=== PATIENT | male | born 1955 | race Caucasian/White ===

== ENCOUNTER → 2016-07-28 | Outpatient (CLI) | payer MEDICARE, OTHER ==
[2016-07-28 09:47] LABS: BASOPHILS % (AUTO) 1 % (0-2); EOSINOPHILS # (AUTO) 0.1 10^3uL; EOSINOPHILS % (AUTO) 2 % (0-4); LYMPHOCYTES # (AUTO) 1.5 X10^3; MEAN CORPUSCULAR HEMOGLOBIN 30.3 PG (26.0-34.0); MEAN CORPUSCULAR HGB CONC 35.1 g/dL (31.0-37.0); MEAN CORPUSCULAR VOLUME 86 FL (80-100); MEAN PLATELET VOLUME 9.3 FL (6.0-9.5); MONOCYTES # (AUTO) 0.5 X10^3; MONOCYTES % (AUTO) 8 % (3-11); NEUTROPHILS # (AUTO) 4.3 X10^3; NEUTROPHILS % (AUTO) 66 % (51-67); PLATELET COUNT 145 10^3uL (150-450); WHITE BLOOD COUNT 6.53 10^3uL (4.0-11.0)
[2016-07-28 09:59] LABS: ALBUMIN 4.4 g/dL (3.4-5.0); ANION GAP 15.7 MEQ/L (3-15); TOTAL PROTEIN 7.6 g/dL (6.4-8.5)
== END ==
LOC: LAB 09:35
PROVIDERS: ATTEND Internal Medicine
DX: Z00.00 Encounter for general adult medical examination without abnormal findings (principal); E11.9 Type 2 diabetes mellitus without complications; I10 Essential (primary) hypertension
CPT/HCPCS: 36415; 80053; 80061; 82043; 83036; 84443; 85025

== ENCOUNTER → 2016-09-23 | Outpatient (CLI) | payer MEDICARE, OTHER ==
[2016-09-23 10:16] LABS: BILIRUBIN,URINE Negative (Negative); CLARITY,URINE Clear; COLOR,URINE Yellow; GLUCOSE, URINE (UA) 2+ (Negative); LEUKOCYTE ESTERASE ,URINE Negative (Negative); UROBILINOGEN,URINE 0.2 mg/dL (0.2-1.0)
[2016-09-23 10:19] LABS: URINE CENTRIFUGED VOLUME 12 mL
[2016-09-23 10:25] LABS: RBC,URINE 0-2 /HPF
== END ==
LOC: LAB 09:56
PROVIDERS: ATTEND Internal Medicine
DX: Z01.818 Encounter for other preprocedural examination (principal); I10 Essential (primary) hypertension; E11.9 Type 2 diabetes mellitus without complications; I25.10 Atherosclerotic heart disease of native coronary artery without angina pectoris
CPT/HCPCS: 36415; 71020; 81003; 81015; 83036

== ENCOUNTER → 2016-09-25 | Outpatient (REF) | payer MEDICARE, OTHER ==
[2016-09-29 07:50] LABS: WHITE BLOOD COUNT 7.58 10^3uL (4.0-11.0)
[2016-09-29 07:51] LABS: BASOPHILS % (AUTO) 0 % (0-2); EOSINOPHILS # (AUTO) 0.1 10^3uL; EOSINOPHILS % (AUTO) 2 % (0-4); LYMPHOCYTES # (AUTO) 1.9 X10^3; MEAN CORPUSCULAR HEMOGLOBIN 30.3 PG (26.0-34.0); MEAN CORPUSCULAR HGB CONC 34.8 g/dL (31.0-37.0); MEAN CORPUSCULAR VOLUME 87 FL (80-100); MEAN PLATELET VOLUME 9.2 FL (6.0-9.5); MONOCYTES # (AUTO) 0.6 X10^3; MONOCYTES % (AUTO) 8 % (3-11); NEUTROPHILS # (AUTO) 4.9 X10^3; NEUTROPHILS % (AUTO) 65 % (51-67); PLATELET COUNT 162 10^3uL (150-450)
[2016-09-29 07:52] LABS: ERYTHROCYTE SEDIMENTATION RT* 9 mm/hr (0-19)
[2016-09-29 07:53] LABS: CALCULATED IONIZED CALCIUM 4.3 mg/dL (3.8-4.6)
[2016-09-29 07:54] LABS: ALBUMIN 4.2 g/dL (3.4-5.0); TOTAL PROTEIN 6.9 g/dL (6.4-8.5)
== END ==
LOC: LAB 07:34
PROVIDERS: ATTEND Internal Medicine
DX: Z01.818 Encounter for other preprocedural examination (principal); I10 Essential (primary) hypertension; E11.9 Type 2 diabetes mellitus without complications; I25.10 Atherosclerotic heart disease of native coronary artery without angina pectoris
CPT/HCPCS: 80053; 85025; 85652

== ENCOUNTER → 2016-10-01 | Outpatient (CLI) | payer MEDICARE, OTHER ==
[~2016-10-01] MED LIST: AC325T PO; AC500T PO; ACET-2264 PO; AMOX1TAB12 PO; ASP81CT PO; ASPI-860 PO; ATOR10TA PO; CIPR750T23 PO; CLIN-79 PO; CLOP75TA3 PO; CLPD75T PO; CRV6.25T PO; Ciprofloxacin PO; DICL100G13 TOP; ENXP100I SC; ERTA1VIA3 IV; GBPN300C PO; GBPN600T PO; HCTZ12.5T PO; HYDR-3702 PO; HYDR-3811 PO; INSU100C7 SQ; K-ROCEP1PB IV; K-VANCO1PB IV; LD5PT TOP; LISI-596 PO; LISI1TAB10 PO; LISI1TAB6 PO; LSNP10T PO; MAGN500T PO; METF1000 PO; METF500T4 PO; METR500T17 PO; MINO100C40 PO; NEOM10DR9 LEFT EAR; NITR0.4T7 SL; PERCOCET 10/325; RIZA10TA23 PO; SUMA100T2 PO; TRAM-25 PO; VITA1CAP11 PO; VITA1TAB17 PO; WARF5TAB PO; WARF7.5T PO; WHEE1EAC3 MC; ZINC50TA4 PO; [UNRECOGNIZED DRUG - CODE] IV
== END ==
LOC: LAB 11:48
PROVIDERS: ATTEND Internal Medicine
DX: Z01.818 Encounter for other preprocedural examination (principal)
CPT/HCPCS: 87081

== ENCOUNTER → 2016-10-07 | Outpatient (CLI) | payer MEDICARE, OTHER ==
[2016-10-07 09:43] LABS: ANION GAP 19.2 MEQ/L (3-15)
== END ==
LOC: LAB 09:05
PROVIDERS: ATTEND Internal Medicine
DX: I10 Essential (primary) hypertension (principal)
CPT/HCPCS: 36415; 80048

== ENCOUNTER → 2016-10-10 | Outpatient (CLI) | payer MEDICARE, OTHER ==
[2016-10-10 09:05] LABS: BASOPHILS % (AUTO) 0 % (0-2); EOSINOPHILS # (AUTO) 0.2 10^3uL; EOSINOPHILS % (AUTO) 2 % (0-4); LYMPHOCYTES # (AUTO) 1.6 X10^3; MEAN CORPUSCULAR HEMOGLOBIN 30.8 PG (26.0-34.0); MEAN CORPUSCULAR HGB CONC 34.6 g/dL (31.0-37.0); MEAN CORPUSCULAR VOLUME 89 FL (80-100); MEAN PLATELET VOLUME 8.7 FL (6.0-9.5); MONOCYTES # (AUTO) 0.5 X10^3; MONOCYTES % (AUTO) 8 % (3-11); NEUTROPHILS # (AUTO) 4.6 X10^3; NEUTROPHILS % (AUTO) 66 % (51-67); PLATELET COUNT 171 10^3uL (150-450); WHITE BLOOD COUNT 6.96 10^3uL (4.0-11.0)
--- NOTE | 2016-10-10 09:53 | Diagnostic Imaging Report ---
INDICATION: Diabetic with draining sinus along the plantar aspect of the first digit. FINDINGS: There is bunion deformity noted of the first MP joint. There are osteoarthritic degenerative changes noted with no definite bony destruction. The MP joints show moderate degenerative change throughout. There is no evidence of periosteal reactive change. There is diffuse vascular calcification noted in the foot. IMPRESSION: Advanced degenerative changes, first MP joint, with no definite changes to indicate osteomyelitis. Dictated by: Dictated on workstation # [id number]
[2016-10-10 10:40] LABS: ERYTHROCYTE SEDIMENTATION RT* 19 mm/hr (0-19)
== END ==
LOC: LAB 08:51
PROVIDERS: ATTEND Internal Medicine
DX: E11.621 Type 2 diabetes mellitus with foot ulcer (principal); L97.511 Non-pressure chronic ulcer of other part of right foot limited to breakdown of skin
CPT/HCPCS: 36415; 85025; 85652; 86140

== ENCOUNTER 2016-11-08 10:45 | Inpatient (IN) | payer MEDICARE, OTHER ==
[~2016-11-08] VITALS: Ht 172.7 cm; Wt 111.7 kg
--- OUTSIDE RECORDS SUMMARY | 2016-11-08 10:49 | XMS REPORT | Continuity Of Care Document ---
Author Author [facility] Organization [facility] Address [address] [place] [address] Phone Care Team Providers Care Assistant Professor Of Mathematics Name Role Phone ANNE BUTTERFIELD, D PP [phone] UNASSIGNED, PHYSICIAN Unavailable Unavailable SUKHDEEP BUTTERFIELD, M Unavailable MARGARITO BUTTERFIELD, B AT [phone] Results Lab Results Visit/Account #[id number] (January 13, 2016 10:05am - January 13, 2016 1:14pm) Test Result Date/Time 18798-2: COMPLETE BLOOD COUNT WITH DIFF WHITE BLOOD COUNT(4.0-11.0 10E3/UL) 7.0 10E3/UL January 13, 2016 11:50am RED BLOOD COUNT(4.50-5.90 10E6/UL) 4.73 10E6/UL January 13, 2016 11:50am HEMOGLOBIN(13.5-17.5 G/DL) 14.0 G/DL January 13, 2016 11:50am HEMATOCRIT(41.0-53.0 %) 41.5 % January 13, 2016 11:50am MEAN CORPUSCULAR VOLUME(82.0-100.0 FL) 87.7 FL January 13, 2016 11:50am 33980-2: MEAN CORPUSCULAR HEMOGLOBIN(26.0-34.0 PG) 29.6 PG January 13, 2016 11:50am MEAN CORPUSCULAR HGB CONC(31.5-36.5 G/DL) 33.7 G/DL January 13, 2016 11:50am RED CELL DISTRIBUTION WIDTH(11.5-14.5 %) 12.9 % January 13, 2016 11:50am 777-3: PLATELET COUNT(150-450 10E3/UL) 163 10E3/UL January 13, 2016 11:50am MEAN PLATELET VOLUME(8.2-12.4 FL) 9.6 FL January 13, 2016 11:50am 770-8: NEUTROPHILS % (AUTO)(40-70 %) 60 % January 13, 2016 11:50am LYMPHOCYTES % (AUTO)(15-45 %) 30 % January 13, 2016 11:50am 5905-5: MONOCYTES % (AUTO)(2-10 %) 7 % January 13, 2016 11:50am 713-8: EOSINOPHILS % (AUTO)(0-6 %) 2 % January 13, 2016 11:50am 706-2: BASOPHILS % (AUTO)(0-1 %) 1 % January 13, 2016 11:50am 59059-2: IMMATURE GRANS % (AUTO)(0-0 %) 0 % January 13, 2016 11:50am NUCLEATED RBCS (AUTO)(0-0 %) 0 % January 13, 2016 11:50am 751-8: NEUTROPHILS # (AUTO)(2.5-7.5 10E3/UL) 4.2 10E3/UL January 13, 2016 11:50am 73837-4: LYMPHOCYTES # (AUTO)(1.0-4.0 10E3/UL) 2.1 10E3/UL January 13, 2016 11:50am 742-7: MONOCYTES # (AUTO)(0.2-0.8 10E3/UL) 0.5 10E3/UL January 13, 2016 11:50am 711-2: EOSINOPHILS # (AUTO)(0.0-0.4 10E3/UL) 0.2 10E3/UL January 13, 2016 11:50am 704-7: BASOPHILS # (AUTO)(0.0-0.2 10E3/UL) 0.0 10E3/UL January 13, 2016 11:50am IMMATURE GRANS # (AUTO)(0.0-0.0 10E3/UL) 0.0 10E3/UL January 13, 2016 11:50am DIFF TYPE AUTOMATED January 13, 2016 11:50am 09113-6: COMPLETE METABOLIC PROFILE GLUCOSE(70-110 MG/DL) 146 MG/DL January 13, 2016 11:50am BLOOD UREA NITROGEN(6-20 MG/DL) 25 MG/DL January 13, 2016 11:50am CREATININE(0.50-1.20 MG/DL) 1.16 MG/DL January 13, 2016 11:50am 38422-1: EST GLOMERULAR FILTRATION RATE(Greater than or equal to 60) Greater than or equal to 60 Result Comments: If the patient is of -[place] descent/extraction multiply the eGFR value by 1.212 to obtain the actual eGFR. >=60 mg/dL Normal 30-59 mg/dL Moderate Kidney Disease 15-29 mg/dL Severe Kidney Disease <15 mg/dL Kidney Failure January 13, 2016 11:50am BUN CREATININE RATIO(10.0-20.0 RATIO) 22.0 RATIO January 13, 2016 11:50am SODIUM(135-145 MMOL/L) 136 MMOL/L January 13, 2016 11:50am POTASSIUM(3.6-5.0 MMOL/L) 4.5 MMOL/L January 13, 2016 11:50am CHLORIDE(101-111 MMOL/L) 105 MMOL/L January 13, 2016 11:50am 2028-9: CO2(21-31 MMOL/L) 24 MMOL/L January 13, 2016 11:50am ANION GAP(8-18) 12 January 13, 2016 11:50am OSMO CALCULATED(270.0-290.0) 279.0 January 13, 2016 11:50am CALCIUM(8.5-10.5 MG/DL) 9.1 MG/DL January 13, 2016 11:50am BILIRUBIN,TOTAL(0.1-1.2 MG/DL) 0.6 MG/DL January 13, 2016 11:50am ALKALINE PHOSPHATASE(42-121 IU/L) 66 IU/L January 13, 2016 11:50am ASPARTATE AMINO TRANSFERASE(10-42 IU/L) 21 IU/L January 13, 2016 11:50am ALANINE AMINOTRANSFERASE(10-60 IU/L) 21 IU/L January 13, 2016 11:50am TOTAL PROTEIN(6.4-8.2 G/DL) 7.3 G/DL January 13, 2016 11:50am ALBUMIN(3.5-5.5 G/DL) 4.1 G/DL January 13, 2016 11:50am GLOBULIN(2.4-3.6) 3.2 January 13, 2016 11:50am ALBUMIN/GLOBULIN RATIO(0.9-1.8 RATIO) 1.3 RATIO January 13, 2016 11:50am Allergies and Adverse Reactions Allergies and Adverse Reactions Patient Unit Number: [id number] Agent Type Reaction Severity Status NO KNOWN ALLERGIES Drug Allergy Unknown Unknown Active Problem List Problem List Visit/Account #[id number] (January 13, 2016 10:05am - January 13, 2016 1:14pm) Acute Problems: Code/Condition Comments Documented Start Date Documented Resolved Date Code (s) Acute low back pain with right-sided sciatica ICD10: M54.41 Acute low back pain with right-sided sciatica ICD9: 724.2 Acute low back pain with right-sided sciatica SNOMED: 708757186 Acute low back pain with right-sided sciatica Patient Unit Number: [id number] Chronic Problems: Code/Condition Comments Documented Start Date Documented Resolved Date Code (s) Lumbar spinal stenosis ICD10: M48.06 Spinal stenosis of lumbar region ICD9: 724.02 Spinal stenosis of lumbar region SNOMED: 64964097 Spinal stenosis of lumbar region Lumbar spondylosis ICD10: M47.9 Lumbar spondylosis ICD9: 721.3 Lumbar spondylosis SNOMED: 218813499 Lumbar spondylosis Diabetes mellitus ICD10: E11.9 Diabetes mellitus ICD9: 250.00 Diabetes mellitus SNOMED: 47591265 Diabetes mellitus Plan of Care Plan Of Care Visit/Account #[id number] (January 13, 2016 10:05am - January 13, 2016 1:14pm) Patient Instructions percocet take as needed with food (this medication will make you sleepy and constipated. I recommend starting colace) prednisone take as prescribed starting tomorrow. MRI of your low back in [place] call tomorrow morning (script provided) Contact Dr. Wang in am to schedule follow-up tomorrow afternoon Vital Signs Vital Signs Visit/Account #[id number] (January 13, 2016 10:05am - January 13, 2016 1:14pm) Sign First Result Last Result Code(s) Temperature in Fahrenheit Temperature (Fahrenheit): 97.3 [degF] On January 13, 2016 10:04am 8310-5 Body Temperature Weight in Kilograms Weight (Kilograms): 108.3 kg On January 13, 2016 10:04am 3141-9 Weight Measured 55124-1 Body weight measured in kilograms Functional Status Functional and Cognitive Status No Functional Status Data Medications Inpatient/Ordered Medications - Medications administered during hospital visit Visit/Account #[id number] (January 13, 2016 10:05am - January 13, 2016 1:14pm) Medication Route Sig/Schedule Precondition/Indication Comments/ Instructions Codes SUBLIMAZE INJ(FentaNYL CITRATE) 100 MCG/2 ML INJECTION Dose: 1 ML INTRAVEN NOW Label Comments: GIVE BY SLOW PUSH OVER 2-5 MIN MAY INCREASE FALL RISK Fentanyl 0.05 MG/ML Injectable Solution (RxNorm): 846233 SUBLIMAZE INJ (FentaNYL CITRATE) NDC: 81163549093 NORFLEX INJ(ORPHENADRINE CITRATE) 60 MG/2 ML INJECTION Dose: 2 ML INTRAVEN NOW Orphenadrine Citrate 30 MG/ML Injectable Solution (RxNorm): 416318 NORFLEX INJ (ORPHENADRINE CITRATE) NDC: 07057017606 Solu-MEDROL INJ(MethylPREDNISolone SOD SUCC) 125 MG/2 ML INJECTION Dose: 2 ML INTRAVEN NOW Methylprednisolone 62.5 MG/ML Injectable Solution [Solu-Medrol] (RxNorm): 337914 Solu-MEDROL INJ (MethylPREDNISolone SOD SUCC) NDC: 21060930466 Discharge Medications - Medications that patient should continue to take. Review with physician Visit/Account #[id number] (January 13, 2016 10:05am - January 13, 2016 1:14pm) Medication Route Sig/Schedule Precondition/Indication Comments/ Instructions Codes PERCOCET 5-325 MG TABLET(OxyCODONE HCL/ACETAMINOPHEN) 1 EACH TABLET Dose: 1-2 TAB ORAL EVERY 4 HOURS PAIN Acetaminophen 325 MG / Oxycodone Hydrochloride 5 MG Oral Tablet [Percocet] ( RxNorm): 4835486 PERCOCET 5-325 MG TABLET (OxyCODONE HCL/ACETAMINOPHEN) NDC: 39612249566 DELTASONE(PredniSONE) 50 MG TAB Dose: 50 MG ORAL DAILY Prednisone 50 MG Oral Tablet (RxNorm): 167906 DELTASONE (PredniSONE) NDC: 30424365495 History Of Encounters Encounters Visit/Account #[id number] (January 13, 2016 10:05am - January 13, 2016 1:14pm) Account Status Physican Of Record Reason For Visit Visit Diagnosis Start Date/Time Stop Date/Time ER MARY WANG MD RIGHT HIP AND DOWN RIGHT LEG Not Available Jan 13, 2016 10:05am Jan 13, 2016 1:14pm History of Procedures Procedure List No procedures recorded. Discharge Instructions Discharge Instructions Visit/Account #[id number] (January 13, 2016 10:05am - January 13, 2016 1:14pm) DISCHARGE INSTRUCTIONS Physician Documentation Social History Social History No Social History Data. Immunizations Immunizations Patient Unit Number: [id number] Immunizations No immunizations recorded.
--- NOTE | 2016-11-08 10:50 | NUR ---
Pt admitted to [facility] via w/c accompanied by . Pt transfers to weight chair and to bed with two assist and walker. Pt rates pain 10/10 upon activity. Pt assisted to bed, ice packs applied to L knee. Pt states pain is more in L thigh than incisional pain. Skin warm, dry, intact. Resprs nonlabored, even on RA.
[2016-11-08 11:06] VITALS: BP 166/89
[2016-11-08] MEDS ORDERED: DEXTROSE ORAL GEL (GLUTOSE 40%) 15 GM TUBE PO PRN (11:40)
[2016-11-08] MEDS ORDERED: POLYETHYLENE GLYCOL 17 GM (MIRALAX) PACKET PO PRN (11:40)
[2016-11-08] MEDS ORDERED: CALCIUM CARBONATE CHEWABLE 300 MG (TUMS) TABLET PO PRN (11:40)
[2016-11-08] MEDS ORDERED: GLUCAGON EMERGENCY 1 MG/KIT IM PRN (11:40)
[2016-11-08] MEDS ORDERED: DEXTROSE 50% 25 GM/50 ML SYRINGE IV PRN (11:40)
[2016-11-08] MEDS ORDERED: MAG HYDROX/AL HYDROX/SIMETH 200-200-20/5 ML (MAG-AL PLUS) 30 ML UDC PO PRN (11:40)
[2016-11-08 11:59] VITALS: BP 166/89
[2016-11-08] MEDS ORDERED: GBPN300C PO (12:29)
[2016-11-08] MEDS ORDERED: GLIM1TAB PO (12:29)
[2016-11-08] MEDS ORDERED: LISI1TAB8 PO (12:29)
[2016-11-08] MEDS ORDERED: ATOR40TA59 PO (12:29)
[2016-11-08] MEDS: oxyCODONE/ACETAMINOPHEN 5MG-325 MG (PERCOCET) TABLET PO PRN ×3 (12:56→21:06)
[2016-11-08] MEDS ORDERED: RIVA10TA2 PO (13:00)
[2016-11-08] MEDS ORDERED: TAMS-8 PO (13:00)
[2016-11-08] MEDS ORDERED: NF-METHYLP PO (13:00)
[2016-11-08] MEDS ORDERED: OXYC1TAB12 PO (13:00)
[2016-11-08] MEDS ORDERED: METH500T PO (13:00)
[2016-11-08] MEDS ORDERED: TRM50T PO (13:00)
--- NOTE | 2016-11-08 13:00 | NUR ---
PRN Percocet given at this time for c/o L thigh pain rated 10/10. Pt is resting in room, eating lunch with family at this time.
[2016-11-08] MEDS ORDERED: POLY17PO6 PO (13:01)
[2016-11-08] MEDS ORDERED: NITROGLYCERIN SUBLINGUAL 0.4 MG (NITROQUICK) TABLET SL PRN (13:15)
[2016-11-08] MEDS ORDERED: METHOCARBAMOL 500 MG (ROBAXIN) TABLET PO PRN (13:15)
--- NOTE | 2016-11-08 13:18 | NUR ---
Medication review reconciliation: Patient admitted to skilled bed status. Completed medication review and reconciliation using active/home medication listing from acute stay at [facility].
[2016-11-08] MEDS: INSULIN LISPRO 1 UNIT/0.01 ML (HUMALOG) DOSE SC SCH ×3 (13:24→21:00)
[2016-11-08] MEDS: morphine INJ 2 MG/ML 1 ML SYRINGE IM PRN ×2 (13:32→18:43)
--- NOTE | 2016-11-08 13:32 | NUR ---
PRN Morphine IM given at this time for c/o pain 02/12. Denies other needs.
--- NOTE | 2016-11-08 14:04 | History and Physical (E) ---
History & Physical PCP: Brandon Mejia MD CC: "Post-op inpt rehab for left total knee arthroplasty" HPI: This is a 61 y/o M who was transferred from [facility], POD #4 for left total knee replacement for severe OA after failing multiple conservative options. He has been rehabbing in [place] and reports continual pain in the left thigh and proximal knee. Requested transfer to this facility as he lives in town. He continues to report decreased ROM and swelling. States he is doing PT with minimal improvement, but continues to work with them. Reports having some frustration with progress, but is willing to continue to work with rehab. Besides this he states he is doing well. PMH CAD with h/o stent placement HTN DLD Type 2 DM Speech hesitancy H/o DVT Obesity Migraines H/o diabetic foot ulcer Left foot drop Chronic kidney disease, stage unspecified Diabetic peripheral neuropathy PSH Left total knee replacement 11/04/2106 Achilles tendon lengthening with other follow up surgeries in left ankle and foot 2013 Left 5th metatarsal amputation Left rotator cuff surgery Coronary artery stent placement ALLERGIES: Please see list at end of report. HOME MEDICATIONS: Please see list at end of report. FH Mother- HTN, breast cancer Father- HTN, COPD Brother- PE with clotting d/o SH Reports normal mentation and ambulation Denies alcohol, tobacco and illicit drug use ROS CONSTITUTION: Denies weight loss or gain. Denies fever or chills. HEENT: No change in vision or hearing. No sores in mouth, sore throat. CV: No chest pain, palpitations. PULM: No cough, shortness of breath, difficulty breathing. GI: No upset stomach, nausea, vomiting, constipation, or diarrhea. No blood in stool. : No dysuria. No blood in urine. MS: Reports right shoulder pain-chronic, left knee pain, left thigh pain NEURO: LLE weakness. INTEG: No rashes, lesions, or sores. ENDO: No heat or cold intolerance. No polydipsia or polyuria. HEME/LYMPH: No easy bruising or bleeding. No swollen glands. PSYCH: No change in mood or behavior. OBJECTIVE GEN: Awake, alert, oriented, NAD HEENT: EOMI, PERRL, moist oral mucosa. CV: RRR S1 S2 normal with 2/6 systolic murmur LUNGS: CTA B ABD: Soft, NT/ND with normal bowel sounds. EXTR: No C/C/E. Normal peripheral pulses. INTEG: Left knee incision site, C/D/I, no erythema or calor NEURO: No focal motor neuro deficit. MSK: TTP along entire left knee, mild diffuse knee edema, decreased flexion ROM , ligaments stable, pain with left hip flexion although no TTP and FROM, TTP along distal thigh with post-surgical ecchymosis, left foot with 4/5 strength to plantar flexion Weight: 111.7 kg LABS; no new labs, reviewed labs from D/C MICRO: no new micro IMAGING: no new images, report negative sono left knee and thigh, reported negative XR left knee and thigh ASSESSMENT/PLAN This is a 61 y/o M who presents for rehab s/p left total knee arthroplasty POD # 4 1) OA, s/p left total knee arthroplasty with continual pain * Continue pain management and bowel regimen * Continue post-op Xarelto for DVT prophylaxis, consider extended course to 30 days with DVT hx or duration per per ortho rec's * PT/OT rehab 2) Chronic medical conditions * CAD s/p stent- cards, Dr. Aguilar, negative thallium 2017, restart ASA * HTN- continue home Lisinopril/HCTZ and Carvedilol * DM II uncontrolled- A1c >9 09/19, will restart Metformin and Glimepiride, start SS, Med DM diet * Peripheral neuropathy- Continue Gabapentin * Obesity- PT/OT, education * DLD- continue Lipitor * BPH- continue Tamsulosin DVT: Xarelto SUP: not indicated Allergies/Home Medications Allergies: Coded Allergies: No Known Drug Allergies (Unverified , 12/20/13) Reported Home Medications Scheduled Atorvastatin Calcium (Atorvastatin Calcium) 40 MG PO HS (Reported) Carvedilol (Carvedilol) 6.25 MG PO BID WITH MEALS (Reported) Gabapentin (Gabapentin) 300 MG PO TID (Reported) Glimepiride (Glimepiride) 1 MG PO DAILY (Reported) Lisinopril/Hydrochlorothiazide (Lisinopril-HCTZ 20-12.5 mg Tab) 1 TAB PO DAILY ( Reported) Metformin HCl (Metformin HCl) 1,000 MG PO BID WITH MEALS (Reported) Methylprednisolone (Medrol) 4 MG PO Q6H (Reported) Polyethylene Glycol 3350 (Miralax) 17 GM PO BID (Reported) Rivaroxaban (Xarelto) 10 MG PO DAILY (Reported) Tamsulosin HCl (Flomax) 0.4 MG PO DAILY@1000 (Reported) Scheduled PRN Acetaminophen (Acetaminophen) 650 MG PO Q6H PRN PRN PAIN Methocarbamol (Robaxin) 750 MG PO TID PRN PRN SPASMS (Reported) Nitroglycerin (Nitroglycerin) 0.4 MG SL Q15M PRN PRN CHEST PAIN (Reported) Oxycodone HCl/Acetaminophen (Percocet 10mg/325mg) 1 TAB PO Q4H PRN PRN MODERATE PAIN (Reported) Tramadol HCl (Tramadol HCl) 50 MG PO Q4H PRN PRN MILD PAIN (Reported) Discontinued Medications Amoxicillin/Clavulanate Potassium (Augmentin 875mg/125mg) 1 TAB PO BID Discontinued Reason: Update list Aspirin (Aspirin) 81 MG PO DAILY (Reported) Discontinued Reason: Update list Gabapentin (Gabapentin) 600 MG PO TID (Reported) Hydrocodone Bit/Acetaminophen (Hydrocodon-Acetaminophen 7.5-325) 1 EACH PO Q4H PRN PRN PAIN (Reported) Discontinued Reason: Update list Magnesium Oxide (Magnesium Oxide) 500 MG PO DAILY (Reported) Discontinued Reason: Update list Neomy Sulf/Polymyx B Sulf/Hc (Cortisporin Otic Suspension) 4 DROPS LEFT EAR TID Discontinued Reason: Course completed Rizatriptan Benzoate (Maxalt) 10 MG PO PRN MIGRAINE (Reported) Discontinued Reason: Update list Zinc Gluconate (Zinc) 50 MG PO DAILY (Reported) Discontinued Reason: Update list Copies to: End of Report . KRISTEN ANN DO November 08, 2016 14:04
--- NOTE | 2016-11-08 17:30 | NUR ---
PRN Percocet given at this time for c/o L thigh pain rated 8/10. Pt states pain is much better than earlier. States the physical therapist really helped him understand what the thigh pain is from and gave him exercises to work on. Pt has the initiative to get OOB and ambulate to toilet and not use BSC. States he wants to do what he can do feel better sooner. Denies other needs.
[2016-11-08] MEDS: metFORMIN 1000 MG (GLUCOPHAGE) TABLET PO SCH (17:35)
[2016-11-08] MEDS: GABAPENTIN 300 MG (NEURONTIN) CAP PO SCH (17:35)
[2016-11-08] MEDS: CARVEDILOL 6.25 MG (COREG) TAB PO SCH (17:35)
[2016-11-08 20:00] VITALS: BP 150/81
[2016-11-08] MEDS: ATORVASTATIN 40 MG (LIPITOR) TABLET PO SCH (21:05)
[2016-11-08] MEDS: DOCUSATE SODIUM 100 MG (COLACE) CAP PO SCH (21:05)
--- NOTE | 2016-11-08 21:10 | NUR ---
Percocet 5 (2) PO given for left knee and leg pain rated "8". Pt. and this nurse discuss plan for PRN pain meds for duration of shift. Accucheck this evening is 157; sliding scale insulin not required. just left for the evening; pt. ready for sleep. Call light and H2O within reach.
[2016-11-09] MEDS: oxyCODONE/ACETAMINOPHEN 5MG-325 MG (PERCOCET) TABLET PO PRN ×4 (00:54→10:08)
--- NOTE | 2016-11-09 00:55 | NUR ---
Percocet 5 (2) PO given for pain rated "7" in left knee/thigh.
[2016-11-09] MEDS: morphine INJ 2 MG/ML 1 ML SYRINGE IM PRN (02:50)
--- NOTE | 2016-11-09 02:50 | NUR ---
Morphine injection given by Sana/RN for left knee pain unresolved by previous pain med; rated "6".
--- NOTE | 2016-11-09 04:07 | NUR ---
Ultram 50 mg PO given for left knee pain. Repositioning; warm blanket also provided.
--- NOTE | 2016-11-09 05:10 | NUR ---
Percocet 5 (2) PO given for pain rated "10" in left knee and left thigh. Warm blanket also wrapped for comfort. H2O and call light within reach.
[2016-11-09 06:09] LABS: BASOPHILS % (AUTO) 0 % (0-2); EOSINOPHILS # (AUTO) 0.2 10^3uL; EOSINOPHILS % (AUTO) 2 % (0-4); LYMPHOCYTES # (AUTO) 2.1 X10^3; MEAN CORPUSCULAR HEMOGLOBIN 30.5 PG (26.0-34.0); MEAN CORPUSCULAR HGB CONC 33.9 g/dL (31.0-37.0); MEAN CORPUSCULAR VOLUME 90 FL (80-100); MEAN PLATELET VOLUME 8.8 FL (6.0-9.5); MONOCYTES # (AUTO) 1.1 X10^3; MONOCYTES % (AUTO) 12 % (3-11); NEUTROPHILS # (AUTO) 5.4 X10^3; NEUTROPHILS % (AUTO) 61 % (51-67); PLATELET COUNT 206 10^3uL (150-450); WHITE BLOOD COUNT 8.84 10^3uL (4.0-11.0)
[2016-11-09 06:22] LABS: ANION GAP 14.8 MEQ/L (3-15)
--- NOTE | 2016-11-09 06:36 | NUR ---
Accucheck is 88 this morning.
[2016-11-09] MEDS: INSULIN LISPRO 1 UNIT/0.01 ML (HUMALOG) DOSE SC SCH ×4 (07:30→20:47)
[2016-11-09 07:45] VITALS: BP 123/73
[2016-11-09] MEDS: ASPIRIN 81 MG CHEW (LOW-DOSE) PO SCH (08:27)
[2016-11-09] MEDS: GLIMEPIRIDE 2 MG (AMARYL) TAB PO SCH (08:27)
[2016-11-09] MEDS: CARVEDILOL 6.25 MG (COREG) TAB PO SCH ×2 (08:27→18:00)
[2016-11-09] MEDS: DOCUSATE SODIUM 100 MG (COLACE) CAP PO SCH ×2 (08:27→20:43)
--- NOTE | 2016-11-09 08:27 | NUR ---
Pt sitting up in chair. States he did not have a good night d/t pain. States it feels the same as it did when he came in. Informed pt we could talk to Dr about altering the pain plan. Pt states "we can just wait until Dr Mckenna gets here tomorrow so that Dr Doll doesn't change it all and then Dr Mckenna change it all again tomorrow". Informed pt we would ensure that we get his pain under control. Lavon aware. PRN Ultram given at this time. Denies other needs.
[2016-11-09] MEDS: GABAPENTIN 300 MG (NEURONTIN) CAP PO SCH ×3 (08:28→18:00)
[2016-11-09] MEDS: HYDROCHLOROTHIAZIDE 12.5 MG (HCTZ) TABLET PO SCH (08:29)
[2016-11-09] MEDS: metFORMIN 1000 MG (GLUCOPHAGE) TABLET PO SCH ×2 (08:29→18:00)
[2016-11-09] MEDS: lisINopril 20 MG (PRINIVIL) TABLET PO SCH (08:29)
[2016-11-09] MEDS ORDERED: GLIMEPIRIDE 1 MG PO SCH (09:00)
[2016-11-09] MEDS ORDERED: TAMSULOSIN 0.4 MG (FLOMAX) CAP PO SCH (10:00)
--- NOTE | 2016-11-09 10:10 | NUR ---
PRN Percocet given at this time. Muscle relaxer offered, pt states he will wait to alternate that with the percocet. Denies other needs. Ambulated from bed to recliner with SBA and walker. Pt endorses excruciating pain upon activity, but once he gets settled into new position, he laughs and jokes with staff. Denies other needs.
[2016-11-09] MEDS: RIVAROXABAN 10 MG (XARELTO) TABLET PO SCH (10:11)
--- NOTE | 2016-11-09 11:50 | NUR ---
Pt sleeping soundly in bed at this time. Pt did not rest well overnight, so staff will allow pt to sleep.
--- NOTE | 2016-11-09 13:15 | NUR ---
PRN Ultram given at this time for c/o L thigh/knee pain. Pt states that he woke up from a nap and was hot and sweaty. Denies other needs.
[2016-11-09] MEDS: oxycODONE/ACETAMINOPHEN 10MG-325 MG (PERCOCET-10) TABLET PO PRN ×2 (15:02→20:43)
--- NOTE | 2016-11-09 15:04 | NUR ---
PRN Percocet given at this time for continued L knee pain. Visitors and at bedside. Ice packs applied to L knee. Denies other needs.
[2016-11-09] MEDS ORDERED: NS FLUSH 3 ML PRN IV (16:00)
[2016-11-09] MEDS: morphine INJ 2 MG/ML 1 ML SYRINGE IV PRN ×2 (16:32→20:47)
--- NOTE | 2016-11-09 16:47 | Progress Note (E) ---
Progress Note S: Pt has poor pain control with morphine IM Q4 and Percocet 5/325 Q6, both prn. He has been taking enough Percocet that he has been getting too much acetaminophen. He tries to not take the morphine, but then his pain gets much worse. PT went well yesterday, but he is hurting quite a bit today. He hasn't really been up today and he is starting to get nauseous. He was started on Flomax before discharge as he was having a hard time emptying his bladder. He is wondering if this needs to be continued. GEN: Awake, alert, oriented, NAD EXTR: No C/C/E. Normal peripheral pulses. INTEG: Left knee incision site, C/D/I, no erythema or calor NEURO: No focal motor neuro deficit. MSK: TTP along entire left knee, mild diffuse knee edema LABS; no new labs MICRO: no new micro IMAGING: no new images, report negative sono left knee and thigh, reported negative XR left knee and thigh ASSESSMENT/PLAN This is a 61 y/o M who presents for rehab s/p left total knee arthroplasty POD # 5 1) OA, s/p left total knee arthroplasty with continual pain * Continue pain management but will make morphine IV vs IM and increase Percocet to 10/325 in order to cut down on acetaminophen use. * Continue post-op Xarelto for DVT prophylaxis, consider extended course to 30 days with DVT hx or duration per ortho rec's * PT/OT rehab 2) Chronic medical conditions * CAD s/p stent- cards, Dr. Aguilar, negative thallium 2017, restart ASA * HTN- continue home Lisinopril/HCTZ and Carvedilol * DM II uncontrolled- A1c >9 09/19, will restart Metformin and Glimepiride, start SS, Med DM diet * Peripheral neuropathy- Continue Gabapentin * Obesity- PT/OT, education * DLD- continue Lipitor * Urine retention - doesn't seem to be a problem now. Will let him go without and see how he does. DVT: Jose Carlos Claros MD November 09, 2016 16:47
--- NOTE | 2016-11-09 18:28 | NUR ---
Pt resting in chair at this time. Pt has done a few exercises that PT instructed him to do yesterday. Pt rates pain 6/10 while doing exercises. States IV morphine helped him sleep. Skin warm, dry, intact. Resprs nonlabored, even on RA. Chinyere changed this am to L knee. Denies other needs. at bedside.
[2016-11-09 19:41] VITALS: BP 133/62
[2016-11-09] MEDS: ATORVASTATIN 40 MG (LIPITOR) TABLET PO SCH (20:43)
[2016-11-10] MEDS: morphine INJ 2 MG/ML 1 ML SYRINGE IV PRN (04:24)
--- NOTE | 2016-11-10 04:43 | NUR ---
1930-Pt is sitting up in bed visiting with his , reports pain to left knee is 5/10 at this time. Dressing to left knee is clean, dry, and intact. Pt currently has ice packs to left knee. SL is patent, no redness, swelling, or s/s of infection noted at this time. 2042-Pt is reporting his pain is 10/10, this RN gives him Percocet 10/325mg 1 tab PO for discomfort. Pt request morphine at this time for some immediate relief. 2046-Pt is given morphine 2mg SIVP for discomfort, pt is crying out in discomfort. Reapplied ice packs and will continue to monitor. 2332-Pt is awake and reports pain is 10/10, gave 1 tab PO of Ultram 50mg for discomfort. Pt wants to know why he can not have his IV morphine again, this RN explained that it was to early. 5-Pt reports that something is wrong with his knee, that it shouldn't be hurting this bad, this RN tried to explain that it is completely normal to have pain after surgery and that the pain medication will not take all the pain away. This RN did notify DR. Coburn and received order for Dilaudid 0.5mg IV q 2hrs PRN Pain. 0000-Pt is given Dilaudid 0.5mg SIVP for left knee pain will continue to monitor. 4-Pt is awake and rates pain 10/10 and wants his IV pain medication. This RN gave Morphine 2mg SIVP for discomfort to left knee. Will continue to monitor.
[2016-11-10] MEDS ORDERED: HYDROmorphone 1 MG/ML (DILAUDID) SYRINGE IV PRN ×2 (06:45)
--- NOTE | 2016-11-10 07:22 | Progress Note (E) ---
Progress Note SUBJECTIVE Overnight, was reportedly shouting out in pain rating knee pain still 10/10 at times despite escalation of oxycodone/acetaminophen to 10/325 and having IV morphine available. Overnight physician offered hydromorphone but even as of 429 this AM pain 10/10. Vitals stable and remains on room air. Afebrile. Has had at least 1 BM since admit. Glucose under good control. reports history that post-op, he had pain in his left upper thigh. He also had had a drain in the left knee that accidentally got pulled out earlier than had been intended... it got pulled out after he had transferred from chair to bed before being moved to this facility. Also, he had been started on prednisone prior to transfer thought this was not continued on admit here. On exam, stirs readily. Alert and interactive. Knee is as described. Discussed findings, plan of care. OBJECTIVE Vital Signs Date Time Temp Pulse Resp B/P Pulse Ox O2 Delivery O2 Flow Rate FiO2 11/09/16 19:41 97.2 84 16 133/62 94 Room air I & O 11/09/16 11/10/16 Cumulative From/Thru 19:00 07:00 11/08/16 11:06 - 11/10/16 06:11 Intake Total 696 ml 1279 ml 4000 ml Output Total 1025 ml 2800 ml 6050 ml Balance -329 ml -1521 ml -2050 ml GEN: Interactive, oriented. Uncomfortable with knee movement. HEENT: EOMI, clear sclerae, moist oral mucosa. CV: Regular without murmur. PULM: CTA B with no R/R/W. ABD: Soft, NT/ND with normal bowel sounds. EXTR: Trace edema BLE with L > R. INTEG: No rash. Warm, dry, well-perfused. MS: Left knee incision with some dried serosanguineous secretions. Steri-strops intact. No fresh drainage on gauze bandage. 3+ knee edema. Some warmth but no overlying erythema. NEURO: No focal motor neuro deficit. Gait not assessed. Lab-Past 14 Days, 35 Results 11/09/16 05:30: Anion Gap 14.8, BUN/Creatinine Ratio 27H, Basophils # (Auto) 0.0, Basophils (%) (Auto) 0, Blood Urea Nitrogen 29H, Calcium Level 9.2, Carbon Dioxide Level 28, Chloride Level 102, Creatinine 1.08, Eosinophils # (Auto) 0.2, Eosinophils (%) ( Auto) 2, Estimat Glomerular Filtration Rate 84.4, Estimated GFR (Non- 69.7, Glucose Level 87#, Hematocrit 29.50L, Hemoglobin 10.0L, Lymphocytes # (Auto) 2.1, Lymphocytes (%) (Auto) 24, Mean Corpuscular Hemoglobin 30.5, Mean Corpuscular Hemoglobin Concent 33.9, Mean Corpuscular Volume 90, Mean Platelet Volume 8.8, Monocytes # (Auto) 1.1, Monocytes (%) (Auto ) 12H, Neutrophils # (Auto) 5.4, Neutrophils (%) (Auto) 61, Platelet Count 206, Potassium Level 4.2, Red Blood Count 3.28L, Red Cell Distribution Width 13.0, Sodium Level 141, White Blood Count 8.84 ASSESSMENT Thomas Skaggs is a 61 year old male admitted to [facility] as a transfer from [facility] where had left total knee replacement. He had swelling and increased pain which made rehab challenging. He has several chronic problems. PLAN * Left knee pain, S/P Left knee replacement: Persistent despite escalation of pain medication. Streamlined regimen 11/10 with increased oxycodone/ acetaminophen and increased hydromorphone. Stopped morphine. Added lidoderm. Monitor closely for signs of surgical complications. (Noted labs 11/09 were reassuring.) If pain and function not improving, discuss with orthopedic surgeon (Dr. Packer.) * Physical Deconditioning, OA: PT/OT eval and treat. * F/E/N: Diabetic diet. Peripheral IV. I&O to monitor BMs. * Prophylaxis: Rivaroxaban * Code Status: Full * Dispo: [facility] for above issues, expecting 2-3 week stay. CHRONIC ISSUES * CAD: Aspirin * HLD: Atorvastatin * HTN: Carvedilol, HCTZ, Lisinopril * Constipation: Bowel regimen * Chronic Pain, Diabetic Peripheral Neuropathy: Gabapentin * Diabetes Mellitus Type II: Glimepiride, metformin, sliding scale. SANDRA QUARLES MD November 10, 2016 07:03
[2016-11-10 07:29] VITALS: BP 142/90
[2016-11-10] MEDS: INSULIN LISPRO 1 UNIT/0.01 ML (HUMALOG) DOSE SC SCH ×4 (07:30→21:00)
--- NOTE | 2016-11-10 08:30 | NUR ---
I assisted patient to the bathroom- stand by assist only. The patient complained of significant pain rated 20/10. I educated him on the importance of not holding his breath during episodes of intense pain as this could make the situation worse.
[2016-11-10] MEDS: RIVAROXABAN 10 MG (XARELTO) TABLET PO SCH (08:33)
[2016-11-10] MEDS: DOCUSATE SODIUM 100 MG (COLACE) CAP PO SCH ×2 (08:34→19:48)
[2016-11-10] MEDS: metFORMIN 1000 MG (GLUCOPHAGE) TABLET PO SCH ×2 (08:34→17:52)
[2016-11-10] MEDS: HYDROCHLOROTHIAZIDE 12.5 MG (HCTZ) TABLET PO SCH (08:34)
[2016-11-10] MEDS: GABAPENTIN 300 MG (NEURONTIN) CAP PO SCH ×3 (08:34→17:52)
[2016-11-10] MEDS: GLIMEPIRIDE 2 MG (AMARYL) TAB PO SCH (08:34)
[2016-11-10] MEDS: CARVEDILOL 6.25 MG (COREG) TAB PO SCH ×2 (08:34→17:52)
[2016-11-10] MEDS: ASPIRIN 81 MG CHEW (LOW-DOSE) PO SCH (08:35)
[2016-11-10] MEDS: lisINopril 20 MG (PRINIVIL) TABLET PO SCH (08:35)
[2016-11-10] MEDS: NS FLUSH 3 ML DAILY IV SCH ×2 (08:39→19:49)
[2016-11-10] MEDS ORDERED: LIDOCAINE (LIDODERM) 5% PATCH TOP SCH (09:00)
--- NOTE | 2016-11-10 09:02 | NUR ---
NUTRITION ASSESSMENT Level 1 Patient: Thomas Skaggs Age/Sex: 61/M Date Screened: 11-10-16 Weight: 245.73/111.7 kg Height: 68 inches Primary Diagnosis: swing bed, left total knee replacement Diet Order: medium diabetic Relevant labs: N/A Food allergies: N Nutrition Assessment Criteria Age over 80: N Body Mass Index (BMI) under 19: N Admission Screening Indicates Risk? 3 points Moderate/High Risk Diagnosis: N TPN or PPN: N NPO or clear liquid diet: N Serum Glucose <70 or >180: N/A Hgb A1c >6.7: N/A Total: 3 points Risk Screen: __ Patient at low nutritional risk based on available data; reevaluate in 5-7 days _X_ Patient at moderate nutritional risk based on available data; reevaluate in 3-5 days __ Patient at high nutritional risk; complete Nutrition Assessment within 48 hours of admission. Comments: No weight loss (pt. has actually been gaining weight over the past couple of years, last documented at 233# in 2014), no GI concerns other than occasional nausea with inadequate pain relief. He is eating an average of 60% of medium diabetic diet; expect appetite to improve with pain control. Will reassess as documented above.
--- NOTE | 2016-11-10 11:00 | NUR ---
Ambulated back from the shower with stand by assist and encouragement. PT staff worked with the patient on deep breathing techniques to help him relax with the pain.
--- NOTE | 2016-11-10 11:27 | OT Therapy Evaluation (E) ---
POC Plan of Care Problems Identified: Activity Tolerance, ADLs, Balance, Lt UE Strength, Pain, Rt UE Strength, Sensation Plan: Evaluation-OT, ADL/Self Care Management, Therapy Exercises, Therapy Activities Frequency of OT: Five times weekly Duration of OT: 3 weeks Therapy to Include: ADL training, Manual therapy, Pt/family education, Therapeutic activities, UE coord. training, UE strengthing Discharge Recommendations: Caregiver support Pt would benefit from skilled occupational therapy services to improve independence with self care tasks for return to prior level of function. Pt. Aware of Dx and Prognosis: Yes Pt. Aware of Risk & Benefit: Yes Goals: Discussed with patient Short Term Goals STG Time Frame: 5 Days Will Dress Upper Extremity: With Setup/SBA Will Dress Lower Extremity: With Min Assistance Will do Bathing: With Setup/SBA Will do Toileting: With Min Assistance Will Perform Funct Transfer: With Setup/SBA STG #1 Pt will participate in 20 min of ther-ex with four or less rest breaks. STG #2 Pt will complete grooming tasks standing at sink with SBA. Care Home Goals LTG Time Frame: 3 Weeks Will Dress Upper Extremity: Independently Will Dress Lower Extremity: Independently Will do Tub/Shower Transfer: Independently Will Bathe Self: Independently Will do Toilet Transfers: Independently Will do Toilieting: Independently Will Perform Kitchen Mobility: Independently LTG # 1 Pt will participate in 5 minute functional standing task with demonstration of good safety awareness and modified independence. Inital Evaluation/General Service Date/Time 11/10/16, 11:27 Primary Diagnosis: (1) Total knee replacement status ICD Code: Z96.659 Treatment Diagnosis: (1) Weakness ICD Code: R53.1 Onset Date: 11/04/16 Start of Care Date: November 10, 2016 Precaution/Isolation: Standard Precautions Fall Level: Low Risk 25-50 Resuscitation Status: Full Code Reason for Referral: Evaluation and Treat Pertinent Medical History: Other (PMH: CAD, HTN, DLD, Type 2 DM, Speech hesitancy, obesity, migraines, L foot drop, diabetis peripheral neuropathy) Pain Level: 10 Pain Locattion/Comments Pt reports 20/10 pain along L knee Oxygen Needed: Room air Rehabilitation Potential: Good Potential Based On Patient's motivation to get better. Rational for Skilled Treatment: Allow return to home, Assistance with ADLs, Deconditioning, Maximize Safety Living Status Prior to Admit: With Spouse Prior Level of Function: Independent ADLs Prior to onset, pt reports independent with all self care tasks. presents during initial evaluation. reports pt has had problems with L knee since incident 40 years ago. Was able to do all activities with increased pain. and pt share responsibilities for simple IADL tasks. Pt still drives. Plans Following Discharge: Return Home Support Persons: Entry Into Home: [place] with Railing Steps Into Home: 2 (2 step with railing and 1 step into home ) Shower and Tub Type: Tub/shower combo-rails Assist Devices: Tub Bench Toilet Type: Standard Comment Pt does not use an assistive device for functional mobility. Has a AFO for left foot drop. Current Function Assessment Mental Status Patient Orientation: Person, Place, Time, Situation, Mumbles (Pt demonstrates some speech hesitancy during evaluation. ) Mental Status: Alert, Other (Noted pt in severe pain during evaluation with noted wincing when moving LLE. ) Cognition Attention: Intact Visual/Perceptual Skills Glassess: Yes Hand Dominance Hand Dominance: Right ROM/Strength ROM Comment LUE WFL, RUE grossly 75% of total shoulder movement secondary to rotator cuff injury. Pt reports plans of getting rotator cuff surgery in the future. Strength Comment RUE not strength tested due to injury. RUE 4-/5 Neurological Coordination: WNL Bed Mobility/Transfers Sit to Stand: Minimum assist Chair Transfer: Minimum assist Functional transfer not tested this date secondary to pt's significant pain levels. Will assess next session. Dressing Dressing: Moderate assist Bathing Shower/Bench Transfer Ability: Minimum assist Bathing- Type of Assistance: Moderate Assist Toileting Toilet Hygiene: Moderate Assist Toilet Transfer Ability: Minimum assist CPT/G Codes Time In: 8:12 Time Out: 8:31 Total Minutes: 19 (07/24 eval) CPT Codes: 71099 Eval< 20 minutes (07/24 eval) BIJU RM OT November 10, 2016 11:27
--- NOTE | 2016-11-10 11:30 | NUR ---
Incision on the right knee looks good. No redness or significant edema noted. skin color around the surgical site and in the lower leg is pink.
--- NOTE | 2016-11-10 13:04 | PT Daily Note Inpatient (E) ---
PT Daily Treatment Service Date/Time 11/10/16, 12:53 Medical Diagnosis: (1) Total knee replacement status ICD Code: Z96.659 Physical Therapy: Precaution/Isolation: Standard Precautions Resuscitation Status: Full Code Fall Level: Low Risk 25-50 Subjective Initial evaluation was completed by weekend PT on Thursday written eval and daily note can be found in patient's paper chart at nurses station. Patient presents with severe pain in left knee joint this date. PT agreed to assist patient with shower and patient was agreeable after conversation with attempting to ambulate to shower. Pain reported greater than 10/10. PT encouraged deep breathing. Oxygen Delivery: Room air Treatments Sit, Stand, Supine: Sitting Extremity: Left Lower Extremity Repetition: Other (Functionally work on in knee flexion/extension with sit to stand transfers and donning of shoes/socks ) Exercise: AP, QS, Heel Slides Transfers Rolling: Not Assessed/NA Sit-Supine: Not Assessed/NA Sitting Edge of Bed: Supervision or setup Supine-Sit: Not Assessed/NA Sit-Stand from bed: Minimal Assistance Stand-Sit: Minimal Assistance Gait Ambulation: Contact Guard Assist Distance Walked: 2x 35 feet to and from shower followed by w/c. Pt ambulated to shower with use of AFO and shoes, returned from shower ambulating with no skid socks per his request. Patient requires max assist to don left shoe. Assistive Device: FWW Gait Assist: Min Assist/Contact Guard Gait Description: Wide Based Gait, Antalgic Gait, Short Step Length, Step-To Gait Pattern Gait Training: Limitations: Pain Patient demonstrated improved gait sequencing after shower. Patient required max assist to wash feet and back, but otherwise completed shower with supervision. sit to stand from shower chair with min assistance, patient attempted to assist with donning underwear and shorts but had difficulty maintaining balance. Education/Plan Education Education Needs: Use of Devices/Equipment, Breathing Technique (Emphasis on deep breathing to decrease mm tension. ) Patient was educated on process of recovery from a total knee and to not compare his recovery to someone else's secondary to different circumstances people have prior to surgery. Educated patient we will assist him through this and discussed pain control options. Assessment After shower patient more relaxed and was able to complete a few repetitions of knee flex/ext, quad sets and hip abd/add AAROM with gait belt. Plan Continue to improve lower extremity ROM, strengthening, and may use vasopneumatic device for swelling and pain. PT did not apply vaso this date secondary to patient just getting lidocaine patches placed around the knee joint. Coding Time In: 1157 Time Out: 1214 Total Minutes: 17 Charges: 13211 Gait Training 15 mi, [id number] PT November 10, 2016 13:04
--- NOTE | 2016-11-10 14:29 | OT Activity Assessment (E) ---
Activity Assessment Service Date/Time 11/10/16, 14:15 Activities Games: Chess, Doninoes Card Games: Other (peanuckle and hand and foot) Gardening: Vegetables (tomatoes) Outing: Ballgames (cardinals and cubs), Other (movies) Music: Gospel, 50's & 60's (70s) Household: Baking, Cleaning, Cooking, [facility] washing, Laundry Sports: Baseball Television: Drama (forensic files, murder school business manager shows) Computer: Internet, Other (email) Reading: Newspaper Movies: Other (True stories) Information from Patient: Yes (Pt wonts t regulate pain and get moving.,) Zakiya Toledo November 10, 2016 14:29
--- NOTE | 2016-11-10 14:45 | NUR ---
MULTIDISCIPLINARY MTG/DR. QUARLES: Pt. admitted to [facility] after having a total knee replacement at [facility]. Pt. has had poor pain control and pain regimen has been changed. Pt. knee looks good. Pt. expected to stay a week. No discharge needs identified at this time.
--- NOTE | 2016-11-10 14:46 | OT Daily Note Inpatient (E) ---
OT Daily Treatment Service Date/Time 11/10/16, 14:30 Primary Diagnosis: (1) Total knee replacement status ICD Code: Z96.659 Treatment Diagnosis: (1) Weakness ICD Code: R53.1 Onset Date: 11/04/16 Start of Care Date: November 10, 2016 Precaution/Isolation: Standard Precautions Fall Level: Low Risk 25-50 Resuscitation Status: Full Code Current Activity: Agrees to participate, Up in chair I dont think that relaxation stuff will work on a knee. Maybe if I had a headache or something but not a knee. Pain Level: 10 Pain Location/Comment knee Oxygen Needed: Room air Current Function Assessment Visual/Perceptual Skills Glassess: Yes Hand Dominance Hand Dominance: Right Additional Assessment/Comments Activity assessment performed. Pt has limited interest. He likes [employer], dominos , crime concrete buildings assembler shows and True Story movies. Likes [email or web address].l Education/Assessment Education Provided: Other (Relaxation techniques to decrease pain. Pt was not receptive of this type of therapy) Education Evalution: Limited understanding, Unable to comprehend, Unable to return demo Readiness to Learn: Poor Problems Impacting Treatment: Pain Rehabilitation Potential: Good Pt high pain level and attempting to get an IV started was unsucessful x 2 before tx. POC Plan of Care Problems Identified: Activity Tolerance, ADLs, Balance, Lt UE Strength, Pain, Rt UE Strength, Sensation Plan: Evaluation-OT, ADL/Self Care Management, Therapy Exercises, Therapy Activities Frequency of OT: Five times weekly Duration of OT: 3 weeks Therapy to Include: ADL training, Manual therapy, Pt/family education, Therapeutic activities, UE coord. training, UE strengthing Pt. Aware of Dx and Prognosis: Yes Pt. Aware of Risk & Benefit: Yes Goals: Discussed with patient Short Term Goals STG Time Frame: 5 Days Will Dress Upper Extremity: With Setup/SBA Will Dress Lower Extremity: With Min Assistance Will do Bathing: With Min Assistance Will do Toileting: With Min Assistance Will Perform Funct Transfer: With Setup/SBA STG #1 Pt will participate in 20 min of ther-ex with four or less rest breaks. STG #2 Pt will complete grooming tasks standing at sink with SBA. [facility] Goals LTG Time Frame: 3 Weeks Will Dress Upper Extremity: Independently Will Dress Lower Extremity: Independently Will do Tub/Shower Transfer: Independently Will Bathe Self: Independently Will do Toilet Transfers: Independently Will do Toilieting: Independently Will Perform Kitchen Mobility: Independently LTG # 1 Pt will participate in 5 minute functional standing task with demonstration of good safety awareness and modified independence. CPT/G Codes Time In: 1412 Time Out: 1436 Total Minutes: 24 CPT Codes: 69838 Therp Activity Zakiya Toledo November 10, 2016 14:46
[2016-11-10] MEDS: NS FLUSH 10 ML PRN IV (15:06)
[2016-11-10] MEDS: HYDROmorphone 2 MG/ML (DILAUDID) 1 ML SYRINGE IV PRN ×3 (15:07→22:45)
[2016-11-10 15:39] VITALS: BP 126/56
--- NOTE | 2016-11-10 16:00 | NUR ---
Patient ambulated to the bathroom instead of using the urinal.
[2016-11-10] MEDS: oxycODONE/ACETAMINOPHEN 10MG-325 MG (PERCOCET-10) TABLET PO PRN (16:11)
--- NOTE | 2016-11-10 18:44 | NUR ---
Patient continues to rate pain 10/10 before and after pain medication. Continued to encourage relaxation techniques and deep breathing during leg movement. Also educated the patient that he would not be pain free especially only 6 days out from OR.
--- NOTE | 2016-11-10 19:05 | NUR ---
Patient is up on his feet ambulating again.
[2016-11-10] MEDS: ATORVASTATIN 40 MG (LIPITOR) TABLET PO SCH (19:48)
[2016-11-10 20:12] VITALS: BP 123/72
[2016-11-11] MEDS: HYDROmorphone 2 MG/ML (DILAUDID) 1 ML SYRINGE IV PRN ×4 (03:04→21:05)
[2016-11-11] MEDS: NS FLUSH 10 ML PRN IV ×3 (03:05→10:22)
--- NOTE | 2016-11-11 04:30 | NUR ---
1945-Pt had been up ambulating in hallway with , reports pain is a 10/10, this RN gave Dilaudid 2mg SIVP for discomfort at this time. SL is patent, no redness, swelling, or s/s of infection noted at this time. 2315-Pt is up to restroom and rates pain 10/10, this RN gave Dilaudid 2mg SIVP for discomfort. Will continue to monitor. 0304-Pt is up to restroom, rates pain 10/10, request IV pain medication at this time. Gave Dilaudid 2mg SIVP for discomfort. Will continue to monitor.
[2016-11-11] MEDS: oxycODONE/ACETAMINOPHEN 10MG-325 MG (PERCOCET-10) TABLET PO PRN ×2 (05:26→12:02)
[2016-11-11] MEDS: INSULIN LISPRO 1 UNIT/0.01 ML (HUMALOG) DOSE SC SCH ×4 (07:30→20:36)
[2016-11-11 08:08] VITALS: BP 132/66
[2016-11-11] MEDS: RIVAROXABAN 10 MG (XARELTO) TABLET PO SCH (09:20)
[2016-11-11] MEDS: HYDROCHLOROTHIAZIDE 12.5 MG (HCTZ) TABLET PO SCH (09:20)
[2016-11-11] MEDS: GABAPENTIN 300 MG (NEURONTIN) CAP PO SCH ×3 (09:21→18:28)
[2016-11-11] MEDS: GLIMEPIRIDE 2 MG (AMARYL) TAB PO SCH (09:21)
[2016-11-11] MEDS: metFORMIN 1000 MG (GLUCOPHAGE) TABLET PO SCH ×2 (09:21→18:28)
[2016-11-11] MEDS: DOCUSATE SODIUM 100 MG (COLACE) CAP PO SCH ×2 (09:21→20:36)
[2016-11-11] MEDS: lisINopril 20 MG (PRINIVIL) TABLET PO SCH (09:21)
[2016-11-11] MEDS: CARVEDILOL 6.25 MG (COREG) TAB PO SCH ×2 (09:21→18:27)
[2016-11-11] MEDS: ASPIRIN 81 MG CHEW (LOW-DOSE) PO SCH (09:21)
--- NOTE | 2016-11-11 12:15 | OT Daily Note Inpatient (E) ---
OT Daily Treatment Service Date/Time 11/11/16, 12:07 Primary Diagnosis: (1) Total knee replacement status ICD Code: Z96.659 Treatment Diagnosis: (1) Weakness ICD Code: R53.1 Onset Date: 11/04/16 Start of Care Date: November 10, 2016 Precaution/Isolation: Standard Precautions Fall Level: Low Risk 25-50 Resuscitation Status: Full Code Current Activity: Agrees to participate, Agitated, In bed Pt states he is in pain/knee and lateral thigh, nausea. Pain Level: 10 Oxygen Needed: Room air O2 liters/minute: 0 Current Function Assessment Cognition Attention: Intact Visual/Perceptual Skills Glassess: Yes Hand Dominance Hand Dominance: Right Neurological Balance: Limited dynamic balance, Physical help to sit, Stands with device, Stands with assistance (CGA) Endurance Activity Endurance: Deep breathing, Instructions provided, Requires freq rest breaks Bed Mobility/Transfers Bed Mobility: Minimum assist (LE), Of 1 Supine from Sit: Minimum assist Sit to Stand: Minimum assist (OT co tx with PT for dynamic standing and weight shifting for 19 minutes to increase functional transfers. Pt required CGA for standing, v/c for reaching for chair/pushing off. Stood for 5 min. v/c for breathing for relaxation.), 2 persons, Verbal clues Chair Transfer: CGA, Of 2 persons, Verbal clues Sitting Balance: CGA Treatments Strengthening Exercise Upper Extremity Strength Exerc : Upper Extremity: Bilateral Exercise Type: AROM Repetitions: 10 X 1 Amount of Resistance: 2 lbs (2# dowel used for B UE strengthening in lower planes due to rotator cuff tear on R UE. Pt required frequent rest breaks due to pain.) Education/Assessment Education Provided: Other (Relaxation techniques to decrease pain. Pt was not receptive of this type of therapy) Education Evalution: Limited understanding, Unable to comprehend, Unable to return demo Readiness to Learn: Poor Problems Impacting Treatment: Pain Rehabilitation Potential: Good POC Plan of Care Problems Identified: Activity Tolerance, ADLs, Balance, Lt UE Strength, Pain, Rt UE Strength, Sensation Plan: Evaluation-OT, ADL/Self Care Management, Therapy Exercises, Therapy Activities Frequency of OT: Five times weekly Duration of OT: 3 weeks Therapy to Include: ADL training, Manual therapy, Pt/family education, Therapeutic activities, UE coord. training, UE strengthing Discharge Recommendations: Caregiver support Pt. Aware of Dx and Prognosis: Yes Pt. Aware of Risk & Benefit: Yes Goals: Discussed with patient Short Term Goals STG Time Frame: 5 Days Will Dress Upper Extremity: With Setup/SBA Will Dress Lower Extremity: With Min Assistance Will do Bathing: With Setup/SBA Will do Toileting: With Min Assistance Will Perform Funct Transfer: With Setup/SBA STG #1 Pt will participate in 20 min of ther-ex with four or less rest breaks. STG #2 Pt will complete grooming tasks standing at sink with SBA. Halfway Goals LTG Time Frame: 3 Weeks Will Dress Upper Extremity: Independently Will Dress Lower Extremity: Independently Will do Tub/Shower Transfer: Independently Will Bathe Self: Independently Will do Toilet Transfers: Independently Will do Toilieting: Independently Will Perform Kitchen Mobility: Independently LTG # 1 Pt will participate in 5 minute functional standing task with demonstration of good safety awareness and modified independence. CPT/G Codes Time In: 0818 Time Out: 1145 Total Minutes: 29 CPT Codes: 84359 Exercise Ther (10), 36335 ADL EA (17) Zakiya Toledo November 11, 2016 12:15
[2016-11-11] MEDS: ONDANSETRON 4 MG (ZOFRAN) ORAL DISSOLVE TAB PO PRN (14:44)
--- NOTE | 2016-11-11 15:03 | PT Daily Note Inpatient (E) ---
PT Daily Treatment Service Date/Time 11/11/16, 14:57 Medical Diagnosis: (1) Total knee replacement status ICD Code: Z96.659 Physical Therapy: Precaution/Isolation: Standard Precautions Resuscitation Status: Full Code Fall Level: Low Risk 25-50 Subjective Pt states he wasn't able to eat much for lunch and is nauseated. Oxygen Delivery: Room air O2 liters/minute: 0 Treatments Comment Vasopneumatic device x 20 minutes to left knee at max cold and low compression. Education/Plan Education Patient educated to move his leg while he sits in the recliner to help desensitize his knee to decrease hypersensitivity. Coding Time In: 2:10 Time Out: 2:30 Total Minutes: 20 Charges: Other (vasopneumatic device - [id number]) Alex Amaya GARMENT LINER November 11, 2016 15:03
--- NOTE | 2016-11-11 15:52 | NUR ---
Pt. continues to report nausea, despite taking Zofran PO. Order received from Dr. Mckenna for Phenergan 12.5mg IV Q6H PRN.
[2016-11-11] MEDS ORDERED: PROMETHAZINE HCL INJ 12.5 MG in SODIUM CHLORIDE 25 ML IV PRN (15:55)
[2016-11-11] MEDS: NS FLUSH 3 ML DAILY IV SCH ×2 (16:14→21:05)
--- NOTE | 2016-11-11 17:12 | PT Daily Note Inpatient (E) ---
PT Daily Treatment Service Date/Time 11/11/16, 17:10 Medical Diagnosis: (1) Total knee replacement status ICD Code: Z96.659 Physical Therapy: Precaution/Isolation: Standard Precautions Resuscitation Status: Full Code Fall Level: Low Risk 25-50 Subjective Patient c/o nausea but did not vomit. The patient notes pain greater than 10/ 10. Reports walking during the night and having increased pain since then. Patient had IV pain medication approximately 1 hour prior to treat and was given Percoset closer to the end of treatment. Max encouragement required to complete therapy tasks but decrease verbal cues required for deep breathing this date. Pain Level: 10 (Right knee joint) Pain Location/Comment Decreased swelling in right knee noted, normal post operative bruising. Oxygen Delivery: Room air O2 liters/minute: 0 Treatments Sit, Stand, Supine: Sitting Extremity: Left Lower Extremity Assistance: AAROM, AROM Repetition: 1 x 10, 2 x 10 Comment Knee flexion/extension with foot on towel, LAQ, passive ankle dorsiflexion stretching to left. Comment Co treatment with ORO this date for 19 minutes to work on standing tolerance, weight shifting and gait training. Patient stands over 5 minutes working with verbal cues to improve weight shifting onto LLE, completed reaching outside base support in normal base of support then semi tandem stance. Transfers Sit-Stand from bed: Minimal Assistance Stand-Sit: Minimal Assistance (to and from bed, chair, and toilet. ) Gait Distance Walked: 8 feet x 2 with FWW Education/Plan Education Discussed with patient's and nursing staff the importance of patient moving his lower extremities throughout the day and continuing to ambulate throughout the day. Discussed goals for discharge as patient is currently unable to tolerate weight bearing onto LLE in order to safely complete stairs to get into/out of home at this time. Assessment Patient continues to demonstrate anxiety related to his surgery, increasing his right knee pain and muscle guarding. He was able to tolerate increased ROM exercises and weight shifting this date. He continues to report 10/10 pain and nausea throughout. Safety Awareness: Intact Response to Treatment: Improving Plan Continue to progress ROM, strengthening, and functional activities. Patient would benefit from continued use of vasopneumatic device to address pain and edema. Patient will be seen: Daily Thursday-Thursday Discharge Recommendations: Caregiver support Coding Time In: 1124 Time Out: 1223 Total Minutes: 59 Charges: 17774 Exercise Therp 15 m, [address] PT November 11, 2016 17:12
[2016-11-11 20:06] VITALS: BP 114/72
[2016-11-11] MEDS: ATORVASTATIN 40 MG (LIPITOR) TABLET PO SCH (20:36)
[2016-11-11] MEDS: LIDOCAINE (LIDODERM) 5% PATCH TOP SCH (20:37)
[2016-11-12] MEDS: NS FLUSH 3 ML DAILY IV SCH ×2 (02:08→04:38)
[2016-11-12] MEDS: HYDROmorphone 2 MG/ML (DILAUDID) 1 ML SYRINGE IV PRN ×2 (02:08→04:38)
--- NOTE | 2016-11-12 04:29 | NUR ---
1954-Pt is sitting up in recliner watching tv and visiting with . Reports he does have pain to left knee but does not want to take any pain medication until after his goes home. SL to RFA is patent, no redness, swelling, or s/s of infection noted at this time. Call light is in reach, will continue to monitor. 2104-This RN assists pt to bed, rates pain 10/10, request IV pain medication. This RN gave Dilaudid 2mg SIVP for discomfort. Will continue to monitor. 207-Pt is up to restroom and request to walk in [place], Pt walks 100ft, assisted pt back to bed, rates pain 10/10, gave Dilaudid 2mg SIVP for discomfort. Will continue to monitor. 399-Pt is resting in bed asleep, call light is in reach, will continue to monitor. Addendum: 11/12/16 at 0505 by Sherly Boykin RN 0938-Pt is up to restroom, complains of pain to left knee, gave Dilaudid 2mg SIVP for discomfort at this time. Will continue to monitor.
[2016-11-12] MEDS: INSULIN LISPRO 1 UNIT/0.01 ML (HUMALOG) DOSE SC SCH ×4 (07:30→21:00)
[2016-11-12 07:47] VITALS: BP 127/62
--- NOTE | 2016-11-12 08:15 | NUR ---
Report received from Heidy LIVINGSTON and care assumed. Pt is awake and alert. Pt ate small breakfast.
[2016-11-12] MEDS: GABAPENTIN 300 MG (NEURONTIN) CAP PO SCH (08:54)
[2016-11-12] MEDS: metFORMIN 1000 MG (GLUCOPHAGE) TABLET PO SCH ×2 (08:54→17:31)
[2016-11-12] MEDS: HYDROCHLOROTHIAZIDE 12.5 MG (HCTZ) TABLET PO SCH (08:54)
[2016-11-12] MEDS: CARVEDILOL 6.25 MG (COREG) TAB PO SCH ×2 (08:54→17:31)
[2016-11-12] MEDS: ASPIRIN 81 MG CHEW (LOW-DOSE) PO SCH (08:55)
[2016-11-12] MEDS: lisINopril 20 MG (PRINIVIL) TABLET PO SCH (08:55)
--- NOTE | 2016-11-12 08:55 | NUR ---
Pt c/o pain in L leg and knee. Percocet 1 tab given for pain. Pt does not understand why he is not getting better faster. Thinks he should be doing as well as the pt who had surgery the same day he did. Tried to explain the pt that everyone is different in the recovery process. And that everyone's idea of pain is different.
[2016-11-12] MEDS: DOCUSATE SODIUM 100 MG (COLACE) CAP PO SCH ×2 (08:56→20:14)
[2016-11-12] MEDS: RIVAROXABAN 10 MG (XARELTO) TABLET PO SCH (08:56)
[2016-11-12] MEDS: GLIMEPIRIDE 2 MG (AMARYL) TAB PO SCH (08:56)
[2016-11-12] MEDS: oxycODONE/ACETAMINOPHEN 10MG-325 MG (PERCOCET-10) TABLET PO PRN ×2 (08:57→20:16)
[2016-11-12] MEDS: PATCH REMOVAL TOP SCH (09:00)
--- NOTE | 2016-11-12 10:00 | NUR ---
PT here to work with pt, pt tolerated it good until the last few minutes and then he became nauseated.
[2016-11-12] MEDS: ONDANSETRON 4 MG (ZOFRAN) ORAL DISSOLVE TAB PO PRN (11:18)
--- NOTE | 2016-11-12 11:35 | NUR ---
Zofran 4 mg po given for nausea. Pt continues to c/o pain but refuses to take meds. Ice pack applied to knee. Dr. Mckenna present and new orders received. Pt is to have a ultra sound of the L leg due to increased swelling in the left knee and pain. Looking for possible DVT. New dressing applied to L knee. Incision is dry and clean, no drainage noted. Slight redness noted along incision line.
--- NOTE | 2016-11-12 11:43 | Progress Note (E) ---
Progress Note SUBJECTIVE Somnolent through the day yesterday. Had gotten promethazine for nausea which likely contributed. Nausea probably from narcotics. Is able to participate more with therapy now. Rates pain 10/10 though with therapy yesterday. On exam, more awake. Interactive. Still feeling pain, primarily in upper thigh. More noticeable today is that the left leg (upper and lower) is more swollen compared to the right. Discussed possibility of complications including hematoma and DVT. Checking venous duplex. Checking for signs of compartment syndrome, infection. Increasing gabapentin. OBJECTIVE Vital Signs Date Time Temp Pulse Resp B/P Pulse Ox O2 Delivery O2 Flow Rate FiO2 11/12/16 07:47 97.0 85 16 127/62 98 Room air I & O 11/11/16 11/12/16 Cumulative From/Thru 19:00 07:00 11/08/16 11:06 - 11/12/16 06:09 Intake Total 737 ml 2000 ml 8987 ml Output Total 200 ml 200 ml 7000 ml Balance 537 ml 1800 ml 1987 ml GEN: Interactive, oriented. Uncomfortable with knee movement still. HEENT: EOMI, clear sclerae, moist oral mucosa. CV: Regular without murmur. PULM: CTA B with no R/R/W. ABD: Soft, NT/ND with normal bowel sounds. EXTR: Edema/swelling of left leg > right, much more pronounced, extending from upper thigh to ankle. INTEG: No rash. Resolving bruising around site of knee surgery. Incision C/D/I. MS: Left knee incision with some dried serosanguineous secretions. Steri-strops intact. No fresh drainage on gauze bandage. 3+ knee edema. Some warmth but no overlying erythema. NEURO: No focal motor neuro deficit. Lab-Past 14 Days, 35 Results 11/09/16 05:30: Anion Gap 14.8, BUN/Creatinine Ratio 27H, Basophils # (Auto) 0.0, Basophils (%) (Auto) 0, Blood Urea Nitrogen 29H, Calcium Level 9.2, Carbon Dioxide Level 28, Chloride Level 102, Creatinine 1.08, Eosinophils # (Auto) 0.2, Eosinophils (%) ( Auto) 2, Estimat Glomerular Filtration Rate 84.4, Estimated GFR (Non- 69.7, Glucose Level 87#, Hematocrit 29.50L, Hemoglobin 10.0L, Lymphocytes # (Auto) 2.1, Lymphocytes (%) (Auto) 24, Mean Corpuscular Hemoglobin 30.5, Mean Corpuscular Hemoglobin Concent 33.9, Mean Corpuscular Volume 90, Mean Platelet Volume 8.8, Monocytes # (Auto) 1.1, Monocytes (%) (Auto ) 12H, Neutrophils # (Auto) 5.4, Neutrophils (%) (Auto) 61, Platelet Count 206, Potassium Level 4.2, Red Blood Count 3.28L, Red Cell Distribution Width 13.0, Sodium Level 141, White Blood Count 8.84 ASSESSMENT Thomas Skaggs is a 61 year old male admitted to residential 11/08 as a transfer from [facility] where had left total knee replacement. He had swelling and increased pain which made rehab challenging. He has several chronic problems. PLAN * Left knee pain, Left thigh pain, S/P Left knee replacement: Only modest improvement with escalation of pain medication regimen. Streamlined regimen with increased oxycodone/acetaminophen and increased hydromorphone. Stopped morphine. Added lidoderm. Increased gabapentin 11/12. Monitor closely for signs of surgical complications. (Noted labs 11/09 were reassuring.) Screen for signs of DVT, infection, compartment syndrome. If complication discovered or if pain and function not improving, discuss with orthopedic surgeon (Dr. Packer.) * Left Leg Swelling: Likely related to knee surgery but check venous duplex to screen for DVT, hematoma. Check CPK. * Nausea: Likely adverse effect of narcotic medication. Ondansetron, promethazine. * Physical Deconditioning, OA: PT/OT eval and treat. * F/E/N: Diabetic diet. Peripheral IV. I&O to monitor BMs. * Prophylaxis: Rivaroxaban * Code Status: Full * Dispo: correction for above issues, expecting 2-3 week stay. Additional workup for possible complications pending. CHRONIC ISSUES * CAD: Aspirin * HLD: Atorvastatin * HTN: Carvedilol, HCTZ, Lisinopril * Constipation: Bowel regimen * Chronic Pain, Diabetic Peripheral Neuropathy: Gabapentin * Diabetes Mellitus Type II: Glimepiride, metformin, sliding scale. SANDRA QUARLES MD November 12, 2016 11:24
--- NOTE | 2016-11-12 12:00 | NUR ---
Accu check results 140mg/dl, no SSI given.
[2016-11-12 12:31] LABS: BASOPHILS % (AUTO) 0 % (0-2); EOSINOPHILS # (AUTO) 0.2 10^3uL; EOSINOPHILS % (AUTO) 2 % (0-4); LYMPHOCYTES # (AUTO) 1.3 X10^3; MEAN CORPUSCULAR HEMOGLOBIN 30.1 PG (26.0-34.0); MEAN CORPUSCULAR HGB CONC 33.8 g/dL (31.0-37.0); MEAN CORPUSCULAR VOLUME 89 FL (80-100); MEAN PLATELET VOLUME 8.3 FL (6.0-9.5); MONOCYTES # (AUTO) 0.9 X10^3; MONOCYTES % (AUTO) 9 % (3-11); NEUTROPHILS # (AUTO) 7.9 X10^3; NEUTROPHILS % (AUTO) 76 % (51-67); PLATELET COUNT 265 10^3uL (150-450); WHITE BLOOD COUNT 10.45 10^3uL (4.0-11.0)
[2016-11-12] MEDS: GABAPENTIN 600 MG (NEURONTIN) TAB PO SCH ×2 (12:43→17:31)
[2016-11-12 12:53] LABS: ALBUMIN 3.4 g/dL (3.4-5.0); ANION GAP 14.4 MEQ/L (3-15)
--- NOTE | 2016-11-12 13:10 | NUR ---
Neurontin 600 mg po given as ordered. Pt was able to eat ice cream but states nothing taste good. Continues to have pain but refuses meds. Pt stretches out in recliner and blanket over pt, pt is tired and resting.
--- NOTE | 2016-11-12 15:00 | PT Daily Note Inpatient (E) ---
PT Daily Treatment Service Date/Time 11/12/16, 14:48 Medical Diagnosis: (1) Total knee replacement status ICD Code: Z96.659 Physical Therapy: Precaution/Isolation: Standard Precautions Resuscitation Status: Full Code Fall Level: Low Risk 25-50 Subjective The patient was resting in bed but awake. PT presents with PT exceptional student education teacher and high school student observing and patient agreeable to them being present during treatment. Patient denies nausea at beginning of treatment, c/o right knee joint pain. Patient's knee appears less swollen that yesterday with pocket of edema at lateral knee joint. Pain Location/Comment The patient did not specifically report pain level. Oxygen Delivery: Room air O2 liters/minute: 0 Treatments Sit, Stand, Supine: Supine Extremity: Left Upper Extremity, Left Lower Extremity Assistance: AAROM, PROM, Stretching Repetition: 2 x 10 Comment Ankle PF/DF passive ROM on left, heel slides, quad sets, SAQ Transfers Sit-Supine: Not Assessed/NA Sitting Edge of Bed: Supervision or setup Supine-Sit: Minimal Assistance Sit-Stand from bed: Minimal Assistance Stand-Sit: Minimal Assistance Gait Ambulation: Minimal Assistance Distance Walked: 1x6, 1x8 with FWW to and from bathroom Patient noting increased pain in LLE with weight bearing ambulating to bathroom. and began to become more agitated with ambulation. He refused to ambulate any further this date. Weight Bearing Status: WBAT left Assistive Device: FWW Education/Plan Education Encouraged patient to ambulate this afternoon. Continued to encourage deep breathing. . Assessment Patient had nausea at end of treatment and c/o stomach pain. Nurse was notified of this. Patient's LLE elevated on pillow call light in reach. Safety Awareness: Intact Response to Treatment: No Change Plan Patient continues to be limited by mm guarding and pain in right knee. We will continue to work to improve knee AROM. Patient will be seen: Daily Thursday-Thursday Discharge Recommendations: Caregiver support Coding Time In: 1023 Time Out: 1111 Total Minutes: 48 Charges: 14116 Exercise Therp [address] PT November 12, 2016 15:00
--- NOTE | 2016-11-12 15:28 | Diagnostic Imaging Report ---
INDICATION: Left leg pain. Recent knee replacement. TECHNIQUE: Grayscale, pulsed and color Doppler imaging of the left lower extremity. COMPARISONS: 11/07/2016 FINDINGS: The left common femoral, femoral and popliteal veins are patent without evidence of DVT. Visualized proximal aspects of the greater saphenous, deep femoral, posterior tibial and peroneal veins are also patent. All of the evaluated deep venous structures demonstrate normal compressibility and waveform augmentation where applicable. There is a small fluid collection in the soft tissues along the posterior and medial aspect of the knee. IMPRESSION: 1. Stable examination from 5 days prior. No left lower extremity deep venous thrombosis (DVT). 2. Small minimally complicated fluid-like collection along the medial aspect of the knee at the level of the incision likely represents postoperative seroma. Dictated by: Dictated on workstation # [id number]
--- NOTE | 2016-11-12 17:46 | OT Daily Note Inpatient (E) ---
OT Daily Treatment Service Date/Time 11/12/16, 17:39 Primary Diagnosis: (1) Total knee replacement status ICD Code: Z96.659 Treatment Diagnosis: (1) Weakness ICD Code: R53.1 Onset Date: 11/04/16 Start of Care Date: November 10, 2016 Precaution/Isolation: Standard Precautions Fall Level: Low Risk 25-50 Resuscitation Status: Full Code Current Activity: Agitated, In bed, Resistant to treatment General Informantion Attempted to see x 3 times this date.Consulted with nursing and she asked to put on hold until 2:30 pm due to high pain. Pt will change meds to perocet to decrease nausea. Ultra sound was negative for blood clot. Pt has high anxiety level and resistant to relaxation exercises and generally irritable. Pain Level: 10 Pain Location/Comment knee 20 /10 pain Oxygen Needed: Room air O2 liters/minute: 0 Current Function Assessment Cognition Attention: Intact Visual/Perceptual Skills Glassess: Yes Hand Dominance Hand Dominance: Right Treatments Strengthening Exercise Upper Extremity Strength Exerc : Upper Extremity: Bilateral Exercise Type: AROM (on L UE isometric on right due to rotator cuff tear) Repetitions: Other (20x1) Amount of Resistance: Red (PRE for L UE to increase strength for transfers) Education/Assessment Education Provided: Other (Relaxation techniques to decrease pain. Pt was not receptive of this type of therapy) Education Evalution: Limited understanding, Unable to comprehend, Unable to return demo Readiness to Learn: Poor Treatment Tolerance: Bryson trmnt w/ complaints Problems Impacting Treatment: Pain Rehabilitation Potential: Good Irritability, and anxiety are barriers to tx POC Plan of Care Problems Identified: Activity Tolerance, ADLs, Balance, Lt UE Strength, Pain, Rt UE Strength, Sensation Plan: Evaluation-OT, ADL/Self Care Management, Therapy Exercises, Therapy Activities Frequency of OT: Five times weekly Duration of OT: 3 weeks Therapy to Include: ADL training, Manual therapy, Pt/family education, Therapeutic activities, UE coord. training, UE strengthing Discharge Recommendations: Caregiver support Pt. Aware of Dx and Prognosis: Yes Pt. Aware of Risk & Benefit: Yes Goals: Discussed with patient Short Term Goals STG Time Frame: 5 Days Will Dress Upper Extremity: With Setup/SBA Will Dress Lower Extremity: With Min Assistance Will do Bathing: With Setup/SBA Will do Toileting: With Min Assistance Will Perform Funct Transfer: With Setup/SBA STG #1 Pt will participate in 20 min of ther-ex with four or less rest breaks. STG #2 Pt will complete grooming tasks standing at sink with SBA. Analytical Tech Goals LTG Time Frame: 3 Weeks Will Dress Upper Extremity: Independently Will Dress Lower Extremity: Independently Will do Tub/Shower Transfer: Independently Will Bathe Self: Independently Will do Toilet Transfers: Independently Will do Toilieting: Independently Will Perform Kitchen Mobility: Independently LTG # 1 Pt will participate in 5 minute functional standing task with demonstration of good safety awareness and modified independence. CPT/G Codes Time In: 1455 Time Out: 1510 Total Minutes: 15 CPT Codes: 83492 Therp Activity Zakiya Toledo November 12, 2016 17:45
[2016-11-12] MEDS: ATORVASTATIN 40 MG (LIPITOR) TABLET PO SCH (20:14)
[2016-11-12 20:15] VITALS: BP 150/68
--- NOTE | 2016-11-12 20:16 | NUR ---
Percocet for knee pain. Also c/o stomache upset, but denies need for any other medication and wants to wait.
[2016-11-12] MEDS: LIDOCAINE (LIDODERM) 5% PATCH TOP SCH (20:27)
[2016-11-13] MEDS: HYDROmorphone 2 MG/ML (DILAUDID) 1 ML SYRINGE IV PRN (00:03)
[2016-11-13] MEDS: NS FLUSH 10 ML PRN IV (00:03)
--- NOTE | 2016-11-13 00:03 | NUR ---
Dilaudid for pain 10/10 in right knee. Says it started hurting when he moved around to use the urinal.
[2016-11-13] MEDS: oxycODONE/ACETAMINOPHEN 10MG-325 MG (PERCOCET-10) TABLET PO PRN ×3 (02:30→18:06)
--- NOTE | 2016-11-13 02:30 | NUR ---
Percocet for knee pain rated 10/10 described as constant and nagging.
[2016-11-13] MEDS: INSULIN LISPRO 1 UNIT/0.01 ML (HUMALOG) DOSE SC SCH ×4 (07:30→21:00)
--- NOTE | 2016-11-13 07:35 | NUR ---
Has had quite a bit of pain through night and has been unable to get comfortable. Complains of the way the pain meds make him feel (i.e. nausea and fuzzy head) and complains about the pain. States it hurts every time he moves his knee. Has been given both percocet and dilauded through the night which has allowed him to rest some. Refused nausea medication.
[2016-11-13 08:00] VITALS: BP 125/75
[2016-11-13] MEDS: CARVEDILOL 6.25 MG (COREG) TAB PO SCH ×2 (08:55→18:05)
[2016-11-13] MEDS: RIVAROXABAN 10 MG (XARELTO) TABLET PO SCH (08:55)
[2016-11-13] MEDS: ASPIRIN 81 MG CHEW (LOW-DOSE) PO SCH (08:55)
[2016-11-13] MEDS: HYDROCHLOROTHIAZIDE 12.5 MG (HCTZ) TABLET PO SCH (08:55)
[2016-11-13] MEDS: GLIMEPIRIDE 2 MG (AMARYL) TAB PO SCH (08:56)
[2016-11-13] MEDS: DOCUSATE SODIUM 100 MG (COLACE) CAP PO SCH ×2 (08:56→21:20)
[2016-11-13] MEDS: metFORMIN 1000 MG (GLUCOPHAGE) TABLET PO SCH ×2 (08:56→18:05)
[2016-11-13] MEDS: lisINopril 20 MG (PRINIVIL) TABLET PO SCH (08:56)
[2016-11-13] MEDS: GABAPENTIN 600 MG (NEURONTIN) TAB PO SCH ×3 (08:56→18:05)
--- NOTE | 2016-11-13 09:01 | NUR ---
PRN Percocet given at this time for c/o L knee pain. Denies other needs.
[2016-11-13] MEDS: PATCH REMOVAL TOP SCH (09:04)
[2016-11-13] MEDS: NS FLUSH 3 ML DAILY IV SCH (09:05)
--- NOTE | 2016-11-13 09:29 | NUR ---
Nutrition Follow Up: Patient is eating 100% at most meals, though he is refusing some meals with associated nausea. Pt. unable to fully participate in therapies due to significant knee pain. Weight today: N/A since admission Labs: glucose 89-140 1. Blood sugars have been well controlled since admission. Will continue to provide medium diabetic diet as ordered and tailor to patients preferences as much as possible. Emphasize protein for healing; recommend protein-based snack BID between meals.
--- NOTE | 2016-11-13 11:10 | Progress Note (E) ---
Progress Note Discussed with Dr. Packer by phone regarding currently findings, plan of care. He voiced appreciation for updates. No further testing recommended at this time. Discussed possibility that this pain may be more neuropathic or even potentially due to back issues. Dr. Packer said the knee and femur were x- rayed before discharge from [place] so occult fracture isn't likely. Noted that patient was actually able to ambulate today and he's starting to show some improvement. Describes some spasm pain in thigh so offered trial of cyclobenzaprine. Updated and patient on plan of care. Continue efforts at rehab, pain control. SANDRA QUARLES MD November 13, 2016 11:10
--- NOTE | 2016-11-13 11:58 | OT Daily Note Inpatient (E) ---
OT Daily Treatment Service Date/Time 11/13/16, 11:48 Primary Diagnosis: (1) Total knee replacement status ICD Code: Z96.659 Treatment Diagnosis: (1) Weakness ICD Code: R53.1 Onset Date: 11/04/16 Start of Care Date: November 10, 2016 Precaution/Isolation: Standard Precautions Fall Level: Low Risk 25-50 Resuscitation Status: Full Code Current Activity: Agrees to participate, Up in chair Pt states today is a better day and was able to get out of bed and use the toilet. Pain Level: 10 Pain Location/Comment knee Oxygen Needed: Room air O2 liters/minute: 0 Current Function Assessment Cognition Attention: Intact Visual/Perceptual Skills Glassess: Yes Hand Dominance Hand Dominance: Right Neurological Balance: Limited dynamic balance, Stands with device, Stands with assistance ( CGA) Endurance Activity Endurance: Requires freq rest breaks Pt engaged in balance and weigh shift training for L LE. PT stood for 9 minutes with UE reaching. Pt had one LOB. CO tx with PT for 22 minutes for safety Bed Mobility/Transfers Sit to Stand: CGA Chair Transfer: CGA, With assistive device Dressing Comment Pt able to don R shoe but needed assistance to tie. Max A for don/doffing L shoe and brace. Treatments Modality Modality Parameters Performed: Manual/soft tissue work (Manual lymphatic massage with protocol for no node involvement to decrease edema in L LE) Education/Assessment Education Provided: Other (Relaxation techniques to decrease pain. Pt was not receptive of this type of therapy) Education Evalution: Limited understanding, Unable to comprehend, Unable to return demo Readiness to Learn: Poor Barriers to Learning: Attitude toward rehab Treatment Tolerance: Bryson trmnt w/ complaints Problems Impacting Treatment: Balance, Pain Rehabilitation Potential: Good Pt was improved with pain and tolerance for therapy this date and will benefit from skilled OT to increase ADLS function for return to home. POC Plan of Care Problems Identified: Activity Tolerance, ADLs, Balance, Lt UE Strength, Pain, Rt UE Strength, Sensation Plan: Evaluation-OT, ADL/Self Care Management, Therapy Exercises, Therapy Activities Frequency of OT: Five times weekly Duration of OT: 3 weeks Therapy to Include: ADL training, Manual therapy, Pt/family education, Therapeutic activities, UE coord. training, UE strengthing Discharge Recommendations: Caregiver support Pt. Aware of Dx and Prognosis: Yes Pt. Aware of Risk & Benefit: Yes Goals: Discussed with patient Short Term Goals STG Time Frame: 5 Days Will Dress Upper Extremity: With Setup/SBA Will Dress Lower Extremity: With Min Assistance Will do Bathing: With Setup/SBA Will do Toileting: With Min Assistance Will Perform Funct Transfer: With Setup/SBA STG #1 Pt will participate in 20 min of ther-ex with four or less rest breaks. STG #2 Pt will complete grooming tasks standing at sink with SBA. Electrical Engineer Mep Goals LTG Time Frame: 3 Weeks Will Dress Upper Extremity: Independently Will Dress Lower Extremity: Independently Will do Tub/Shower Transfer: Independently Will Bathe Self: Independently Will do Toilet Transfers: Independently Will do Toilieting: Independently Will Perform Kitchen Mobility: Independently LTG # 1 Pt will participate in 5 minute functional standing task with demonstration of good safety awareness and modified independence. CPT/G Codes Time In: 1007 Time Out: 1044 Total Minutes: 36 CPT Codes: 92622 Manual Ther Tech (14), 47456 Therp Activity (22) Zakiya Toledo November 13, 2016 11:58
[2016-11-13] MEDS: CYCLOBENZAPRINE 10 MG (FLEXERIL) TAB PO PRN (12:43)
--- NOTE | 2016-11-13 12:43 | NUR ---
PRN Flexeril given at this time for c/o L knee pain. Will continue to monitor.
--- NOTE | 2016-11-13 15:12 | NUR ---
MULTIDISCIPLINARY MTG/DR. QUARLES: Pt. admitted to [facility] on 11/08 after having a left total knee replacement. Pt. has been struggling with pain but workup has all been negative. Pt. has progressed today after increasing his gabapentin and altering his medication regimen for pain. Pt. will continue to work with therapy until he is able to function at home. Pt. did walk half a lap with PT/OT today and is making slow progress. Pt. may possibly be discharged next week. No discharge needs identified at this time.
--- NOTE | 2016-11-13 15:38 | PT Daily Note Inpatient (E) ---
PT Daily Treatment Service Date/Time 11/13/16, 15:26 Medical Diagnosis: (1) Total knee replacement status ICD Code: Z96.659 Physical Therapy: Precaution/Isolation: Standard Precautions Resuscitation Status: Full Code Fall Level: Low Risk 25-50 Barriers Limiting Function: Activity Tolerance, Pain Subjective Patient seen for a split treatment this date for a total of 74 minutes today. Patient was seen in AM with ORO to work on reaching outside LAINEY and standing tolerance. Patient noted having improved pain in left knee this date. Doppler yesterday was negative for DVT. He has ambulated to and from bathroom this AM but has not ambulated otherwise. Oxygen Delivery: Room air O2 liters/minute: 0 Treatments Sit, Stand, Supine: Sitting, Long Sitting Extremity: Left Lower Extremity Assistance: AAROM, AROM Comment PT applied kinesiotape to right medial knee joint to promoted improved lymphatic drainage. Repetition: 2 x 10 Exercise: AP (AAROM ), QS, Hip Flexion Comment Knee flexion/extension. Patient's left knee extension lacking 5 degres from straight, knee flexion AROM 51 degrees. Static Balance: NBOS (Reaching outside LAINEY then semi tandem stance reaching outside LAINEY with PT providing guarding and verbal cues for weight shifiting. ) Transfers Sit-Stand from bed: Contact Guard Assist Stand-Sit: Contact Guard Assist Gait Ambulation: Contact Guard Assist Distance Walked: 160 feet with PT encouraging increased knee flexion to improve foot clearan Gait Training: Limitations: Fatigue, Pain Education/Plan Education Developed plan for patient to improving ROM throughout the day and increase ambulation as well. PT applied vaso with moderate compression and moderate cold to patient's left knee this afternoon x 15 minutes, provided patient with nunez. Patient reported it didn't feel as good this PM, plan to decrease compression to low next time. Assessment Patient had improved tolerance this date with decreased anxiety and no c/o nausea. Left knee AROM continues to be significant limited. Safety Awareness: Intact Response to Treatment: Improving Plan Progress ROM, strengthening ,and gait as patient tolerates. Patient will be seen: Daily Thursday-Thursday Discharge Recommendations: Caregiver support Coding Time In: 1013 Time Out: 1127 Total Minutes: 74 Charges: 74233 Comp Pump Apply, 61673 Exercise Therp 15 m, 05591 Neurmus Exer 15 min, 28838 Gait Training [address] PT November 13, 2016 15:37
--- NOTE | 2016-11-13 18:06 | NUR ---
PRN Percocet given at this time for c/o mild L knee pain. Pt states Flexeril made him quite sleepy and loopy. Encouraged pt to take it at bedtime to aide in sleep as well. Denies other needs. Pt is ambulating better, states he feels like he's turned a corner and is finally improving. Drsg removed, Bl[place]ine states it can be left open to air. Pt denies needs. in room.
[2016-11-13 19:58] VITALS: BP 115/58
[2016-11-13] MEDS: ATORVASTATIN 40 MG (LIPITOR) TABLET PO SCH (21:20)
[2016-11-14] MEDS: CYCLOBENZAPRINE 10 MG (FLEXERIL) TAB PO PRN ×3 (01:22→20:05)
--- NOTE | 2016-11-14 01:36 | NUR ---
Flexeril for knee pain rated 10/10. Patient had just been up waling with staff for a brief time in the [place].
[2016-11-14] MEDS: oxycODONE/ACETAMINOPHEN 10MG-325 MG (PERCOCET-10) TABLET PO PRN ×4 (03:51→20:06)
[2016-11-14] MEDS: INSULIN LISPRO 1 UNIT/0.01 ML (HUMALOG) DOSE SC SCH ×4 (06:14→21:00)
--- NOTE | 2016-11-14 06:34 | NUR ---
c/o continued pain. repostioned on right side Addendum: 11/14/16 at 0636 by Phoebe Coburn RN above entry should be timed for 0630
--- NOTE | 2016-11-14 06:35 | NUR ---
continues resting and has been without further complaint
[2016-11-14 07:41] VITALS: BP 155/57
[2016-11-14 07:44] VITALS: BP 152/75
[2016-11-14] MEDS: metFORMIN 1000 MG (GLUCOPHAGE) TABLET PO SCH ×2 (08:39→17:46)
[2016-11-14] MEDS: HYDROCHLOROTHIAZIDE 12.5 MG (HCTZ) TABLET PO SCH (08:39)
[2016-11-14] MEDS: CARVEDILOL 6.25 MG (COREG) TAB PO SCH ×2 (08:39→17:46)
[2016-11-14] MEDS: GABAPENTIN 600 MG (NEURONTIN) TAB PO SCH ×3 (08:39→17:46)
[2016-11-14] MEDS: RIVAROXABAN 10 MG (XARELTO) TABLET PO SCH (08:40)
[2016-11-14] MEDS: GLIMEPIRIDE 2 MG (AMARYL) TAB PO SCH (08:40)
[2016-11-14] MEDS: ASPIRIN 81 MG CHEW (LOW-DOSE) PO SCH (08:40)
[2016-11-14] MEDS: lisINopril 20 MG (PRINIVIL) TABLET PO SCH (08:40)
[2016-11-14] MEDS: DOCUSATE SODIUM 100 MG (COLACE) CAP PO SCH ×2 (08:40→20:05)
[2016-11-14] MEDS: NS FLUSH 3 ML DAILY IV SCH (08:41)
[2016-11-14] MEDS: PATCH REMOVAL TOP SCH (08:44)
--- NOTE | 2016-11-14 09:55 | NUR ---
Request pain med for pain after taking shower. Med given. Ice packs applied to left knee.
--- NOTE | 2016-11-14 10:39 | NUR ---
PT AT BEDSIDE.
--- NOTE | 2016-11-14 14:10 | PT Daily Note Inpatient (E) ---
PT Daily Treatment Service Date/Time 11/14/16, 14:04 Medical Diagnosis: (1) Total knee replacement status ICD Code: Z96.659 Physical Therapy: Precaution/Isolation: Standard Precautions Resuscitation Status: Full Code Fall Level: Low Risk 25-50 Barriers Limiting Function: Activity Tolerance, Pain Subjective Patient up to recliner when PT entered room this date and stated he isn't doing as good today as he was yesterday and frustrated by this. Patient c/o continued tightness in left knee and rates pain as 10/10 he did have Percoset prior to therapy session. Moderate edema still present in left knee, PT removed kinesiotape as it was starting to roll. Pain Location/Comment 10/10 in left knee. Oxygen Delivery: Room air O2 liters/minute: 0 Treatments Sit, Stand, Supine: Sitting, Long Sitting Extremity: Right Lower Extremity, Left Lower Extremity Assistance: AAROM, AROM, PROM, Stretching Repetition: 2 x 10 Exercise: QS, SAQ, LAQ, Hip Flexion Transfers Sit-Stand from bed: Contact Guard Assist Stand-Sit: Contact Guard Assist Gait Distance Walked: Patient refused to ambulate this date. Patient unable to bear full weight through LLE this date and became increasing anxious with standing. Education/Plan Education Vaso pneumatic device to left knee x 15 minutes with minimum compression and moderate cold, with improved tolerance this date. Patient educated we need to continue to work on knee flexion as it continues to be limited. Encouraged him to complete ROM and ambulation throughout the day Assessment The patient had decreased left knee flexion this date and increased anxiety. Minimal progress made this date. Safety Awareness: Intact Response to Treatment: No Change Plan Continue to progress ROM as patient tolerates. Patient is uanble to return home at this time as he continues to be unable to tolerate consistent weight bearing. Patient will be seen: Daily Thursday-Thursday Discharge Recommendations: Caregiver support Coding Time In: 1008 Time Out: 1058 Total Minutes: 50 Charges: 31165 Comp Pump Apply, 83249 Exercise Therp [address] PT November 14, 2016 14:10
--- NOTE | 2016-11-14 17:30 | NUR ---
Amb with walker from room 319 to elevator and back to room. Gait steady.
--- NOTE | 2016-11-14 17:35 | OT Daily Note Inpatient (E) ---
OT Daily Treatment Service Date/Time 11/14/16, 17:35 Primary Diagnosis: (1) Total knee replacement status ICD Code: Z96.659 Treatment Diagnosis: (1) Weakness ICD Code: R53.1 Onset Date: 11/04/16 Start of Care Date: November 10, 2016 Precaution/Isolation: Standard Precautions Fall Level: Low Risk 25-50 Resuscitation Status: Full Code Current Activity: Agrees to participate Pain Level: 8 Pain Location/Comment Pt sleeping upon therapist arrival. States his knee is very tight and discouraged this date. States he had a better day yesterday and thought he was on the road to recovery, but feels worse today. Oxygen Needed: Room air O2 liters/minute: 0 Current Function Assessment Cognition Attention: Intact Visual/Perceptual Skills Glassess: Yes Hand Dominance Hand Dominance: Right Treatments Modality Modality Parameters Performed: Manual/soft tissue work (Manual/soft tissue work (Manual lymphatic massage with protocol for no node involvement to decrease edema in L LE)) Strengthening Exercise Upper Extremity Strength Exerc : Comment Pt completed bed mobility this date to engage in TE. Able to complete with minimal assistance. Sitting at EOB, pt worked on stretching LLE in gravity assisted position. Able to extend leg and flex leg with noted limited knee flexion. Participated in exercises of active and passive knee flexion and extension to loosen and prepare for functional transfers and functional mobility. Following exercises, pt reports he is not able to get up this date and appeared very discouraged. Educated and discussed continuation of participation in therapy to continue reducing stiffness and improve independence with self care tasks for return home. Education/Assessment Education Provided: Other (Relaxation techniques to decrease pain. Pt was not receptive of this type of therapy) Education Evalution: Limited understanding, Unable to comprehend, Unable to return demo Readiness to Learn: Poor Barriers to Learning: Attitude toward rehab Treatment Tolerance: Bryson trmnt w/ complaints Problems Impacting Treatment: Balance, Pain Rehabilitation Potential: Good Pt continues to demonstrates increased pain levels which interfere with his participation in therapy. POC Plan of Care Problems Identified: Activity Tolerance, ADLs, Balance, Lt UE Strength, Pain, Rt UE Strength, Sensation Plan: Evaluation-OT, ADL/Self Care Management, Therapy Exercises, Therapy Activities Frequency of OT: Five times weekly Duration of OT: 3 weeks Therapy to Include: ADL training, Manual therapy, Pt/family education, Therapeutic activities, UE coord. training, UE strengthing Discharge Recommendations: Caregiver support Pt. Aware of Dx and Prognosis: Yes Pt. Aware of Risk & Benefit: Yes Goals: Discussed with patient Short Term Goals STG Time Frame: 5 Days Will Dress Upper Extremity: With Setup/SBA Will Dress Lower Extremity: With Min Assistance Will do Bathing: With Setup/SBA Will do Toileting: With Min Assistance Will Perform Funct Transfer: With Setup/SBA STG #1 Pt will participate in 20 min of ther-ex with four or less rest breaks. STG #2 Pt will complete grooming tasks standing at sink with SBA. Nursing Home Goals LTG Time Frame: 3 Weeks Will Dress Upper Extremity: Independently Will Dress Lower Extremity: Independently Will do Tub/Shower Transfer: Independently Will Bathe Self: Independently Will do Toilet Transfers: Independently Will do Toilieting: Independently Will Perform Kitchen Mobility: Independently LTG # 1 Pt will participate in 5 minute functional standing task with demonstration of good safety awareness and modified independence. CPT/G Codes Time In: 14:50 Time Out: 15:25 Total Minutes: 35 (07/20 MT, 07/25 TE) BIJU RM OT November 14, 2016 17:35
--- NOTE | 2016-11-14 17:45 | NUR ---
Ice pack to left knee.
[2016-11-14 19:32] VITALS: BP 133/77
--- NOTE | 2016-11-14 19:39 | NUR ---
Patient walks with out to elevator and back to room. Reports pain 8/10 at this time, requesting pain medication with night medications. Will continue to monitor.
[2016-11-14] MEDS: ATORVASTATIN 40 MG (LIPITOR) TABLET PO SCH (20:05)
--- NOTE | 2016-11-15 01:15 | NUR ---
Patient resting in bed, calls to ask for Percocet. Staff tells patient that Percocet is not available at this time, that it would be available again at 0205 per Q6H PRN scheduling. ADMINISTRATIVE ASSOCIATE offers position change, ice pack to knee, elevation of knee, or any thing else that might help the patient's comfort. Patient states "no" to each offer. Will continue to monitor.
--- NOTE | 2016-11-15 02:30 | NUR ---
This nurse brings Percocet to room per patient's previous requests and patient states "I don't want it now, I'll wait for the next nurse." Explained to patient to that it was now time for the Percocet, that this nurse brought two per order if needed if the patient was still having pain. Patient states "I just want Dilaudid!" Dilaudid 2mg IV given per patient request. Patient also requesting an ice pack for his knee. Ice pack given. Explained again that patient's Percocet was available if needed at any time. Will continue to monitor.
[2016-11-15] MEDS: HYDROmorphone 2 MG/ML (DILAUDID) 1 ML SYRINGE IV PRN ×4 (02:32→20:20)
[2016-11-15] MEDS: NS FLUSH 10 ML PRN IV (02:32)
[2016-11-15] MEDS: oxycODONE/ACETAMINOPHEN 10MG-325 MG (PERCOCET-10) TABLET PO PRN (04:45)
--- NOTE | 2016-11-15 04:45 | NUR ---
Patient awakens and calls, reporting 9/10 pain. 2 Percocet given per request. Patient up to bathroom with 1 assistance and walker. Returned to bed without difficulties, though he reports much pain. Resting in bed with left knee elevated. Will continue to monitor.
--- NOTE | 2016-11-15 06:38 | NUR ---
Patient reports that he is restless but that pain is manageable. Offered warm blanket or other comforting interventions, he declines them at this time, resting on side and looking at phone. No needs at this time.
--- NOTE | 2016-11-15 07:20 | NUR ---
Received report from Taiwo Cox RN. assumed patient care.
[2016-11-15] MEDS: INSULIN LISPRO 1 UNIT/0.01 ML (HUMALOG) DOSE SC SCH ×4 (07:30→21:00)
[2016-11-15 08:18] VITALS: BP 120/64
[2016-11-15] MEDS: metFORMIN 1000 MG (GLUCOPHAGE) TABLET PO SCH ×2 (08:27→17:25)
[2016-11-15] MEDS: CARVEDILOL 6.25 MG (COREG) TAB PO SCH ×2 (08:27→17:25)
[2016-11-15] MEDS: GLIMEPIRIDE 2 MG (AMARYL) TAB PO SCH (08:40)
[2016-11-15] MEDS ORDERED: ACETAMINOPHEN 325 MG TAB (TYLENOL) PO PRN (08:55)
--- NOTE | 2016-11-15 10:37 | Progress Note (E) ---
Progress Note SUBJECTIVE Making some slow and steady progress. He felt lido-derm wasn't helping so this was stopped. Has grogginess from oxycodone. Lowered dose but increased frequency. He's already trying to utilize this less. Avoiding NSAID because of rivaroxaban (for DVT prophylaxis) but discussed trying diclofenac gel. Pharmacist suggested adding duloxetine. Updated him and on findings, plan of care. OBJECTIVE Vital Signs Date Time Temp Pulse Resp B/P Pulse Ox O2 Delivery O2 Flow Rate FiO2 11/15/16 08:18 97.0 67 16 120/64 96 Room air 0.00 I & O 11/14/16 11/15/16 Cumulative From/Thru 19:00 07:00 11/08/16 11:06 - 11/15/16 06:06 Intake Total 1749 ml 1393 ml 37619 ml Output Total 500 ml 1825 ml 13970 ml Balance 1249 ml -432 ml 3462 ml GEN: Interactive, oriented. Uncomfortable with knee movement still. HEENT: EOMI, clear sclerae, moist oral mucosa. CV: Regular without murmur. PULM: CTA B with no R/R/W. ABD: Soft, NT/ND with normal bowel sounds. EXTR: Edema/swelling of left leg > right, much more pronounced, extending from upper thigh to ankle. INTEG: No rash. Resolving bruising around site of knee surgery. Incision C/D/I. MS: Left knee incision appears stable, with no redness or discharge. Steri- strips present. 2+ knee edema. Some warmth but no overlying erythema. NEURO: No focal motor neuro deficit. Lab-Past 14 Days, 35 Results 11/09/16 05:30: Anion Gap 14.8, BUN/Creatinine Ratio 27H, Basophils # (Auto) 0.0, Basophils (%) (Auto) 0, Blood Urea Nitrogen 29H, Calcium Level 9.2, Carbon Dioxide Level 28, Chloride Level 102, Creatinine 1.08, Eosinophils # (Auto) 0.2, Eosinophils (%) ( Auto) 2, Estimat Glomerular Filtration Rate 84.4, Estimated GFR (Non- 69.7, Glucose Level 87#, Hematocrit 29.50L, Hemoglobin 10.0L, Lymphocytes # (Auto) 2.1, Lymphocytes (%) (Auto) 24, Mean Corpuscular Hemoglobin 30.5, Mean Corpuscular Hemoglobin Concent 33.9, Mean Corpuscular Volume 90, Mean Platelet Volume 8.8, Monocytes # (Auto) 1.1, Monocytes (%) (Auto ) 12H, Neutrophils # (Auto) 5.4, Neutrophils (%) (Auto) 61, Platelet Count 206, Potassium Level 4.2, Red Blood Count 3.28L, Red Cell Distribution Width 13.0, Sodium Level 141, White Blood Count 8.84 11/12/16 12:22: Anion Gap 14.4, Basophils # (Auto) 0.0, Basophils (%) (Auto) 0, Blood Urea Nitrogen 49#H, Calcium Level 8.9, Carbon Dioxide Level 25, Chloride Level 97L, Creatinine 1.40, Eosinophils # (Auto) 0.2, Eosinophils (%) (Auto) 2, Estimat Glomerular Filtration Rate 62.5, Estimated GFR (Non- 51.7, Glucose Level 137#H, Hematocrit 31.10L, Hemoglobin 10.5L, Lymphocytes # (Auto) 1.3, Lymphocytes (%) (Auto) 12L, Mean Corpuscular Hemoglobin 30.1, Mean Corpuscular Hemoglobin Concent 33.8, Mean Corpuscular Volume 89, Mean Platelet Volume 8.3, Monocytes # (Auto) 0.9, Monocytes (%) (Auto) 9, Neutrophils # (Auto ) 7.9, Neutrophils (%) (Auto) 76H, Platelet Count 265, Potassium Level 5.1#, Red Blood Count 3.49L, Red Cell Distribution Width 12.9, Sodium Level 132#L, White Blood Count 10.45, Albumin 3.4, Lactic Acid Level 1.1, Phosphorus Level 4.1, Total Creatine Kinase 110 11/12/16 US-VENOUS STUDY EXT LT INDICATION: Left leg pain. Recent knee replacement. TECHNIQUE: Grayscale, pulsed and color Doppler imaging of the left lower extremity. COMPARISONS: 11/07/2016 FINDINGS: The left common femoral, femoral and popliteal veins are patent without evidence of DVT. Visualized proximal aspects of the greater saphenous, deep femoral, posterior tibial and peroneal veins are also patent. All of the evaluated deep venous structures demonstrate normal compressibility and waveform augmentation where applicable. There is a small fluid collection in the soft tissues along the posterior and medial aspect of the knee. IMPRESSION: 1. Stable examination from 5 days prior. No left lower extremity deep venous thrombosis (DVT). 2. Small minimally complicated fluid-like collection along the medial aspect of the knee at the level of the incision likely represents postoperative seroma. ASSESSMENT Thomas Skaggs is a 61 year old male admitted to [facility] as a transfer from [facility] where had left total knee replacement. He had swelling and increased pain which made rehab challenging. He has several chronic problems. PLAN * Left knee pain, Left thigh pain, S/P Left knee replacement: Initially he had only modest improvement with escalation of pain medication regimen. 11/10, screened for signs of DVT, infection, compartment syndrome, but all this workup was reassuring. Streamlined regimen 11/10 with increased oxycodone/ acetaminophen and increased hydromorphone. Stopped morphine. Added lidoderm but he found this wasn't helping. Increased gabapentin 11/12. Added diclofenac gel and duloxetine 11/15. Monitor closely for signs of surgical complications. * Left Leg Swelling: Improving. Leg sono negative for DVT or signs of hematoma. Does have a seroma about the left knee. Observe. * Nausea: Likely adverse effect of narcotic medication. Ondansetron, promethazine. * Physical Deconditioning, OA: PT/OT eval and treat. * F/E/N: Diabetic diet. Peripheral IV. I&O to monitor BMs. * Prophylaxis: Rivaroxaban * Code Status: Full * Dispo: alf for above issues, expecting 2-3 week stay. CHRONIC ISSUES * CAD: Aspirin * HLD: Atorvastatin * HTN: Carvedilol, HCTZ, Lisinopril * Constipation: Bowel regimen * Chronic Pain, Diabetic Peripheral Neuropathy: Gabapentin * Diabetes Mellitus Type II: Glimepiride, metformin, sliding scale. SANDRA QUARLES MD November 15, 2016 10:30
[2016-11-15] MEDS: HYDROCHLOROTHIAZIDE 12.5 MG (HCTZ) TABLET PO SCH (11:04)
[2016-11-15] MEDS: GABAPENTIN 600 MG (NEURONTIN) TAB PO SCH ×3 (11:04→17:24)
[2016-11-15] MEDS: DOCUSATE SODIUM 100 MG (COLACE) CAP PO SCH ×2 (11:04→20:21)
[2016-11-15] MEDS: oxyCODONE/ACETAMINOPHEN 5MG-325 MG (PERCOCET) TABLET PO PRN ×3 (11:04→23:29)
[2016-11-15] MEDS: ASPIRIN 81 MG CHEW (LOW-DOSE) PO SCH (11:04)
[2016-11-15] MEDS: RIVAROXABAN 10 MG (XARELTO) TABLET PO SCH (11:05)
[2016-11-15] MEDS: lisINopril 20 MG (PRINIVIL) TABLET PO SCH (11:05)
[2016-11-15] MEDS: NS FLUSH 3 ML DAILY IV SCH ×2 (11:05→13:23)
[2016-11-15] MEDS: DICLOFENAC 1% GEL (VOLTAREN) 100 GM TUBE TOP SCH ×3 (11:32→20:21)
--- NOTE | 2016-11-15 12:41 | PT Daily Note Inpatient (E) ---
PT Daily Treatment Service Date/Time 11/15/16, 12:36 Medical Diagnosis: (1) Total knee replacement status ICD Code: Z96.659 Physical Therapy: Precaution/Isolation: Standard Precautions Resuscitation Status: Full Code Fall Level: Low Risk 25-50 Barriers Limiting Function: Activity Tolerance, Pain Subjective Patient declined pain medication prior to treatment, nurse reported to PT patient had refused Flexeril and Dilaudid also. Patient c/o tightness in left knee, however PT notes decreased edema. Pain Location/Comment Pain at left knee and quadriceps this date with hypersensitivity noted along medial knee joint. PT educated patient and his on desensitization exercises. Oxygen Delivery: Room air O2 liters/minute: 0 Treatments Sit, Stand, Supine: Sitting, Long Sitting Extremity: Left Lower Extremity Assistance: AROM, PROM, Stretching Repetition: 2 x 10 Exercise: QS, Heel Slides, Hip Flexion Comment Passive knee flexion with patient scooting weight over LLE with PT assisting in maintaining foot neutral. PT perform grade 1-2 post/ant joint mob for pain control at patella. Minimal hypomobility noted to left patella. Education/Plan Education Vaso pneumatic device to left knee x 15 minutes with minimum compression and moderate cold, with improved tolerance this date. Patient educated we need to continue to work on knee flexion as it continues to be limited. Encouraged him to complete ROM and ambulation throughout the day , and to ambulate throughout the day. Assessment Improving quadriceps contraction, knee flexion continues to be signficantly limited and minimal improvement is able to be made as patient unable to tolerate PROM without guarding from quads. Patient declines trying other positions to stretch his knee (i,e, prone to allow hamstring to assist him more) . Patient decline pain pill during treatment as well. Safety Awareness: Intact Response to Treatment: No Change Plan Continue with current plan of care. Patient will be seen: Daily Thursday-Thursday Discharge Recommendations: Caregiver support Coding Time In: 36 Time Out: 1025 Charges: 99227 Comp Pump Apply, 17608 Exercise Therp [address] PT November 15, 2016 12:41
[2016-11-15] MEDS: ATORVASTATIN 40 MG (LIPITOR) TABLET PO SCH (20:21)
[2016-11-15] MEDS: DULoxetine 20 MG (CYMBALTA) CAP PO SCH (20:21)
[2016-11-15 21:39] VITALS: BP 145/70
[2016-11-16] MEDS: HYDROmorphone 2 MG/ML (DILAUDID) 1 ML SYRINGE IV PRN (01:00)
[2016-11-16] MEDS: CYCLOBENZAPRINE 10 MG (FLEXERIL) TAB PO PRN ×2 (05:48→20:30)
[2016-11-16] MEDS: oxyCODONE/ACETAMINOPHEN 5MG-325 MG (PERCOCET) TABLET PO PRN ×3 (05:48→20:30)
--- NOTE | 2016-11-16 06:43 | NUR ---
Patient resting in bed throughout night. Does not use urinal this shift, requests to get up to go all the way into bathroom. Dilaudid given x2 and Percocet given x2 this shift. See eMAR. No needs at this time.
[2016-11-16] MEDS: INSULIN LISPRO 1 UNIT/0.01 ML (HUMALOG) DOSE SC SCH ×4 (07:30→21:00)
--- NOTE | 2016-11-16 07:31 | NUR ---
Pt awake in bed when nurse arrives. Saline lock without redness or edema. L knee incision open to air with steri strips intact. Pt complains that knee is in constant pain at a level 10 or 15 with a lot of tightness. Pt declines a warm blanket to knee or additional pain medication.
[2016-11-16 08:17] VITALS: BP 127/67
[2016-11-16] MEDS: GABAPENTIN 600 MG (NEURONTIN) TAB PO SCH ×3 (08:43→17:59)
[2016-11-16] MEDS: GLIMEPIRIDE 2 MG (AMARYL) TAB PO SCH (08:43)
[2016-11-16] MEDS: lisINopril 20 MG (PRINIVIL) TABLET PO SCH (08:43)
[2016-11-16] MEDS: RIVAROXABAN 10 MG (XARELTO) TABLET PO SCH (08:43)
[2016-11-16] MEDS: CARVEDILOL 6.25 MG (COREG) TAB PO SCH ×2 (08:44→17:59)
[2016-11-16] MEDS: DULoxetine 20 MG (CYMBALTA) CAP PO SCH ×2 (08:44→20:42)
[2016-11-16] MEDS: HYDROCHLOROTHIAZIDE 12.5 MG (HCTZ) TABLET PO SCH (08:44)
[2016-11-16] MEDS: DOCUSATE SODIUM 100 MG (COLACE) CAP PO SCH ×2 (08:45→20:42)
[2016-11-16] MEDS: ASPIRIN 81 MG CHEW (LOW-DOSE) PO SCH (08:45)
[2016-11-16] MEDS: metFORMIN 1000 MG (GLUCOPHAGE) TABLET PO SCH ×2 (08:45→17:59)
[2016-11-16] MEDS: DICLOFENAC 1% GEL (VOLTAREN) 100 GM TUBE TOP SCH ×4 (08:46→20:45)
[2016-11-16] MEDS: NS FLUSH 3 ML DAILY IV SCH (08:46)
--- NOTE | 2016-11-16 18:00 | NUR ---
Pt has slept much of this shift. He has decline nurses offers to walk in the [place]. He has complained of pain rated at a 10 for most of the shift, but not wanted to take very much pain medication as it makes him sleepy.
[2016-11-16 19:47] VITALS: BP 140/77
[2016-11-16] MEDS: ATORVASTATIN 40 MG (LIPITOR) TABLET PO SCH (20:42)
[2016-11-17] MEDS: oxyCODONE/ACETAMINOPHEN 5MG-325 MG (PERCOCET) TABLET PO PRN ×5 (01:51→23:55)
--- NOTE | 2016-11-17 06:47 | NUR ---
Patient rests in bed throughout night with minimal needs. Up to bathroom x1 for bowel movement. Percocet given x2 this shift. No needs at this time.
[2016-11-17] MEDS: INSULIN LISPRO 1 UNIT/0.01 ML (HUMALOG) DOSE SC SCH ×4 (07:30→20:55)
[2016-11-17 07:52] VITALS: BP 131/71
[2016-11-17] MEDS: RIVAROXABAN 10 MG (XARELTO) TABLET PO SCH (08:41)
[2016-11-17] MEDS: CARVEDILOL 6.25 MG (COREG) TAB PO SCH ×2 (08:41→18:05)
[2016-11-17] MEDS: metFORMIN 1000 MG (GLUCOPHAGE) TABLET PO SCH ×2 (08:42→18:05)
[2016-11-17] MEDS: GLIMEPIRIDE 2 MG (AMARYL) TAB PO SCH (08:42)
[2016-11-17] MEDS: ASPIRIN 81 MG CHEW (LOW-DOSE) PO SCH (08:42)
[2016-11-17] MEDS: lisINopril 20 MG (PRINIVIL) TABLET PO SCH (08:42)
[2016-11-17] MEDS: DOCUSATE SODIUM 100 MG (COLACE) CAP PO SCH ×2 (08:42→21:39)
[2016-11-17] MEDS: HYDROCHLOROTHIAZIDE 12.5 MG (HCTZ) TABLET PO SCH (08:43)
[2016-11-17] MEDS: GABAPENTIN 600 MG (NEURONTIN) TAB PO SCH ×3 (08:43→18:05)
[2016-11-17] MEDS: DICLOFENAC 1% GEL (VOLTAREN) 100 GM TUBE TOP SCH ×4 (08:43→21:54)
[2016-11-17] MEDS: DULoxetine 20 MG (CYMBALTA) CAP PO SCH ×2 (08:43→21:39)
[2016-11-17] MEDS: NS FLUSH 3 ML DAILY IV SCH (08:46)
--- NOTE | 2016-11-17 09:35 | NUR ---
Pt ambulated to/from bathroom with SBA, using walker. After eating 100% breakfast, patient is up to chair, awaiting arrival of PT. Called OT to request them to help in shower today- should be this afternoon sometime. Percocet 10mg PO given with breakfast pills at 0840
--- NOTE | 2016-11-17 10:55 | NUR ---
Pt to PT department with Melvin valencia w/[facility]
--- NOTE | 2016-11-17 11:36 | PT Daily Note Inpatient (E) ---
PT Daily Treatment Service Date/Time 11/17/16, 11:33 Medical Diagnosis: (1) Total knee replacement status ICD Code: Z96.659 Physical Therapy: Precaution/Isolation: Standard Precautions Resuscitation Status: Full Code Fall Level: Low Risk 25-50 Barriers Limiting Function: Activity Tolerance, Pain Subjective Patient continues report pain as a 10/10 in the left knee. Per review of nursing notes patient refused to ambulate in halls with nursing yesterday. Patient is willing to go the rehabilitation center this date. Improved edema in LLE especially in distal LE as well as around knee joint. Left knee AROM lacking approximately 7 degrees of extension and flexion actively to 61 degrees , passively 63 degrees with less quadriceps muscle guarding. Oxygen Delivery: Room air O2 liters/minute: 0 Treatments Assistance: AAROM, AROM Repetition: 2 x 10 Exercise: QS, Heel Slides, LAQ Comment Standing HS stretch 2x20 seconds on left; knee flexion AROM 2x20 reps with LLE on step. Recumbent bike with 1/2 revolution x 8 minutes. Comment Ambulation 75 feet with FWW SBA, 15 feet x 2. Transfers Rolling: Supervision or setup Sit-Supine: Supervision or setup Sitting Edge of Bed: Modified [place] Supine-Sit: Supervision or setup Sit-Stand from bed: Contact Guard Assist Gait Ambulation: Contact Guard Assist Gait Training: Limitations: Fatigue, Pain Education/Plan Education Vaso pneumatic device to left knee x 15 minutes with minimum compression and moderate cold, with improved tolerance this date. Patient educated we need to continue to work on knee flexion as it continues to be limited. Continue to encourage him to complete ROM and ambulation throughout the day , and to ambulate throughout the day. Assessment Patient had c/o left knee soreness following treatment, left knee flexion ROM but continues to be significantly limited. The patient had improved activity tolerance this date. Safety Awareness: Intact Response to Treatment: Improving Plan Continue to progress ROM, gait, work on stair training tomorrow. Patient will be seen: Daily Thursday-Thursday Discharge Recommendations: Caregiver support Coding Time In: 1047 Time Out: 1209 Total Minutes: 92 Charges: 64512 Comp Pump Apply, 18661 Gait Training 15 mi, [address] PT November 17, 2016 11:36
--- NOTE | 2016-11-17 12:08 | NUR ---
Pt returns to room from PT dept
[2016-11-17] MEDS: CYCLOBENZAPRINE 10 MG (FLEXERIL) TAB PO PRN (12:14)
--- NOTE | 2016-11-17 12:22 | NUR ---
Flexeril and Percocet given for "greater than 10/10 left knee pain." Voltaren gel applied- patient resting in chair. Blood glucose fingerstick was 118.
--- NOTE | 2016-11-17 13:27 | NUR ---
Pt to shower with Zakiya Tello OT.
--- NOTE | 2016-11-17 15:35 | Progress Note (E) ---
Progress Note SUBJECTIVE; patient under swb and doing well but is mildly depressed because of delay in healing. Objective; Vital Signs Date Time Temp Pulse Resp B/P Pulse Ox O2 Delivery O2 Flow Rate FiO2 11/17/16 07:52 97.0 78 20 131/71 96 Room air 11/15/16 08:18 0.00 I & O 11/16/16 11/17/16 Cumulative From/Thru 19:00 07:00 11/08/16 11:06 - 11/17/16 06:07 Intake Total 736 ml 775 ml 33543 ml Output Total 400 ml 1600 ml 56303 ml Balance 336 ml -825 ml 3854 ml Lab-Past 14 Days, 35 Results 11/09/16 05:30: Anion Gap 14.8, BUN/Creatinine Ratio 27H, Basophils # (Auto) 0.0, Basophils (%) (Auto) 0, Blood Urea Nitrogen 29H, Calcium Level 9.2, Carbon Dioxide Level 28, Chloride Level 102, Creatinine 1.08, Eosinophils # (Auto) 0.2, Eosinophils (%) ( Auto) 2, Estimat Glomerular Filtration Rate 84.4, Estimated GFR (Non- 69.7, Glucose Level 87#, Hematocrit 29.50L, Hemoglobin 10.0L, Lymphocytes # (Auto) 2.1, Lymphocytes (%) (Auto) 24, Mean Corpuscular Hemoglobin 30.5, Mean Corpuscular Hemoglobin Concent 33.9, Mean Corpuscular Volume 90, Mean Platelet Volume 8.8, Monocytes # (Auto) 1.1, Monocytes (%) (Auto ) 12H, Neutrophils # (Auto) 5.4, Neutrophils (%) (Auto) 61, Platelet Count 206, Potassium Level 4.2, Red Blood Count 3.28L, Red Cell Distribution Width 13.0, Sodium Level 141, White Blood Count 8.84 11/12/16 12:22: Anion Gap 14.4, Basophils # (Auto) 0.0, Basophils (%) (Auto) 0, Blood Urea Nitrogen 49#H, Calcium Level 8.9, Carbon Dioxide Level 25, Chloride Level 97L, Creatinine 1.40, Eosinophils # (Auto) 0.2, Eosinophils (%) (Auto) 2, Estimat Glomerular Filtration Rate 62.5, Estimated GFR (Non- 51.7, Glucose Level 137#H, Hematocrit 31.10L, Hemoglobin 10.5L, Lymphocytes # (Auto) 1.3, Lymphocytes (%) (Auto) 12L, Mean Corpuscular Hemoglobin 30.1, Mean Corpuscular Hemoglobin Concent 33.8, Mean Corpuscular Volume 89, Mean Platelet Volume 8.3, Monocytes # (Auto) 0.9, Monocytes (%) (Auto) 9, Neutrophils # (Auto ) 7.9, Neutrophils (%) (Auto) 76H, Platelet Count 265, Potassium Level 5.1#, Red Blood Count 3.49L, Red Cell Distribution Width 12.9, Sodium Level 132#L, White Blood Count 10.45, Albumin 3.4, Lactic Acid Level 1.1, Phosphorus Level 4.1, Total Creatine Kinase 110 ASSESSMENT; CHRONIC ISSUES * CAD: Aspirin * HLD: Atorvastatin * HTN: Carvedilol, HCTZ, Lisinopril * Constipation: Bowel regimen * Chronic Pain, Diabetic Peripheral Neuropathy: Gabapentin * Diabetes Mellitus Type II: Glimepiride, metformin, sliding scale. post op left knee replacement stable Plan; hydrate and continue rehab and pain control . FORTUNATO RUCKER DO November 17, 2016 15:35
--- NOTE | 2016-11-17 16:06 | OT Daily Note Inpatient (E) ---
OT Daily Treatment Service Date/Time 11/17/16, 15:59 Primary Diagnosis: (1) Total knee replacement status ICD Code: Z96.659 Treatment Diagnosis: (1) Weakness ICD Code: R53.1 Onset Date: 11/04/16 Start of Care Date: November 10, 2016 Precaution/Isolation: Standard Precautions Fall Level: Low Risk 25-50 Resuscitation Status: Full Code I had peracet and flexerall for pain Pain Level: 10 Oxygen Needed: Room air O2 liters/minute: 0 Current Function Assessment Cognition Attention: Intact Visual/Perceptual Skills Glassess: Yes Hand Dominance Hand Dominance: Right Bed Mobility/Transfers Sit to Stand: CGA Chair Transfer: CGA Sitting Balance: WFL Dressing Dressing: Minimum assist (sock to doff. ) Dressing Assistive Device: Long shoe horn, Energy Sales Broker, Sock aid, Walker Comment Pt educated in adaptive equipment and resources for LE dressing wit rod buster helper and sock aid. Pt was able to don/doff with SBA and v/c. Pt education for foot care for diabetes with telescoping mirror, long handle sponges for bathing and lotion. Pt education for bath tub bench for transfers at home and resources fo borrowing to increase independence and safety. Bathing Bathing Assistive Device: Bath bench, Grab bar Shower/Bench Transfer Ability: CGA, Verbal cues Bathing Assistance Needed-: R Foot (long handle sponge brush was given for home ), L Foot Bathing- Type of Assistance: CGA, Balance Pt was able to wash and dry all except feet and required CGA for balance with standing. Toileting Toilet Hygiene: SBA, CGA Toilet Transfer Ability: CGA Education/Assessment Education Provided: Other (Relaxation techniques to decrease pain. Pt was not receptive of this type of therapy) Education Evalution: Limited understanding, Unable to comprehend, Unable to return demo Readiness to Learn: Poor Barriers to Learning: Attitude toward rehab Treatment Tolerance: Bryson trmnt w/ complaints Problems Impacting Treatment: Balance, Pain Rehabilitation Potential: Good Pt is improving with transfers , dressing and bathing at CGA/SBA POC Plan of Care Problems Identified: Activity Tolerance, ADLs, Balance, Lt UE Strength, Pain, Rt UE Strength, Sensation Plan: Evaluation-OT, ADL/Self Care Management, Therapy Exercises, Therapy Activities Frequency of OT: Five times weekly Duration of OT: 3 weeks Therapy to Include: ADL training, Manual therapy, Pt/family education, Therapeutic activities, UE coord. training, UE strengthing Discharge Recommendations: Caregiver support Pt. Aware of Dx and Prognosis: Yes Pt. Aware of Risk & Benefit: Yes Goals: Discussed with patient Short Term Goals STG Time Frame: 5 Days Will Dress Upper Extremity: With Setup/SBA (with rod buster helper and sock aid v/c) Will Dress Lower Extremity: With Min Assistance Will do Bathing: With Setup/SBA (washed all but feet, CGA for standing.) Will do Toileting: With Min Assistance Will Perform Funct Transfer: With Setup/SBA (CGA) STG #1 Pt will participate in 20 min of ther-ex with four or less rest breaks. STG #2 Pt will complete grooming tasks standing at sink with SBA. Longterm Goals LTG Time Frame: 3 Weeks Will Dress Upper Extremity: Independently Will Dress Lower Extremity: Independently Will do Tub/Shower Transfer: Independently Will Bathe Self: Independently Will do Toilet Transfers: Independently Will do Toilieting: Independently Will Perform Kitchen Mobility: Independently LTG # 1 Pt will participate in 5 minute functional standing task with demonstration of good safety awareness and modified independence. CPT/G Codes Time In: 1300 Time Out: 1358 Total Minutes: 58 CPT Codes: 74217 ADL EA Zakiya Toledo November 17, 2016 16:06
--- NOTE | 2016-11-17 16:34 | PT Daily Note Inpatient (E) ---
PT Daily Treatment Service Date/Time 11/17/16, 16:22 Medical Diagnosis: (1) Total knee replacement status ICD Code: Z96.659 Physical Therapy: Precaution/Isolation: Standard Precautions Resuscitation Status: Full Code Fall Level: Low Risk 25-50 Barriers Limiting Function: Activity Tolerance, Pain Subjective Pt resting in recliner with feet elevated. States knee is so stiff. Agrees to therapy. Oxygen Delivery: Room air O2 liters/minute: 0 Treatments Sit, Stand, Supine: Sitting, Long Sitting Extremity: Both Lower Extremity Assistance: AROM, PROM (to left ankle) Repetition: 2 x 10 Exercise: AP, QS, Heel Slides, Hip Abduction, SLR, LAQ, Other (sitting knee flexion.) Transfers Sit-Stand from bed: Complete [place] Stand-Sit: Supervision or setup (with cues to reach back with both hands.) Gait Distance Walked: 110 feet x 2 [place] requires cues to take deep breaths and to flex his left knee during swing phase. Pt appears to take shallow breaths when hurting or when concentrating. Assistive Device: FWW Gait Description: Decreased Bertha, Slow, Antalgic Gait, Uneven Weight Shift, Step-To Gait Pattern, Require Extexnsive Effort Gait Training: Limitations: Fatigue, Decreased Strength Education/Plan Assessment Pt tolerated exercises fairly well with cues to take deep breaths. Plan May try standing exercises tomorrow. Patient will be seen: Daily Thursday-Thursday Discharge Recommendations: Caregiver support Coding Time In: 2:38 Time Out: 3:21 Total Minutes: 42 Charges: 96287 Exercise Therp 15 m (27 minutes), 57567 Gait Training 15 mi (15 minutes) Alex Amaya PTA November 17, 2016 16:34
--- NOTE | 2016-11-17 17:41 | NUR ---
Pt sitting up in chair- has slept all afternoon after Flexeril. He c/o pain in left knee but requests to hold off on pain medications until after he is finished eating supper. Had visitors but fell asleep during their visit. at bedside.
--- NOTE | 2016-11-17 18:08 | NUR ---
Pt agrees to take Percocet at this time.
--- NOTE | 2016-11-17 20:00 | NUR ---
Resting in bed. Asleep. Respirations even and non-labored. Call light within reach.
[2016-11-17 20:50] VITALS: BP 140/77
--- NOTE | 2016-11-17 21:27 | NUR ---
Ready for sleep. Percocet and Flexeril administered for left knee discomfort. HS cares given. Call light within reach. Voiding without difficulty. Cooperative with cares.
[2016-11-17] MEDS: ATORVASTATIN 40 MG (LIPITOR) TABLET PO SCH (21:39)
--- NOTE | 2016-11-17 21:39 | NUR ---
Patient refused Cymbalta. States he does not take this med and wants to know what are ordered it. Refused med.
[2016-11-18] MEDS: oxyCODONE/ACETAMINOPHEN 5MG-325 MG (PERCOCET) TABLET PO PRN ×6 (00:57→21:27)
--- NOTE | 2016-11-18 00:57 | NUR ---
Percocet 2 tabs administered for severe left knee pain. Sat at the edge of the bed and voided 300 cc yellow urine. Wanting muscle relaxer also, which was given at midnight. No other needs at this time. Call light with in reach.
--- NOTE | 2016-11-18 03:30 | NUR ---
Awake. Wanting Dilaudid for pain. Reminded patient that he will be going home soon and will nit have IV pain meds at home. Told patient his pain pills were due soon and I would bring them in. Repositioned patient in bed.
--- NOTE | 2016-11-18 03:44 | NUR ---
Percocet 2 tabs administered for left knee pain. Incision healing well. Remains a little swollen. No warmth felt to knee area or around. Repositioned.
[2016-11-18] MEDS: INSULIN LISPRO 1 UNIT/0.01 ML (HUMALOG) DOSE SC SCH ×4 (06:22→21:00)
--- NOTE | 2016-11-18 06:53 | NUR ---
Rested at long intervals tonight. Voiding without difficulty.Resting quietly tonight. Call light within reach.
[2016-11-18 08:00] VITALS: BP 117/67
[2016-11-18] MEDS: lisINopril 20 MG (PRINIVIL) TABLET PO SCH (08:48)
[2016-11-18] MEDS: HYDROCHLOROTHIAZIDE 12.5 MG (HCTZ) TABLET PO SCH (08:48)
[2016-11-18] MEDS: CARVEDILOL 6.25 MG (COREG) TAB PO SCH ×2 (08:48→17:37)
[2016-11-18] MEDS: RIVAROXABAN 10 MG (XARELTO) TABLET PO SCH (08:48)
[2016-11-18] MEDS: ASPIRIN 81 MG CHEW (LOW-DOSE) PO SCH (08:48)
[2016-11-18] MEDS: metFORMIN 1000 MG (GLUCOPHAGE) TABLET PO SCH ×2 (08:48→17:37)
[2016-11-18] MEDS: DOCUSATE SODIUM 100 MG (COLACE) CAP PO SCH ×2 (08:48→21:20)
[2016-11-18] MEDS: GABAPENTIN 600 MG (NEURONTIN) TAB PO SCH ×3 (08:48→17:37)
--- NOTE | 2016-11-18 08:48 | NUR ---
PRN Percocet given at this time prior to PT for c/o L knee pain rated 6/10. Pt denies other needs. PT in room at this time.
[2016-11-18] MEDS: GLIMEPIRIDE 2 MG (AMARYL) TAB PO SCH (08:49)
[2016-11-18] MEDS: NS FLUSH 3 ML DAILY IV SCH (08:52)
[2016-11-18] MEDS: DULoxetine 20 MG (CYMBALTA) CAP PO SCH ×2 (08:52→21:20)
--- NOTE | 2016-11-18 10:16 | PT Daily Note Inpatient (E) ---
PT Daily Treatment Service Date/Time 11/18/16, 10:09 Medical Diagnosis: (1) Total knee replacement status ICD Code: Z96.659 Physical Therapy: Precaution/Isolation: Standard Precautions Resuscitation Status: Full Code Fall Level: Low Risk 25-50 Barriers Limiting Function: Activity Tolerance, Pain Subjective Pt lying in bed and getting his morning pills. Pt agrees to therapy. States knee was sore all night. Oxygen Delivery: Room air O2 liters/minute: 0 Treatments Sit, Stand, Supine: Supine, Sitting, Standing Extremity: Left Lower Extremity (in standing) Assistance: AAROM, AROM, Stretching Repetition: 2 x 10 Exercise: QS, Heel Slides, Hip Abduction (in standing), SLR, LAQ, Other ( hamstring curls with yellow thera band) Comment Patella mobs and AP/PA knee glides. MFR with foam roller to left quad. Stretching stretching quads and hamstrings at step 3 x 30 seconds each. Comment Bicycle x 5 minutes rocking back and forth. Unable to make full revolution. Transfers Sit-Supine: Contact Guard Assist Sitting Edge of Bed: Complete Forest Supine-Sit: Complete Forest Sit-Stand from bed: Complete [place] Stand-Sit: Supervision or setup Gait Ambulation: Supervision or setup Distance Walked: 150 feet cues to flex knee during swing phase and for deep breathing. Assistive Device: FWW Gait Description: Decreased Bertha, Slow, Short Step Length, Step-To Gait Pattern Gait Training: Limitations: Fatigue Education/Plan Assessment Pt is tolerating increased activity. Pt. reports pain in knee with most movements but is able to transition and walk in room without assist. Passive knee flexion continues at 60-65 degrees. Response to Treatment: Improving Plan Patient will be seen: Daily Thursday-Thursday Discharge Recommendations: Caregiver support Coding Time In: 9:06 Time Out: 10:25 Total Minutes: 79 Charges: 32772 Exercise Therp 15 m, 54246 Gait Training 15 mi, 40395 Man Therp Tech 15 m (15 minutes), Other (vasopneumatic compression 31500) Alex Amaya PTA November 18, 2016 10:16
[2016-11-18] MEDS: CYCLOBENZAPRINE 10 MG (FLEXERIL) TAB PO PRN ×3 (10:36→21:27)
[2016-11-18] MEDS: DICLOFENAC 1% GEL (VOLTAREN) 100 GM TUBE TOP SCH ×4 (10:36→21:34)
--- NOTE | 2016-11-18 10:36 | NUR ---
PRN Flexeril given at this time for L knee pain as pt returned from extensive PT. Pt does not wish to have Dilaudid, states it makes him feel loopy. Voltaren gel applied. Denies other needs.
--- NOTE | 2016-11-18 10:39 | Progress Note-A/P (E) ---
Progress Note Subjective Subjective continued pt and c.c. pain pre and post therapy. Objective VS Vital Signs Date Time Temp Pulse Resp B/P Pulse Ox O2 Delivery O2 Flow Rate FiO2 11/18/16 08:00 96.8 69 18 117/67 95 Room air 11/15/16 08:18 0.00 I&O Vital Signs Date Time Temp Pulse Resp B/P Pulse Ox O2 Delivery O2 Flow Rate FiO2 11/18/16 08:00 96.8 69 18 117/67 95 Room air 11/15/16 08:18 0.00 I & O 11/17/16 11/18/16 Cumulative From/Thru 19:00 07:00 11/08/16 11:06 - 11/18/16 06:09 Intake Total 846 ml 2050 ml 18730 ml Output Total 450 ml 1500 ml 52704 ml Balance 396 ml 550 ml 4800 ml Lab-Past 14 Days, 35 Results 11/09/16 05:30: Anion Gap 14.8, BUN/Creatinine Ratio 27H, Basophils # (Auto) 0.0, Basophils (%) (Auto) 0, Blood Urea Nitrogen 29H, Calcium Level 9.2, Carbon Dioxide Level 28, Chloride Level 102, Creatinine 1.08, Eosinophils # (Auto) 0.2, Eosinophils (%) ( Auto) 2, Estimat Glomerular Filtration Rate 84.4, Estimated GFR (Non- 69.7, Glucose Level 87#, Hematocrit 29.50L, Hemoglobin 10.0L, Lymphocytes # (Auto) 2.1, Lymphocytes (%) (Auto) 24, Mean Corpuscular Hemoglobin 30.5, Mean Corpuscular Hemoglobin Concent 33.9, Mean Corpuscular Volume 90, Mean Platelet Volume 8.8, Monocytes # (Auto) 1.1, Monocytes (%) (Auto ) 12H, Neutrophils # (Auto) 5.4, Neutrophils (%) (Auto) 61, Platelet Count 206, Potassium Level 4.2, Red Blood Count 3.28L, Red Cell Distribution Width 13.0, Sodium Level 141, White Blood Count 8.84 11/12/16 12:22: Anion Gap 14.4, Basophils # (Auto) 0.0, Basophils (%) (Auto) 0, Blood Urea Nitrogen 49#H, Calcium Level 8.9, Carbon Dioxide Level 25, Chloride Level 97L, Creatinine 1.40, Eosinophils # (Auto) 0.2, Eosinophils (%) (Auto) 2, Estimat Glomerular Filtration Rate 62.5, Estimated GFR (Non- 51.7, Glucose Level 137#H, Hematocrit 31.10L, Hemoglobin 10.5L, Lymphocytes # (Auto) 1.3, Lymphocytes (%) (Auto) 12L, Mean Corpuscular Hemoglobin 30.1, Mean Corpuscular Hemoglobin Concent 33.8, Mean Corpuscular Volume 89, Mean Platelet Volume 8.3, Monocytes # (Auto) 0.9, Monocytes (%) (Auto) 9, Neutrophils # (Auto ) 7.9, Neutrophils (%) (Auto) 76H, Platelet Count 265, Potassium Level 5.1#, Red Blood Count 3.49L, Red Cell Distribution Width 12.9, Sodium Level 132#L, White Blood Count 10.45, Albumin 3.4, Lactic Acid Level 1.1, Phosphorus Level 4.1, Total Creatine Kinase 110 General Awake, alert, oriented to person, place, and situation. NAD at present HEENT EOMI, PERRL CV RRR, S1 S2 audible Lungs Clear No rales, rhonchi or wheezes Abdomen Soft non distended, no tenderness to palpation, no masses Extremities No edema post op left knee edema and post pt pain . Integumentary No unusual findings Neuro No focal motor neuro deficits Musculoskeletal post op painful rom of involved left knee. 24 Hr Result Diagram Vital Signs Date Time Temp Pulse Resp B/P Pulse Ox O2 Delivery O2 Flow Rate FiO2 11/18/16 08:00 96.8 69 18 117/67 95 Room air 11/15/16 08:18 0.00 I & O 11/17/16 11/18/16 Cumulative From/Thru 19:00 07:00 11/08/16 11:06 - 11/18/16 06:09 Intake Total 846 ml 2050 ml 34445 ml Output Total 450 ml 1500 ml 18285 ml Balance 396 ml 550 ml 4800 ml Lab-Past 14 Days, 35 Results 11/09/16 05:30: Anion Gap 14.8, BUN/Creatinine Ratio 27H, Basophils # (Auto) 0.0, Basophils (%) (Auto) 0, Blood Urea Nitrogen 29H, Calcium Level 9.2, Carbon Dioxide Level 28, Chloride Level 102, Creatinine 1.08, Eosinophils # (Auto) 0.2, Eosinophils (%) ( Auto) 2, Estimat Glomerular Filtration Rate 84.4, Estimated GFR (Non- 69.7, Glucose Level 87#, Hematocrit 29.50L, Hemoglobin 10.0L, Lymphocytes # (Auto) 2.1, Lymphocytes (%) (Auto) 24, Mean Corpuscular Hemoglobin 30.5, Mean Corpuscular Hemoglobin Concent 33.9, Mean Corpuscular Volume 90, Mean Platelet Volume 8.8, Monocytes # (Auto) 1.1, Monocytes (%) (Auto ) 12H, Neutrophils # (Auto) 5.4, Neutrophils (%) (Auto) 61, Platelet Count 206, Potassium Level 4.2, Red Blood Count 3.28L, Red Cell Distribution Width 13.0, Sodium Level 141, White Blood Count 8.84 11/12/16 12:22: Anion Gap 14.4, Basophils # (Auto) 0.0, Basophils (%) (Auto) 0, Blood Urea Nitrogen 49#H, Calcium Level 8.9, Carbon Dioxide Level 25, Chloride Level 97L, Creatinine 1.40, Eosinophils # (Auto) 0.2, Eosinophils (%) (Auto) 2, Estimat Glomerular Filtration Rate 62.5, Estimated GFR (Non- 51.7, Glucose Level 137#H, Hematocrit 31.10L, Hemoglobin 10.5L, Lymphocytes # (Auto) 1.3, Lymphocytes (%) (Auto) 12L, Mean Corpuscular Hemoglobin 30.1, Mean Corpuscular Hemoglobin Concent 33.8, Mean Corpuscular Volume 89, Mean Platelet Volume 8.3, Monocytes # (Auto) 0.9, Monocytes (%) (Auto) 9, Neutrophils # (Auto ) 7.9, Neutrophils (%) (Auto) 76H, Platelet Count 265, Potassium Level 5.1#, Red Blood Count 3.49L, Red Cell Distribution Width 12.9, Sodium Level 132#L, White Blood Count 10.45, Albumin 3.4, Lactic Acid Level 1.1, Phosphorus Level 4.1, Total Creatine Kinase 110 Impressions no change. in us f/u. Assessment to be transferred to skilled tomorrow. would like patient to continue with antidepressant but he is doubt ful of need. Plan dismiss to FORTUNATO Stauffer a.m., DO November 18, 2016 10:39
--- NOTE | 2016-11-18 15:14 | PT Daily Note Inpatient (E) ---
PT Daily Treatment Service Date/Time 11/18/16, 15:01 Medical Diagnosis: (1) Total knee replacement status ICD Code: Z96.659 Physical Therapy: Precaution/Isolation: Standard Precautions Resuscitation Status: Full Code Fall Level: Low Risk 25-50 Barriers Limiting Function: Activity Tolerance, Pain Subjective Pt sitting up in recliner. Pt frustrated that knee isn't bending further. Doesn't understand why knee still hurts so much. Oxygen Delivery: Room air O2 liters/minute: 0 Treatments Sit, Stand, Supine: Sitting, Long Sitting Extremity: Left Lower Extremity Assistance: AAROM, AROM Repetition: 2 x 10 Exercise: QS, Heel Slides, Hip Abduction, SLR, LAQ, Other (hamstring curls with yellow t-band.) Comment Manual therapy of AP/PA knee glides and stretching. Comment Supplied pt with a TG shape to help decrease knee swelling. Nursing instructed to take stocking off at night. Comment Nursing also instructed to allow pt to got to bathroom and be up in room independently as long as he feels steady on his feet. Pt to still call for assist if he isn't feeling well. Transfers Sit-Stand from bed: Complete Iron (from recliner and chair.) Stand-Sit: Complete Iron Pivot Transfers: Complete Iron (from recliner to chair with FWW.) Education/Plan Assessment Pt very cooperative with PT. Pain tolerance continues to limit his ROM. Safety Awareness: Intact Response to Treatment: Improving Plan Patient will be seen: Daily Thursday-Thursday Discharge Recommendations: Caregiver support Coding Time In: 2:28 Time Out: 3:07 Total Minutes: 39 Charges: 51435 Exercise Therp 15 m (23 minutes), 67856 Man Therp Tech 15 m (16) Alex Amaya DEHYDROGENATION OPERATOR November 18, 2016 15:14
--- NOTE | 2016-11-18 17:30 | OT Daily Note Inpatient (E) ---
OT Daily Treatment Service Date/Time 11/18/16, 17:23 Primary Diagnosis: (1) Total knee replacement status ICD Code: Z96.659 Treatment Diagnosis: (1) Weakness ICD Code: R53.1 Onset Date: 11/04/16 Start of Care Date: November 10, 2016 Precaution/Isolation: Standard Precautions Fall Level: Low Risk 25-50 Resuscitation Status: Full Code Pt reports his knee is sore, but he would like to get up and go for a walk. Pain Level: 10 Pain Location/Comment L knee, describes it as a constant sharp pain. Oxygen Needed: Room air O2 liters/minute: 0 Current Function Assessment Cognition Attention: Intact Visual/Perceptual Skills Glassess: Yes Hand Dominance Hand Dominance: Right Endurance Activity Endurance: Fair Bed Mobility/Transfers Sit to Stand: CGA Chair Transfer: CGA Completed sit to stand transfer with CGA. Pt completed functional mobility with SBA and FWW up and down hallway for a total of 260 feet. Required rest break at end of hallway with education on deep breathing to ease shortness of breath. During ambulation, discussed importance of bending at left knee and bearing weight through LLE. Following cueing, pt able to improve performance. Dressing Comment In sitting, pt participated in donning of shoes this date. Pt able to doff and tie shoes of R foot with modified independence following set up. Required assistance to don L shoe secondary to limited knee flexion. Max assistance to tie shoes. Provided pt option of flexible sock-aid. Following demonstration from pt, had pt trial sock-aid. Pt reports he likes the other sock-aid better. Brought pt's in and educated and discussed use of adaptive equipment including self defense instructor, dressing sticker and sock-aid. Provided information on where to obtain equipment if still needed at discharge. and pt verbalized understanding. Pt reports he likes the equipment and would be helpful when his is at work. Education/Assessment Education Provided: Assistive equipment (Provided education to pt and on adaptive equipment for lower body dressing. ), Other (Relaxation techniques to decrease pain. Pt was not receptive of this type of therapy) Education Evalution: Limited understanding, Unable to comprehend, Unable to return demo Readiness to Learn: Poor Barriers to Learning: Attitude toward rehab Treatment Tolerance: Bryson trmnt w/ complaints Problems Impacting Treatment: Balance, Pain Rehabilitation Potential: Good Good participation in therapy this date. Pt able to use adaptive lower body dressing with minimal assistance. POC Plan of Care Problems Identified: Activity Tolerance, ADLs, Balance, Lt UE Strength, Pain, Rt UE Strength, Sensation Plan: Evaluation-OT, ADL/Self Care Management, Therapy Exercises, Therapy Activities Frequency of OT: Five times weekly Duration of OT: 3 weeks Therapy to Include: ADL training, Manual therapy, Pt/family education, Therapeutic activities, UE coord. training, UE strengthing Discharge Recommendations: Caregiver support Pt. Aware of Dx and Prognosis: Yes Pt. Aware of Risk & Benefit: Yes Goals: Discussed with patient Short Term Goals STG Time Frame: 5 Days Will Dress Upper Extremity: With Setup/SBA (with self defense instructor and sock aid v/c) Will Dress Lower Extremity: With Min Assistance Will do Bathing: With Setup/SBA (washed all but feet, CGA for standing.) Will do Toileting: With Min Assistance Will Perform Funct Transfer: With Setup/SBA (CGA) STG #1 Pt will participate in 20 min of ther-ex with four or less rest breaks. STG #2 Pt will complete grooming tasks standing at sink with SBA. Transmitter Chief Goals LTG Time Frame: 3 Weeks Will Dress Upper Extremity: Independently Will Dress Lower Extremity: Independently Will do Tub/Shower Transfer: Independently Will Bathe Self: Independently Will do Toilet Transfers: Independently Will do Toilieting: Independently Will Perform Kitchen Mobility: Independently LTG # 1 Pt will participate in 5 minute functional standing task with demonstration of good safety awareness and modified independence. CPT/G Codes Time In: 13:19 Time Out: 13:54 Total Minutes: 35 CPT Codes: 98420 ADL EA () BIJU RM OT November 18, 2016 17:29
--- NOTE | 2016-11-18 17:38 | NUR ---
PRN Percocet given at this time for c/o L knee pain rated 6/10. Pt states "the pain never gets better. The pain pills and muscle relaxers just help me relax to fall asleep but the pain never goes down". Encouragement provided. Informed pt it may take some more time for his knee to start feeling better. Pt states "oh I sure hope so, or else I would have been better off with the old knee". TG shape placed on L knee per PT request. Pt ambulates to RR and back independently. PT informed pt he could ambulate independently now as long as he has either non-slip socks or shoes on. This nurse agrees with this recommendation. Denies needs.
[2016-11-18 19:57] VITALS: BP 113/65
[2016-11-18] MEDS: ATORVASTATIN 40 MG (LIPITOR) TABLET PO SCH (21:20)
--- NOTE | 2016-11-18 21:27 | NUR ---
Flexeril and Percocet administered per patient request. Still rates pain 10/10. Knee swelling slowly decreasing. No erythema noted. HS cares given. Call light within reach.
--- NOTE | 2016-11-19 00:24 | NUR ---
Voided 400 cc without difficulty. Ambulated to the bathroom and back without difficulty. Repositioned in bed. Call light within reach.
--- NOTE | 2016-11-19 02:02 | NUR ---
Percocet 2 tabs administered for discomfort in knee. Repositioned in bed. Call light within reach.
[2016-11-19] MEDS: oxyCODONE/ACETAMINOPHEN 5MG-325 MG (PERCOCET) TABLET PO PRN ×5 (02:04→21:11)
[2016-11-19] MEDS: CYCLOBENZAPRINE 10 MG (FLEXERIL) TAB PO PRN ×2 (03:58→21:10)
--- NOTE | 2016-11-19 06:29 | NUR ---
Rested at long intervals tonight. Ambulates to the bathroom with stand by assist. Slowly doing better. No concerns or needs at this time. Call light within reach.
[2016-11-19] MEDS: INSULIN LISPRO 1 UNIT/0.01 ML (HUMALOG) DOSE SC SCH ×4 (07:11→20:59)
[2016-11-19 08:11] VITALS: BP 111/72
[2016-11-19] MEDS: CARVEDILOL 6.25 MG (COREG) TAB PO SCH ×2 (08:12→18:03)
[2016-11-19] MEDS: DOCUSATE SODIUM 100 MG (COLACE) CAP PO SCH ×2 (08:12→20:53)
[2016-11-19] MEDS: RIVAROXABAN 10 MG (XARELTO) TABLET PO SCH (08:13)
[2016-11-19] MEDS: ASPIRIN 81 MG CHEW (LOW-DOSE) PO SCH (08:13)
[2016-11-19] MEDS: HYDROCHLOROTHIAZIDE 12.5 MG (HCTZ) TABLET PO SCH (08:13)
[2016-11-19] MEDS: GABAPENTIN 600 MG (NEURONTIN) TAB PO SCH ×3 (08:13→18:03)
[2016-11-19] MEDS: lisINopril 20 MG (PRINIVIL) TABLET PO SCH (08:13)
[2016-11-19] MEDS: DULoxetine 20 MG (CYMBALTA) CAP PO SCH ×2 (08:13→20:53)
[2016-11-19] MEDS: metFORMIN 1000 MG (GLUCOPHAGE) TABLET PO SCH ×2 (08:13→18:03)
[2016-11-19] MEDS: GLIMEPIRIDE 2 MG (AMARYL) TAB PO SCH (08:13)
[2016-11-19] MEDS: NS FLUSH 3 ML DAILY IV SCH (08:14)
[2016-11-19] MEDS: DICLOFENAC 1% GEL (VOLTAREN) 100 GM TUBE TOP SCH ×4 (08:14→21:13)
--- NOTE | 2016-11-19 14:17 | PT Daily Note Inpatient (E) ---
PT Daily Treatment Service Date/Time 11/19/16, 14:12 Medical Diagnosis: (1) Total knee replacement status ICD Code: Z96.659 Physical Therapy: Precaution/Isolation: Standard Precautions Resuscitation Status: Full Code Fall Level: Low Risk 25-50 Barriers Limiting Function: Activity Tolerance, Pain Subjective Pt just finished walking to and from tub with ORO to practice tub transfers, agrees to seated exercises followed by ice, c/o left posterior knee pain, "nothing is helping with pain" Pain Level: 10 Oxygen Delivery: Room air O2 liters/minute: 0 Treatments Sit, Stand, Supine: Long Sitting Extremity: Both Lower Extremity Assistance: AAROM, AROM Repetition: 1 x 15 Exercise: AP, QS, Heel Slides, Hip Abduction, SLR Gait held p.m. gait 2* to pt just walking with OT Education/Plan Education Education Needs: Breathing Technique holding breath with seated exercises, cueing for nasal breathing provided Assessment pt fatigued easily, pain persists at 10/10, TG applied to left knee to help with pain from inflammation Safety Awareness: Impaired Response to Treatment: Improving Plan Cont POC Patient will be seen: Daily Thursday-Thursday Discharge Recommendations: Caregiver support Coding Time In: 1400 Time Out: 1431 Total Minutes: 31 Charges: 08410 Comp Pump Apply (1 unit), 96294 Exercise Therp 15 m (1 unit) No Treatment Provide Reason: Secondary to nsg request ZARIA THAYER PTA November 19, 2016 14:16
--- NOTE | 2016-11-19 14:18 | OT Daily Note Inpatient (E) ---
OT Daily Treatment Service Date/Time 11/19/16, 14:12 Primary Diagnosis: (1) Total knee replacement status ICD Code: Z96.659 Treatment Diagnosis: (1) Weakness ICD Code: R53.1 Onset Date: 11/04/16 Start of Care Date: November 10, 2016 Precaution/Isolation: Standard Precautions Fall Level: Low Risk 25-50 Resuscitation Status: Full Code Current Activity: Agrees to participate Pt reports he did not sleep very well. States his knee feels more swollen and feels like he is back to where he started with therapy. Pain Level: 10 Pain Location/Comment LLE Oxygen Needed: Room air O2 liters/minute: 0 Current Function Assessment Cognition Attention: Intact Visual/Perceptual Skills Glassess: Yes Hand Dominance Hand Dominance: Right Bed Mobility/Transfers Completed transfer from chair with SBA. Educated and discussed bending L knee when transferring. Dressing Comment Following showering task, pt participated in dressing. Educated and use of slitting and shipping supervisor to assist with lower body dressing and thread LLE first. Following education, pt able to don underwear and shorts with modified independence and pull up over hips with no noted LOB and SBA. Completed donning of socks following set up with use of sock aid. Able to don shirt with independence. Pt in chair with call light in place following session. Bathing Completed functional mobility to bathroom with SBA and FWW. Able to doff socks with dressing stick and shorts and shirt with modified independence. Pt able to complete showering task with use of long handled sponge with modified independence. Education/Assessment Education Provided: Assistive equipment, Other Education Evalution: Limited understanding, Unable to comprehend, Unable to return demo Readiness to Learn: Poor Barriers to Learning: Attitude toward rehab Treatment Tolerance: Bryson trmnt w/ complaints Problems Impacting Treatment: Balance, Pain Rehabilitation Potential: Good Pt able to complete bathing and dressing with modified independence following set up. Requires cueing to bend at knee during transfers. POC Plan of Care Problems Identified: Activity Tolerance, ADLs, Balance, Lt UE Strength, Pain, Rt UE Strength, Sensation Plan: Evaluation-OT, ADL/Self Care Management, Therapy Exercises, Therapy Activities Frequency of OT: Five times weekly Duration of OT: 3 weeks Therapy to Include: ADL training, Manual therapy, Pt/family education, Therapeutic activities, UE coord. training, UE strengthing Discharge Recommendations: Caregiver support Pt. Aware of Dx and Prognosis: Yes Pt. Aware of Risk & Benefit: Yes Goals: Discussed with patient Short Term Goals STG Time Frame: 5 Days Will Dress Upper Extremity: With Setup/SBA (with slitting and shipping supervisor and sock aid v/c) Will Dress Lower Extremity: With Min Assistance (GOAL MET.) Will do Bathing: With Setup/SBA (washed all but feet, CGA for standing.) Will do Toileting: With Min Assistance Will Perform Funct Transfer: With Setup/SBA (CGA) STG #1 Pt will participate in 20 min of ther-ex with four or less rest breaks. STG #2 Pt will complete grooming tasks standing at sink with SBA. Intermediate Goals LTG Time Frame: 3 Weeks Will Dress Upper Extremity: Independently Will Dress Lower Extremity: Independently Will do Tub/Shower Transfer: Independently Will Bathe Self: Independently Will do Toilet Transfers: Independently Will do Toilieting: Independently Will Perform Kitchen Mobility: Independently LTG # 1 Pt will participate in 5 minute functional standing task with demonstration of good safety awareness and modified independence. CPT/G Codes Time In: 9:18 Time Out: 10:03 Total Minutes: 47 ( ADL) CPT Codes: 29615 ADL EA () BIJU RM OT November 19, 2016 14:18
--- NOTE | 2016-11-19 15:12 | PT Daily Note Inpatient (E) ---
PT Daily Treatment Service Date/Time 11/19/16, 15:07 Medical Diagnosis: (1) Total knee replacement status ICD Code: Z96.659 Physical Therapy: Precaution/Isolation: Standard Precautions Resuscitation Status: Full Code Fall Level: Low Risk 25-50 Barriers Limiting Function: Activity Tolerance, Pain Subjective Patient resting in chair with LLE elevated. Patient reports pain as a 10/10 and continues to report tightness in left knee. He is wearing TG shape compression stocking on LLE this date. Edema continues to be present in left knee, however no signs of infection noted. Oxygen Delivery: Room air O2 liters/minute: 0 Treatments Sit, Stand, Supine: Supine, Sitting Extremity: Left Lower Extremity Repetition: 2 x 10 Exercise: Heel Slides, SLR, SAQ Comment Assessed patient's ability to complete step ups to a 6 inch step x 4 reps CGA/ SBA using FWW for support. Gait Toilet transfer and clothing management with modified independence. Education/Plan Education Patient educated on the progress he has made. Assessment Patient is demonstrating improved transfer ability, knee flexion improved to 65 degrees actively. He continues to c/o knee tightness however no abnormal findings noted with palpation or patellar mobility. Plan Continue to progress ROM/ strengthening and due to patinet's improved transfer ability and ambulation tolerance recommend discharge planning. Patient will be seen: Daily Thursday-Thursday Discharge Recommendations: Caregiver support Coding Time In: 1119 Time Out: 1206 Total Minutes: 47 Charges: 67837 Exercise Therp [address] PT November 19, 2016 15:12
[2016-11-19] MEDS: ONDANSETRON 4 MG (ZOFRAN) ORAL DISSOLVE TAB PO PRN (15:25)
--- NOTE | 2016-11-19 17:04 | OT Daily Note Inpatient (E) ---
OT Daily Treatment Service Date/Time 11/19/16, 16:52 Primary Diagnosis: (1) Total knee replacement status ICD Code: Z96.659 Treatment Diagnosis: (1) Weakness ICD Code: R53.1 Onset Date: 11/04/16 Start of Care Date: November 10, 2016 Precaution/Isolation: Standard Precautions Fall Level: Low Risk 25-50 Resuscitation Status: Full Code Current Activity: Agrees to participate, Asleep, easily aroused, Up in chair Pt states his thigh is hurting and something is not right. Pain Level: 10 Pain Location/Comment knee and thigh Oxygen Needed: Room air O2 liters/minute: 0 Current Function Assessment Mental Status Mental Status: Cooperative Cognition Attention: Intact Visual/Perceptual Skills Glassess: Yes Hand Dominance Hand Dominance: Right Endurance Activity Endurance: Requires freq rest breaks Pt required 2 standing rest breaks in hallway for functional mobility with FWW/ CGA from room to tub room Bed Mobility/Transfers Sit to Stand: SBA Chair Transfer: CGA Sitting Balance: WFL Dressing Dressing Lower Body w Assist: Doff sock, Don shoe Comment Pt able to doff socks with oyster buyer and don socks with sock aid with SBA. she was able to don R shoe with SBa but min/mod A for donning L shoe/brace. Bathing Shower/Bench Transfer Ability: Setup/SBA Pt educated in tub bench transfers for increased safety for return to home. Handout was provided for step by step instruction for future use. Education/Assessment Education Provided: Assistive equipment (Pt education with for adaptive equipment for toilet, tub, diabetic care, grab bars LE dressing equip with resources), Home management/safety, Other Education Evalution: Demonstrate understanding, Family included, Limited understanding, Unable to comprehend, Unable to return demo Teaching Method: Demonstration, Handout, Practice/repetition, Verbal Readiness to Learn: Poor Treatment Tolerance: Bryson trmnt w/o complaints Problems Impacting Treatment: Balance, Pain Rehabilitation Potential: Good Pt was educated in multiple adaptive equipment for increasing safety in home with resources that will fit their finance budget. Pt education for equipment that will work for a rental home and not permanent dwelling. POC Plan of Care Problems Identified: Activity Tolerance, ADLs, Balance, Lt UE Strength, Pain, Rt UE Strength, Sensation Plan: Evaluation-OT, ADL/Self Care Management, Therapy Exercises, Therapy Activities Frequency of OT: Five times weekly Duration of OT: 3 weeks Therapy to Include: ADL training, Manual therapy, Pt/family education, Therapeutic activities, UE coord. training, UE strengthing Discharge Recommendations: Caregiver support Pt. Aware of Dx and Prognosis: Yes Pt. Aware of Risk & Benefit: Yes Goals: Discussed with patient Short Term Goals STG Time Frame: 5 Days Will Dress Upper Extremity: With Setup/SBA (with oyster buyer and sock aid v/c) Will Dress Lower Extremity: With Min Assistance (GOAL MET.) Will do Bathing: With Setup/SBA (washed all but feet, CGA for standing.) Will do Toileting: With Min Assistance Will Perform Funct Transfer: With Setup/SBA (CGA) STG #1 Pt will participate in 20 min of ther-ex with four or less rest breaks. STG #2 Pt will complete grooming tasks standing at sink with SBA. Fiscal Clerk Goals LTG Time Frame: 3 Weeks Will Dress Upper Extremity: Independently Will Dress Lower Extremity: Independently Will do Tub/Shower Transfer: Independently (SBA) Will Bathe Self: Independently Will do Toilet Transfers: Independently Will do Toilieting: Independently Will Perform Kitchen Mobility: Independently LTG # 1 Pt will participate in 5 minute functional standing task with demonstration of good safety awareness and modified independence. CPT/G Codes Time In: 1314 Time Out: 1353 Total Minutes: 39 CPT Codes: 86344 ADL Zakiya Bundy November 19, 2016 17:04
--- NOTE | 2016-11-19 18:33 | NUR ---
Uneventful day shift. Patient requires PRN Percocet Q4 for c/o left knee pain. Participates well with therapies. BERT hose applied to left knee for swelling. Incision with steri strips intact, no redness. PRN Zofran provided at 1525 for c/o nausea after PT. Sitting up in recliner with legs elevated at this time. Call light in reach.
--- NOTE | 2016-11-19 20:00 | NUR ---
Resting in recliner chair watching TV with . Comfortable at present. Still has some swelling in knee. No erythema. SL slightly reddened and removed without difficulty. No concerns at this time. Would like Laxative in the morning. Still has some nausea. Call light within reach.
[2016-11-19 20:13] VITALS: BP 114/66
[2016-11-19] MEDS: ATORVASTATIN 40 MG (LIPITOR) TABLET PO SCH (20:54)
--- NOTE | 2016-11-19 22:10 | NUR ---
Percocet 5mg tabs x2 administered per patient request along with Flexeril. Repositioned in bed. Patient moving well. No other concerns or needs at this time. Call light within reach.
[2016-11-20] MEDS: oxyCODONE/ACETAMINOPHEN 5MG-325 MG (PERCOCET) TABLET PO PRN ×4 (05:42→23:38)
--- NOTE | 2016-11-20 05:42 | NUR ---
Percocet 5mg x 2 tabs administered for knee pain. Ambulates to the bathroom using walker by himself. Gait steady. Denies nausea this morning. Cooperative with cares. No other needs at this time. Call light within reach.
--- NOTE | 2016-11-20 06:28 | NUR ---
Accu Check 84mg/dl. No SSI needed.
[2016-11-20] MEDS: INSULIN LISPRO 1 UNIT/0.01 ML (HUMALOG) DOSE SC SCH ×4 (07:06→21:00)
[2016-11-20 08:17] VITALS: BP 139/72
[2016-11-20] MEDS: NS FLUSH 3 ML DAILY IV SCH (09:00)
[2016-11-20] MEDS: ASPIRIN 81 MG CHEW (LOW-DOSE) PO SCH (09:18)
[2016-11-20] MEDS: GABAPENTIN 600 MG (NEURONTIN) TAB PO SCH ×3 (09:18→17:41)
[2016-11-20] MEDS: CARVEDILOL 6.25 MG (COREG) TAB PO SCH ×2 (09:18→17:41)
[2016-11-20] MEDS: DULoxetine 20 MG (CYMBALTA) CAP PO SCH ×2 (09:18→21:05)
[2016-11-20] MEDS: DOCUSATE SODIUM 100 MG (COLACE) CAP PO SCH ×2 (09:18→21:05)
[2016-11-20] MEDS: RIVAROXABAN 10 MG (XARELTO) TABLET PO SCH (09:19)
[2016-11-20] MEDS: metFORMIN 1000 MG (GLUCOPHAGE) TABLET PO SCH ×2 (09:19→17:41)
[2016-11-20] MEDS: GLIMEPIRIDE 2 MG (AMARYL) TAB PO SCH (09:19)
[2016-11-20] MEDS: HYDROCHLOROTHIAZIDE 12.5 MG (HCTZ) TABLET PO SCH (09:19)
[2016-11-20] MEDS: lisINopril 20 MG (PRINIVIL) TABLET PO SCH (09:19)
[2016-11-20] MEDS: DICLOFENAC 1% GEL (VOLTAREN) 100 GM TUBE TOP SCH ×4 (09:23→21:00)
--- NOTE | 2016-11-20 09:30 | NUR ---
Pt sitting up in chair at this time. Just returned from shower. Laughing and joking with this nurse. Skin warm, dry, intact. Incision well approximated, steri strips intact. No redness noted. When asked how he would rate his pain, pt states "oh probably 9 or 10, I just can't handle it". Will provide pain medicine when available. Resprs nonlabored, even on RA. Pt denies other needs.
--- NOTE | 2016-11-20 10:45 | NUR ---
PRN Percocet given at this time for c/o L knee pain rated 9/10. Pt is currently working with PT. Denies other needs.
--- NOTE | 2016-11-20 11:11 | NUR ---
Nutrition Follow Up: Patient is eating 100% at most meals. He is participating in therapy but continues to c/o knee pain. Blood sugars remain well controlled. Weight today: N/A Labs: glucose 78-122 1. Will continue previously recommended nutrition interventions, including emphasis on protein for healing. 2. Recommend we get a weight on patient to compare with admission. Will request from nursing.
--- NOTE | 2016-11-20 12:10 | OT Daily Note Inpatient (E) ---
OT Daily Treatment Service Date/Time 11/20/16, 12:03 Primary Diagnosis: (1) Total knee replacement status ICD Code: Z96.659 Treatment Diagnosis: (1) Weakness ICD Code: R53.1 Onset Date: 11/04/16 Start of Care Date: November 10, 2016 Precaution/Isolation: Standard Precautions Fall Level: Low Risk 25-50 Resuscitation Status: Full Code Current Activity: Agrees to participate, Up in chair It just wont bend, my thigh is so tight Pain Level: 10 Oxygen Needed: Room air O2 liters/minute: 0 Current Function Assessment Mental Status Mental Status: Alert, Appropriate, Cooperative Cognition Attention: Intact Visual/Perceptual Skills Glassess: Yes Hand Dominance Hand Dominance: Right Bed Mobility/Transfers Sit to Stand: SBA Chair Transfer: SBA Sitting Balance: WFL Pt able to transfer out of low chair, recliner with SBA Dressing Comment Pt required assistance for donning affected side brace and shoe Toileting Toilet Transfer Ability: Setup/SBA (Education for home transfers. appying non skid mat) Additional Assessment/Comments Functional mobility SBA/FWW from room to end of hallway 100' with one seated rest break. Pt was given massage, myafascia release and vibration to decrease pain in upper thigh Education/Assessment Education Provided: Assistive equipment (Pt education with for adaptive equipment for toilet, tub, diabetic care, grab bars LE dressing equip with resources), Home management/safety, Other (Pt education with handout for foot care for diabetes) Education Evalution: Demonstrate understanding, Family included, Limited understanding, Unable to comprehend, Unable to return demo Teaching Method: Demonstration, Handout, Practice/repetition, Verbal Readiness to Learn: Poor Treatment Tolerance: Bryson trmnt w/o complaints Problems Impacting Treatment: Balance, Pain Rehabilitation Potential: Good Pt tolerated tx with pain. Able to sit to stand SBA and AMB with FWW at SBA POC Plan of Care Problems Identified: Activity Tolerance, ADLs, Balance, Lt UE Strength, Pain, Rt UE Strength, Sensation Plan: Evaluation-OT, ADL/Self Care Management, Therapy Exercises, Therapy Activities Frequency of OT: Five times weekly Duration of OT: 3 weeks Therapy to Include: ADL training, Manual therapy, Pt/family education, Therapeutic activities, UE coord. training, UE strengthing Discharge Recommendations: Caregiver support Pt. Aware of Dx and Prognosis: Yes Pt. Aware of Risk & Benefit: Yes Goals: Discussed with patient Short Term Goals STG Time Frame: 5 Days Will Dress Upper Extremity: With Setup/SBA (with mental health aide and sock aid v/c) Will Dress Lower Extremity: With Min Assistance (GOAL MET.) Will do Bathing: With Setup/SBA (washed all but feet, CGA for standing.) Will do Toileting: With Min Assistance Will Perform Funct Transfer: With Setup/SBA (CGA) STG #1 Pt will participate in 20 min of ther-ex with four or less rest breaks. MET STG #2 Pt will complete grooming tasks standing at sink with SBA. not receptive to grooming Household Appliance Installer Goals LTG Time Frame: 3 Weeks Will Dress Upper Extremity: Independently (met) Will Dress Lower Extremity: Independently (min for L shoe brace) Will do Tub/Shower Transfer: Independently (SBA) Will Bathe Self: Independently (met) Will do Toilet Transfers: Independently (SBA) Will do Toilieting: Independently Will Perform Kitchen Mobility: Independently LTG # 1 Pt will participate in 5 minute functional standing task with demonstration of good safety awareness and modified independence. CPT/G Codes Time In: 933 Time Out: 1007 Total Minutes: 34 CPT Codes: 68852 ADL EA Zakiya Toledo November 20, 2016 12:10
--- NOTE | 2016-11-20 13:02 | PT Daily Note Inpatient (E) ---
PT Daily Treatment Service Date/Time 11/20/16, 13:00 Medical Diagnosis: (1) Total knee replacement status ICD Code: Z96.659 Physical Therapy: Precaution/Isolation: Standard Precautions Resuscitation Status: Full Code Fall Level: Low Risk 25-50 Barriers Limiting Function: Activity Tolerance, Pain Subjective Pt sitting up in recliner. States he knee is still stiff and sore. Frustrated with lack of progress. Agrees to therapy. Walked with OT in hallway. Oxygen Delivery: Room air O2 liters/minute: 0 Treatments Sit, Stand, Supine: Long Sitting Extremity: Left Lower Extremity Comment Manual therapy of patella mobs, scar massage, and AP/PA knee glides to decrease hypersensitivity. Education/Plan Education Patient educated on the progress he has made. Assessment Pt demonstrated decreased sensitivity around patella after manual therapy. Plan Patient will be seen: Daily Thursday-Thursday Discharge Recommendations: Caregiver support Coding Time In: 10:28 Time Out: 11:03 Total Minutes: 35 Charges: 53154 Man Therp Tech 15 m (35 minutes) Alex Amaya PTA November 20, 2016 13:02
--- NOTE | 2016-11-20 16:39 | PT Daily Note Inpatient (E) ---
PT Daily Treatment Service Date/Time 11/20/16, 16:35 Medical Diagnosis: (1) Total knee replacement status ICD Code: Z96.659 Physical Therapy: Precaution/Isolation: Standard Precautions Resuscitation Status: Full Code Fall Level: Low Risk 25-50 Barriers Limiting Function: Activity Tolerance, Pain Subjective Patient reclined in chair. Willing to participate in therapy. C/o left knee pain and tightness but did have a pain pill prior to session. Oxygen Delivery: Room air O2 liters/minute: 0 Treatments Assistance: AAROM, AROM, PROM, Stretching Repetition: Other (3x10) Comment Prone knee flexion AROM, AAROM working to improve hamstring recruitment. Comment seated edge of bed knee flex/ext. Transfers Sit-Stand from bed: Modified Cobb Stand-Sit: Modified Cobb Gait Ambulation: Modified Cobb Distance Walked: Around room. Assistive Device: FWW Education/Plan Education Patient educated on the progress he has made, the healing process and that he is still early on in his recovery. Assessment Patient allowed PT to complete more stretching this date with less pain complaints. He demonstrates improve knee flexion AROM following stretching. PT applied ice pack to posterior and anterior left knee joint. Plan Patient will be seen: Daily Thursday-Thursday Discharge Recommendations: Caregiver support Coding Time In: 1325 Time Out: 1412 Total Minutes: 47 Charges: 83072 Exercise Therp [address] PT November 20, 2016 16:39
--- NOTE | 2016-11-20 18:16 | NUR ---
Pt has rested most of the afternoon. Sitting up in chair at this time. Skin warm, dry, intact. L knee appears somewhat more bruised than previously in shift. Pt states with a grimace, "PT really worked me over this afternoon". No redness noted. Pt rates pain 7/10 but denies need for pain meds. Says "I'd rather wait and take some closer to bedtime". Resprs nonlabored, even on RA. Pt denies other needs.
[2016-11-20 19:40] VITALS: BP 126/70
[2016-11-20] MEDS: ATORVASTATIN 40 MG (LIPITOR) TABLET PO SCH (21:05)
[2016-11-20] MEDS: CYCLOBENZAPRINE 10 MG (FLEXERIL) TAB PO PRN (21:05)
[2016-11-21] MEDS: oxyCODONE/ACETAMINOPHEN 5MG-325 MG (PERCOCET) TABLET PO PRN ×3 (03:59→13:27)
--- NOTE | 2016-11-21 06:09 | NUR ---
Uneventful shift. Pt rests intermittently throughout the night. PRN percocet provided for pain. Resp even and non labored on RA. Independent in room. No needs at this time.
[2016-11-21] MEDS: INSULIN LISPRO 1 UNIT/0.01 ML (HUMALOG) DOSE SC SCH ×2 (06:34→11:30)
[2016-11-21] MEDS ORDERED: DULO20CA PO (07:15)
[2016-11-21] MEDS ORDERED: CYCL10TA45 PO (07:18)
[2016-11-21] MEDS ORDERED: RIVA10TA2 PO (07:18)
[2016-11-21] MEDS ORDERED: OXYC1TAB12 PO (07:18)
--- NOTE | 2016-11-21 07:21 | Discharge Instructions (E) ---
Discharge Instructions Instructions Continue medications as prescribed Keep appt with Dr Chavez ortho Contact Dr Mejia for any questions or concerns Activity Instructions as tolerates Use front wheeled walker Doctor's Appointment Keep appt with Ortho Doctor Discharge Diet: Carbohydrate controlled Gail Sheehan APRN November 21, 2016 07:21
--- NOTE | 2016-11-21 07:25 | Discharge Summary (E FT) ---
Discharge Summary (E FT) Admit Date November 08, 2016 at 10:45 Discharge Date November 21, 2016 Admitting Provider Rajendra Mcaias DO Primary Care Provider Brandon Mejia MD Attending Provider Rajendra Macias DO Consulting Provider Hospital Course Summary PCP: Brandon Mejia MD CC: "Post-op inpt rehab for left total knee arthroplasty" HPI: This is a 61 y/o M who was transferred from [facility] POD #4 for left total knee replacement for severe OA after failing multiple conservative options. He has been rehabbing in [place] and reports continual pain in the left thigh and proximal knee. Requested transfer to this facility as he lives in [facility]. He continues to report decreased ROM and swelling. States he is doing PT with minimal improvement, but continues to work with them. Reports having some frustration with progress, but is willing to continue to work with rehab. Besides this he states he is doing well. He has done well- still frustrated a bit about knee flexion . No new issues today- eating well left knee incision healing well- steristrips in place Vital Signs Date Time Temp Pulse Resp B/P Pulse Ox O2 Delivery O2 Flow Rate FiO2 11/20/16 19:40 97.6 76 16 126/70 92 Room air 11/15/16 08:18 0.00 I & O Past 24 hrs 11/21/16 07:00 Intake Total 2171 ml Output Total 2700 ml Balance -529 ml Intake Oral 2171 ml Output Urine Total 2700 ml # Bowel Movements 1 GEN: Interactive, oriented. Doing well with PT. Up in halls more with use of walker for gait stability HEENT: EOMI, clear sclerae, moist oral mucosa. CV: Regular without murmur. PULM: CTA B with no R/R/W. ABD: Soft, NT/ND with normal bowel sounds. EXTR: Left knee incision dry intact less swelling, steri strips in place, no drainage INTEG: No rash. Resolving bruising around site of knee surgery. Incision C/D/I. MS: Left knee incision NEURO: No focal motor neuro deficit. Lab-Past 14 Days, 35 Results 11/09/16 05:30: Anion Gap 14.8, BUN/Creatinine Ratio 27H, Basophils # (Auto) 0.0, Basophils (%) (Auto) 0, Blood Urea Nitrogen 29H, Calcium Level 9.2, Carbon Dioxide Level 28, Chloride Level 102, Creatinine 1.08, Eosinophils # (Auto) 0.2, Eosinophils (%) ( Auto) 2, Estimat Glomerular Filtration Rate 84.4, Estimated GFR (Non- 69.7, Glucose Level 87#, Hematocrit 29.50L, Hemoglobin 10.0L, Lymphocytes # (Auto) 2.1, Lymphocytes (%) (Auto) 24, Mean Corpuscular Hemoglobin 30.5, Mean Corpuscular Hemoglobin Concent 33.9, Mean Corpuscular Volume 90, Mean Platelet Volume 8.8, Monocytes # (Auto) 1.1, Monocytes (%) (Auto ) 12H, Neutrophils # (Auto) 5.4, Neutrophils (%) (Auto) 61, Platelet Count 206, Potassium Level 4.2, Red Blood Count 3.28L, Red Cell Distribution Width 13.0, Sodium Level 141, White Blood Count 8.84 ASSESSMENT Thomas Skaggs is a 61 year old male admitted to detention 11/08 as a transfer from [facility] where had left total knee replacement. He had swelling and increased pain which made rehab challenging. He has several chronic problems. PLAN * Left knee pain, Left thigh pain, S/P Left knee replacement: Initially he had only modest improvement with escalation of pain medication regimen. 11/10, screened for signs of DVT, infection, compartment syndrome, but all this workup was reassuring. Streamlined regimen 11/10 with increased oxycodone/ acetaminophen * Left Leg Swelling: Improving. Leg sono negative for DVT or signs of hematoma. Does have a seroma about the left knee. Observe. * Nausea: resolved * Physical Deconditioning, OA: PT/OT - continue front wheeled walker for gait stability * F/E/N: Diabetic diet. * Prophylaxis: Rivaroxaban- per ortho for a total of 30 days * Code Status: Full * Dispo: Home today to continue OP PT/OT- front wheeled walker for gait stability , Appt Dr Chavez November 26. CHRONIC ISSUES * CAD: Aspirin * HLD: Atorvastatin * HTN: Carvedilol, HCTZ, Lisinopril * Constipation: Bowel regimen * Chronic Pain, Diabetic Peripheral Neuropathy: Gabapentin * Diabetes Mellitus Type II: Glimepiride, metformin Discharge Disposition Home today with family He will need a front wheeled walker for Gait instability, DJD S/P Left total knee replacement Continue PT/OT at home New Medications: Cyclobenzaprine HCl (Flexeril) 10 Mg Tablet 10 MG PO TID PRN muscle spasms #30 TAB Duloxetine HCl (Cymbalta) 20 Mg Capsule.dr 20 MG PO BID #60 CAP Continued Medications: Acetaminophen (Acetaminophen) 325 Mg Tab 650 MG PO Q6H PRN PAIN #0 Ref 0 TAB Atorvastatin Calcium (Atorvastatin Calcium) 40 Mg Tablet 40 MG PO HS Carvedilol (Carvedilol) 6.25 Mg Tablet 6.25 MG PO BID WITH MEALS TAB Gabapentin (Gabapentin) 300 Mg Capsule 300 MG PO TID CAP Glimepiride (Glimepiride) 1 Mg Tablet 1 MG PO DAILY Lisinopril/Hydrochlorothiazide (Lisinopril-HCTZ 20-12.5 mg Tab) 1 Each Tablet 1 TAB PO DAILY TAB Metformin HCl (Metformin HCl) 1,000 Mg Tablet 1000 MG PO BID WITH MEALS TAB Nitroglycerin (Nitroglycerin) 0.4 Mg Tab.subl 0.4 MG SL Q15M PRN CHEST PAIN Oxycodone HCl/Acetaminophen (Percocet 10mg/325mg) 1 Tab Tablet 1 TAB PO Q4H PRN MODERATE PAIN #30 Ref 0 TAB (This prescription has been renewed ) Polyethylene Glycol 3350 (Miralax) 17 Gm Powd.pack 17 GM PO BID Constipation Ref 0 PKT Rivaroxaban (Xarelto) 10 Mg Tablet 10 MG PO DAILY #15 TAB (This prescription has been renewed) Tamsulosin HCl (Flomax) 0.4 Mg Cap 0.4 MG PO DAILY@1000 Bph Ref 0 CAP Tramadol HCl (Tramadol HCl) 50 Mg Tablet 50 MG PO Q4H PRN MILD PAIN Ref 0 TAB Discontinued Medications: Methocarbamol (Robaxin) 500 Mg Tablet 750 MG PO TID PRN SPASMS Ref 0 TAB Methylprednisolone (Medrol) 4 Mg Tab 4 MG PO Q6H Inflammation Ref 0 TAB Follow up Instructions Continue medications as prescribed Keep appt with Dr Chavez ortho Contact Dr Mejia for any questions or concerns Copies to: End of Report . Gail Sheehan [employer] November 21, 2016 07:25
[2016-11-21] MEDS: DULoxetine 20 MG (CYMBALTA) CAP PO SCH (08:17)
[2016-11-21] MEDS: DOCUSATE SODIUM 100 MG (COLACE) CAP PO SCH (08:17)
[2016-11-21] MEDS: CARVEDILOL 6.25 MG (COREG) TAB PO SCH (08:17)
[2016-11-21] MEDS: ASPIRIN 81 MG CHEW (LOW-DOSE) PO SCH (08:17)
[2016-11-21] MEDS: lisINopril 20 MG (PRINIVIL) TABLET PO SCH (08:17)
[2016-11-21] MEDS: HYDROCHLOROTHIAZIDE 12.5 MG (HCTZ) TABLET PO SCH (08:17)
[2016-11-21] MEDS: metFORMIN 1000 MG (GLUCOPHAGE) TABLET PO SCH (08:17)
[2016-11-21] MEDS: GABAPENTIN 600 MG (NEURONTIN) TAB PO SCH ×2 (08:17→13:26)
[2016-11-21] MEDS: RIVAROXABAN 10 MG (XARELTO) TABLET PO SCH (08:17)
[2016-11-21] MEDS: GLIMEPIRIDE 2 MG (AMARYL) TAB PO SCH (08:19)
--- NOTE | 2016-11-21 08:20 | NUR ---
Pt resting in bed at this time, joking with this nurse. Skin warm, dry, intact. Resprs nonlabored, even on RA. When asked how his pain is, pt states "I hate to say it's a 10 all the time, but that knee just hurts". PRN Percocet given at this time. Steri strips intact to L knee. OT here to work with patient. Will continue to monitor.
[2016-11-21 08:21] VITALS: BP 111/73
[2016-11-21] MEDS: NS FLUSH 3 ML DAILY IV SCH (08:21)
[2016-11-21] MEDS: DICLOFENAC 1% GEL (VOLTAREN) 100 GM TUBE TOP SCH ×2 (08:22→13:00)
--- NOTE | 2016-11-21 13:28 | OT Daily Note Inpatient (E) ---
OT Daily Treatment Service Date/Time 11/21/16, 13:28 Primary Diagnosis: (1) Total knee replacement status ICD Code: Z96.659 Treatment Diagnosis: (1) Weakness ICD Code: R53.1 Onset Date: 11/04/16 Start of Care Date: November 10, 2016 Precaution/Isolation: Standard Precautions Fall Level: Low Risk 25-50 Resuscitation Status: Full Code Current Activity: Agrees to participate Pt reports leg feels very sore this morning. Does not think the therapy has helped that much. Pain Level: 10 Pain Location/Comment L knee. Oxygen Needed: Room air O2 liters/minute: 0 Current Function Assessment Cognition Attention: Intact Visual/Perceptual Skills Glassess: Yes Hand Dominance Hand Dominance: Right Dressing Comment In sitting, pt participated in lower body dressing. Able to don bilateral socks with independence. Required assistance to don L sock secondary to decreased knee flexion. Provided resources on where to obtain sock-aid and translator and interpreter. Bathing Pt worked on simulated tub transfer this date. Practice with simulated and transfer style bench and bringing legs over tub. Following demonstration and education from therapist, pt able to complete with SBA. Provided education to on transfer style tub bench and toilet rails to improve safety with transfers during toileting and bathing. verbalized understanding. Toileting Able to complete toilet transfer with SBA and use of grab bars. Educated on installing or applying grab bars around toilet. Education/Assessment Education Provided: Assistive equipment (Pt education with for adaptive equipment for toilet, tub, diabetic care, grab bars LE dressing equip with resources), Home management/safety, Other (Pt education with handout for foot care for diabetes) Education Evalution: Demonstrate understanding, Family included, Limited understanding, Unable to comprehend, Unable to return demo Teaching Method: Demonstration, Handout, Practice/repetition, Verbal Readiness to Learn: Poor Treatment Tolerance: Bryson trmnt w/o complaints Problems Impacting Treatment: Balance, Pain Rehabilitation Potential: Good Pt would benefit from a transfer style tub bench and grab bars around toilet to improve safety and independence with bathing and toileting tasks. POC Plan of Care Problems Identified: Activity Tolerance, ADLs, Balance, Lt UE Strength, Pain, Rt UE Strength, Sensation Plan: Evaluation-OT, ADL/Self Care Management, Therapy Exercises, Therapy Activities Frequency of OT: Five times weekly Duration of OT: 3 weeks Therapy to Include: ADL training, Manual therapy, Pt/family education, Therapeutic activities, UE coord. training, UE strengthing Discharge Recommendations: Caregiver support Pt. Aware of Dx and Prognosis: Yes Pt. Aware of Risk & Benefit: Yes Goals: Discussed with patient Short Term Goals STG Time Frame: 5 Days Will Dress Upper Extremity: With Setup/SBA (with translator and interpreter and sock aid v/c) Will Dress Lower Extremity: With Min Assistance (GOAL MET.) Will do Bathing: With Setup/SBA (washed all but feet, CGA for standing.) Will do Toileting: With Min Assistance Will Perform Funct Transfer: With Setup/SBA (CGA) STG #1 Pt will participate in 20 min of ther-ex with four or less rest breaks. MET STG #2 Pt will complete grooming tasks standing at sink with SBA. not receptive to grooming Shelter Goals LTG Time Frame: 3 Weeks Will Dress Upper Extremity: Independently (met) Will Dress Lower Extremity: Independently (min for L shoe brace) Will do Tub/Shower Transfer: Independently (SBA) Will Bathe Self: Independently (met) Will do Toilet Transfers: Independently (SBA) Will do Toilieting: Independently Will Perform Kitchen Mobility: Independently LTG # 1 Pt will participate in 5 minute functional standing task with demonstration of good safety awareness and modified independence. CPT/G Codes Time In: 8:20 Time Out: 9:00 Total Minutes: 40 ( ADL) CPT Codes: 46742 ADL EA ( ADL) BIJU RM OT November 21, 2016 13:28
--- NOTE | 2016-11-21 15:04 | NUR ---
DC instructions reviewed with patient and spouse, demonstrates understanding. Belongings gathered. Skin warm dry, intact. Resprs nonlabored, even on RA. Steri strips intact to L knee. Pt ambulates with walker from recliner to w/c. Pt dismissed at this time via w/c accompanied by CNAs and . Pt very appreciative of cares, states "there's no comparison between the care I got here and the hospital I was at before. The care here is so much more personable". Belongings, DC packet, and scripts sent with patient.
--- NOTE | 2016-11-21 15:17 | Physical Therapy Evaluation(E) ---
Discharge Summary Service Date/Time 11/21/16, 15:02 Primary Diagnosis: (1) Total knee replacement status ICD Code: Z96.659 Treatment Diagnosis: (1) Left knee pain (2) Abrasion of left knee (3) Weakness ICD Code: R53.1 (4) Back pain ICD Code: M54.9 (5) Diabetic peripheral neuropathy ICD Code: 250.60 (6) Total knee replacement status ICD Code: Z96.659 Onset Date: 11/04/2016 Start of Service Date: November 08, 2016 Summary of Progress Summary Comment The patient's left knee pain continues to be problematic with patient reporting 10/10 in left knee joint near patella and stiffness. He has demonstrated significant improvements in transfer ability completing sit to stand transfers, bed mobility, and ambulation with modified independence. He is able ambulate approximately 200 feet with FWW prior to fatigue. Left knee AROM lacking 5 degrees extension and flexion AROM to 71 degrees. Patient continues to demonstrate difficulty with proper quadriceps/hamstring firing and compensates hip flexors and IT band. Patient's prior left knee injury 40 years ago with nerve damage and presence of peripheral neuropathy may be contributing factors to increased pain at the left knee. Patient demonstrates the ability to traverse 6 inch step with bilateral upper extremity support with SBA. He would benefit from additional therapy services to continue his rehabilitation following his left TKA on an outpatient basis. He has been educated to continue with his ROM exercises, daily ambulation, and use if ice as needed for pain/ inflammation. Distance Walked in Feet 200 feet with FWW. Assistive Device: FWW Assist: Modified [place] Gait Description: Step-To Gait Pattern Decreased foot clearance on LLE secondary to 40 year old nerve injury. Gait Limitations: Fatigue Transfer STG and Status Rolling: Modified [place] Goal Status at Discharge: Goal Met Sit-Supine: Modified [place] Goal Status at Discharge: Goal Met Sitting Edge of Bed: Modified [place] Goal Status at Discharge: Goal Met Supine-Sit: Modified [place] Goal Status at Discharge: Goal Met Goal Status at Discharge: Goal Met Goal Status at Discharge: Goal Met Goal Status at Discharge: Goal Met Distance Walked: 200 feet Goal Status at Discharge: Goal Partially Met Barriers Limiting Function: Activity Tolerance, Pain Transfer LTG and Status Comment It should be noted that patient's initial evaluation was completed on a paper form that will be scanned into patient's EMR at discharge secondary to evaluating PT not having compute access. Plan of Care Goals and Status STG: Plan-Treatment Functional: Amb Safe w/ AD on level Goal Status at Discharge: Goal Met Discharge Recommendations: Caregiver support Service Recommendations: Continue Service (on an outpatient basis) Rationale for Recommendations Patient continues to lack a significant amount of knee flexion. He has demonstrated consistent safety with transfers and ambulation using FWW to the point he can safely return home. Coding Time In: 1052 Time Out: 1136 Total Minutes: 44 Patient completed prone knee flex/ext AROM, contract relax with quads in prone to promote further quad relaxation, SAQ, SLR. Patient continues to have slow but improving left knee AROM, with flexion being significantly limited. [address] PT November 21, 2016 15:17
--- NOTE | 2016-11-26 12:38 | OT Therapy Evaluation (E) ---
Discharge Summary Service Date/Time 11/26/16, 12:33 Primary Diagnosis: (1) Total knee replacement status ICD Code: Z96.659 Treatment Diagnosis: (1) Weakness ICD Code: R53.1 Onset Date: 11/04/16 Start of Care Date: November 10, 2016 Summary of Discharge Therapy Comments Pt was seen for 11 occupational therapy sessions following initial evaluation. Pt demonstrated good progress towards goals and increased independence with self care tasks and functional transfers. Education was provided on the use of adaptive equipment for lower body dressing to improve independence and ease of completing secondary to limited knee flexion. Additionally education was provided education on adaptive equipment for home safety including transfer style tub bench and raised toilet seat with grab bars. Short Term Goals/Status Will Dress Upper Extremity: With Setup/SBA (with beekeeper farmer and sock aid v/c) Will Dress Lower Extremity: With Min Assistance (GOAL MET.) Will Do Bathing: With Setup/SBA (GOAL MET.) Will do Toileting: With Min Assistance (GOAL MET.) Will Perform Functional Transf: With Setup/SBA (GOAL MET.) STG #1 Pt will participate in 20 min of ther-ex with four or less rest breaks. GOAL MET. STG #2 Pt will complete grooming tasks standing at sink with SBA. Set up in sitting. Halfway Goals/ Status Will Dress Upper Extremity: Independently (GOAL MET.) Will Dress Lower Extremity: Independently (min for L shoe brace) Will do Tub/Shower Transfer: Independently (SBA) Will Bathe Self: Independently (GOAL MET.) Will do Toilet Transfers: Independently (GOAL MET.) Will do Toilieting: Independently (GOAL MET.) Will Perform Kitchen Mobility: Independently (NOT MET.) LTG # 1 Pt will participate in 5 minute functional standing task with demonstration of good safety awareness and modified independence. GOAL MET. Discharge Recommendations: Home w/ Family Support BIJU RM OT November 26, 2016 12:38
== END 2016-11-21 15:04 | disposition home or self-care (01) | DRG 560 ==
LOC: MED/SURG 10:45
PROVIDERS: ADMIT Family Medicine; ATTEND Family Medicine
DX: Z47.1 Aftercare following joint replacement surgery (principal); M96.842 Postprocedural seroma of a musculoskeletal structure following a musculoskeletal system procedure; Z96.652 Presence of left artificial knee joint; E11.42 Type 2 diabetes mellitus with diabetic polyneuropathy; E11.22 Type 2 diabetes mellitus with diabetic chronic kidney disease; I12.9 Hypertensive chronic kidney disease with stage 1 through stage 4 chronic kidney disease, or unspecified chronic kidney disease; N18.9 Chronic kidney disease, unspecified; I25.10 Atherosclerotic heart disease of native coronary artery without angina pectoris; N40.0 Benign prostatic hyperplasia without lower urinary tract symptoms; E66.9 Obesity, unspecified; Z68.37 Body mass index [BMI] 37.0-37.9, adult; Y83.1 Surgical operation with implant of artificial internal device as the cause of abnormal reaction of the patient, or of later complication, without mention of misadventure at the time of the procedure; Z79.84 Long term (current) use of oral hypoglycemic drugs; Z79.02 Long term (current) use of antithrombotics/antiplatelets; Z95.5 Presence of coronary angioplasty implant and graft; Z86.718 Personal history of other venous thrombosis and embolism
CPT/HCPCS: 36415; 80048; 80069; 82550; 83605; 85025; 97014

== ENCOUNTER 2016-11-28 14:00 | Outpatient (RCR) | payer MEDICARE, OTHER ==
[~2016-11-28 14:00] MED LIST changes: +ATOR40TA59 PO; +CYCL10TA45 PO; +DULO20CA PO; +GLIM1TAB PO; +LISI1TAB8 PO; +METH500T PO; +NF-METHYLP PO; +OXYC1TAB12 PO; +POLY17PO6 PO; +RIVA10TA2 PO; +TAMS-8 PO; +TRM50T PO
--- NOTE | 2016-11-29 12:33 | PT/OT/ST INITIAL EVALUATION ---
Department of Health and Human Services Form Approved [facility] [employer] Fin[employer] Administration OMB No. [id number] PLAN OF CARE/ASSESSMENT FOR OUTPATIENT REHABILITATION (Complete for Initial Claims Only) 1. PATIENT'S NAME Thomas Skaggs 2. ACC # [id number] 3. [facility] [id number] 4. PROVIDER NO. [id number] 5. TYPE: PT 6. PRIOR HOSPITALIZATION 7. PRIMARY DX Left total knee arthroplasty 8. SECONDARY DX 9. ONSET DATE 11/04/2016 10. REFERRAL DATE 11/21/2016 11. SOC. DATE 11/24/2016 12. TIME OF EVAL Start 02:03 p.m. End 03:10 p.m. 12. REFERRING PHYSICIAN Gail Kitchen DO 13. CHARGES/UNITS PT evaluation 99706 2 units therapeutic exercise 56302 1 unit vasopneumatic device 80191 14. G CODES G8978 - CM G8979 - CJ 15. PRIOR LEVEL OF FUNCTION; PERTINENT HISTORY (Prior therapy results, reason for referral.) S: Reason for referral: Prior to therapy the patient consented to today's evaluation and treatment. The patient is a 61-year-old male referred by Gail Sheehan APRN and Dr. Matthew Kitchen. Following a 2 week hospital stay for swing bed services, following a total left knee arthroplasty, the patient under went on 11/04/2016. Dr. Rudolph abdullahi [facility] was the orthopedic surgeon who performed the patient's surgery. The patient does have a follow up appointment on 11/26/2016. Prior level of function: Prior to the surgery the patient was ambulating without an assisted device. He did have pain in the left knee and has a 40 year history of left foot drop secondary to a prior injury to his left lower extremity. The patient has 3 entry steps into his home with bilateral handrail. He was independent with all ADLs prior to surgery. Current level of function: The patient returned home from a 2 week stay in the hospital for rehabilitation in order to safely transition home. The patient is able to enter and exit his home without difficulty per his report. Left knee movement and ambulation tolerance are limited at this time as the patient is dependent upon a front wheeled walker. Pain level: Current pain level 10/10. The pain is described as constant along the knee joint with a feeling of significant tightness. Pain is aggravated by movement and is somewhat helped by pain medication. However, the patient denies taking pain medication since last night. Therapy history: The patient did undergo 2 weeks of daily rehabilitation with the exception of Sundays following his knee replacement and was discharged to home on 11/21/2016. Obstacles to delivery of care: This physical therapist is familiar with this patient as she worked with him in the hospital. The patient does have a significant pain level and difficulty with muscle firing which will impair his outcomes. Past medical history: Includes hypertension, diabetes mellitus type II, peripheral neuropathy, HLD, hypertension, as stated prior a prior nerve injury which resulted in foot drop from an accident at work 40 years ago. Current medications: Please see attached medication list. Patient's Goal: The patient's goal for physical therapy is to be able to ambulate without pain and to have decreased pain throughout the left knee joint. 16. INITIAL ASSESSMENT/SAFETY PRECAUTIONS/MEDICAL COMPLICATIONS (Level of function at start of care. Be specific, use objective measures, list problems.) O: APPEARANCE, OBSERVATION AND GAIT: The patient presents to physical therapy with use of a front wheeled walker demonstrating foot flat positioning and presence of an AFL in the left outer foot. The patient does report removing Steri-Strips this morning with PT noting 2 superficial skin tears at the mid knee joint line on the left. There is redness noted at the distal third of the incision with warmth noted a moderate edema. PALPATION: The patient has tenderness to palpation of the left knee joint line, tightness along the left IT band and tenderness noted as well. The patient does have normalized patellar mobility both superiorly and inferiorly and medially and laterally. SPECIAL TESTS: The patient has a 14/80 on the lower extremity functional index with an 82.5% disability. RANGE OF MOTION/FLEXIBILITY: Right flexion actively is 112 degrees, extension is 0 degrees. Left knee flexion assessed in sitting is 53 degrees, 70 degrees in supine but very painful. Left knee extension is lacking 10 degrees from straight. STRENGTH: Right hip flexion 4+/5, left 4/5. Knee extension on the right 5/5, left 3+/5. Knee flexion on the right 5/5, left 2+/5. Ankle dorsiflexion on the right 5/5, left 1/5 secondary to injury sustained 40 years ago. TODAY'S TREATMENT: Today's treatment consisted of progressing patient's range of motion and strengthening exercises as well as educating the patient on the plan for the remainder of his rehabilitation. The physical therapist performed passive stretching with the patient in prone and supine to improve knee flexion. Continued observation of the patient's incision should be completed secondary to presence of redness that was not noted during his rehabilitation in the hospital. Pain and swelling was addressed with the use of a vasopneumatic device to the left knee for 15 minutes. 17. INITIAL POC: (Specify procedures, modalities, short and jail goals) A: The patient presents to physical therapy approximately 2 1/2 weeks status post left total knee arthroplasty. The patient has significant pain and moderate swelling in the left knee joint as well as inability to properly fire hamstrings and quadriceps muscles. The patient does have significant range of motion limitations and strength deficits in the left lower extremity. The patient does have a fair outcome with regular therapy attendance and compliance with his home exercise program and taking pain medication as needed. OUTCOMES ASSESSMENT: The patient scores a 82.5% disability on the lower extremity functional index G8978 - CM. INFORMED CONSENT: The diagnosis, prognosis, treatment plan, risks, and expected outcomes were discussed with this patient and he is agreeable to today's established plan of care. THERAPY GOALS X 3 WEEKS: 1. The patient will improve left knee extension to be 0 degrees extension to be a minimum of 90 degrees. 2. The patient will be able to ambulate with the use of a single point cane 200 ft with improved terminal knee extension on the left. 3. The patient will report independence and compliance with his home exercise program on a daily basis. THERAPY GOALS X 6 WEEKS: 1. The patient will improve left knee flexion to be actively a minimum of 105 degrees. 2. The patient will demonstrate 4/5 knee flexion, extension, and strength on the left to improve knee control. 3. The patient will demonstrate the ability to ambulate without use of an assisted device community distances to return near to his prior level of function. 4. The patient will be able to complete 5 sit to stand transfers without use of his upper extremities to demonstrate improved power in the lower extremities. P: Plan to treat this patient 5 times a week for 2 weeks followed by 3 times a week for 4 weeks in order to address significant range of motion limitations and strength deficits in the left lower extremity following left total knee arthroplasty. Physical therapy interventions will include modalities as needed to decrease pain and swelling. Manual therapy techniques will be utilized including joint mobilizations and scar tissue mobilizations as well as soft tissue and deep tissue mobilization. Therapeutic exercise will consist of active range of motion, active assist range of motion, passive stretching, and progressive strengthening. Gait and balance training will also be utilized to improve patient's functional ambulation. Neural reeducation will be utilized to improve patient's accurate muscle firing of the quadriceps and hamstring tendons. The patient was educated on exercises to continue at home and these will be progressed if needed. Thank you for the referral of this patient. 18. FREQUENCY 19. DURATION 20. FUNCTIONAL LEVEL (End of claim period) 21. PHYSICIAN SIGNATURE ? ON FILE OR ENTER HERE: 22. DATE: I certify the need for these services furnished under this plan of care and if for partial hospitalization. 23. CERTIFICATION FROM THROUGH FORM [id number]
== END 2016-12-01 09:29 | disposition home or self-care (01) ==
LOC: PT 14:00
DX: Z47.1 Aftercare following joint replacement surgery (principal); Z96.652 Presence of left artificial knee joint
CPT/HCPCS: 97016; 97110; 97140; 97161; G8978; G8979